=== PATIENT | female | born 1995 | race Caucasian/White ===

== ENCOUNTER → 2018-01-02 11:05 | Outpatient (CLI) | payer MEDICAID, SELFPAY ==
[2018-01-02 11:32] LABS: Basophils % 0.6 % (0.1-2.0); Eosinophils # 0.6 K/mm3 (0.0-0.4); Eosinophils % 7.4 % (0.1-12.0); Hematocrit 39.6 % (37.0-47.0); Hemoglobin 13.1 g/dL (12.2-16.2); Lymphocytes # 2.2 K/mm3 (0.7-4.5); Mean Corpuscular HGB Conc 33.1 g/dL (31.8-35.4); Mean Corpuscular Hemoglobin 29.8 pg (27.0-31.2); Mean Platelet Volume 7.5 fl (7.4-10.4); Monocytes # 0.5 K/mm3 (0.1-1.0); Monocytes % 6.3 % (1.7-9.3); Neutrophils # 4.2 K/mm3 (1.8-7.8); Neutrophils % 56.7 % (37.0-80.0); Platelet Count 265 K/mm3 (142-424); Red Cell Distribution Width 14.5 % (11.5-17.5); White Blood Count 7.5 K/mm3 (4.8-10.8)
[2018-01-03 08:15] LABS: HIV Screen 4th Generation wRfx Non Reactive (Non Reactive); Hepatitis B Surface Antigen Negative (Negative); Hepatitis C Antibody <0.1 s/co ratio (0.0-0.9)
[2018-01-03 17:27] LABS: Rapid Plasma Reagin Ab Titer Non Reactive (NonRea<1:1)
== END ==
PROVIDERS: Visit Provider Nurse Practitioner Obstetrics & Gynecology
DX: Z34.90 Encounter for supervision of normal pregnancy, unspecified, unspecified trimester (principal)
CPT/HCPCS: 36415; 85025; 86592; 86703; 86762; 86850; 87340; 87380; G0432

== ENCOUNTER → 2018-01-07 13:50 | Outpatient (CLI) | payer MEDICAID, SELFPAY ==
--- NOTE | 2018-01-07 13:50 | US_ITS ---
US OB transvaginal HISTORY: Evaluate gestational age/viability ITS.REASON: DATES ORDERING PHYSICIAN: Luis Ferrell MD PATIENT AGE: 22 years COMPARISON: None FINDINGS: An intrauterine gestational sac is present with a pole with a crown-rump length of 0.95cm correlating to gestational age of 6w5d. heart tones are present with an FHR of 149 bpm's. Yolk sac is noted. Adnexa: There is a 17 mm left ovarian cyst. IMPRESSION: Live intrauterine gestation at 6 weeks 5 days with an estimated due date of 08/28/2018. 17 mm left ovarian cyst
== END ==
PROVIDERS: Family Provider Family Medicine; PCP Family Medicine; Visit Provider Nurse Practitioner Obstetrics & Gynecology
DX: O26.841 Uterine size-date discrepancy, first trimester (principal)
CPT/HCPCS: 76830

== ENCOUNTER → 2018-04-09 13:28 | Outpatient (CLI) | payer MEDICAID, SELFPAY ==
--- NOTE | 2018-04-09 13:31 | US_ITS ---
US OB /maternal detail: INDICATION: ITS.REASON: US OB Complete-20 wk+ Anatomy Scan ORDERING PHYSICIAN: Luis Ferrell MD PATIENT AGE: 22 years TECHNIQUE: ultrasound transabdominal scanning. COMPARISON: No previous relevant studies. FINDINGS: Single viable intrauterine gestation. Cephalic position. Placenta: Posterior Placenta w/ Lateral wrap placenta grade 1. There is average amount fluid. Complete survey performed and was unremarkable on the submitted images as in PACS. No discrete anomalies identified on survey imaging by technologist. Active fetus. Three-vessel cord with satisfactory umbilical cord insertion. 4- chamber heart noted. Survey of brain & ventricles unremarkable. Face and neck survey unremarkable. Diaphragm and chest views unremarkable. Abdomen: Both kidneys noted and unremarkable. Stomach noted and satisfactory. Spine: Survey of the spine satisfactory with no anomalies identified nor imaged. Both arms and legs noted. Amniotic Fluid: Adequate. Maternal adnexa: No significant findings. Measurements: Average ultrasound age 20w1d. Gestational Age 20w4d. Estimated due date by ultrasound age 1008/26/2018. Estimated weight 309 grams. This is 10th percentile based on last menstrual period BPD = 21w0d OFD = 20w5d HC = 20w0d AC = 20w1d FL = 19w1d Heart Rate = 150 bpm Cerebellum = 20w0d Humerus = 19w5d HC/AC is 1.18 (1.09-1.26). CI is 80% ( 70-86%). FL/BPD is 60%. FL/AC is 20%. IMPRESSION: Single live fetus in cephalic presentation with an average ultrasound age of 20 weeks 1 day. Estimated due date is 08/26/2018. No obvious anomalies. Please see above for detail
== END ==
PROVIDERS: Family Provider Family Medicine; PCP Family Medicine; Visit Provider Nurse Practitioner Obstetrics & Gynecology
DX: Z36.0 Encounter for antenatal screening for chromosomal anomalies (principal)
CPT/HCPCS: 76811

== ENCOUNTER 2018-05-13 17:18 | Outpatient (CLI) | payer MEDICAID, SELFPAY ==
[2018-05-13 17:33] VITALS: BP 101/68; PULSE 98; RESP 18; TEMP 37.1; O2SAT 100
[2018-05-13 17:46] LABS: Microscopic, Urine URINE MICROSCOPIC (MICROSCOPIC)
[2018-05-13 17:48] LABS: Appearance,Urine SL CLOUDY (Clear); Blood, Urine Negative (Negative); Color,Urine YELLOW (Yellow); Glucose,Urine (UA) Negative (Negative); Ketones,Urine TRACE (Negative); Leukocyte Esterase,Urine 1+ (Negative); Nitrate,Urine Negative (Negative); Protein,Urine Negative (Negative); Specific Gravity, Urine 1.025 (1.005-1.030)
[2018-05-13 17:54] LABS: Bilirubin,Urine Negative (Negative)
[2018-05-13 18:52] LABS: Bacteria,Urine 1+ /lpf; WBC,Urine Occasional #/hpf (0-3)
== END 2018-05-13 18:10 | disposition home or self-care (01) ==
LOC: OBOUT 17:19 → OB 17:20
PROVIDERS: PCP Family Medicine; Visit Provider Obstetrics & Gynecology
DX: O26.92 Pregnancy related conditions, unspecified, second trimester (principal); Z3A.25 25 weeks gestation of pregnancy; R11.2 Nausea with vomiting, unspecified
CPT/HCPCS: 59025; 81001; 87086

== ENCOUNTER → 2018-06-19 08:34 | Outpatient (CLI) | payer MEDICAID, SELFPAY ==
[2018-06-19 09:59] LABS: Glucose,Fasting 95 mg/dL (60-105)
[2018-06-19 11:31] LABS: Glucose 1 Hour 154 mg/dL (74-106)
[2018-06-19 11:53] LABS: Glucose 2 Hour 130 mg/dL (74-106)
[2018-06-19 12:40] LABS: Glucose 3 Hour 104 mg/dL (74-106)
== END ==
PROVIDERS: Family Provider Family Medicine; PCP Family Medicine; Visit Provider Nurse Practitioner Obstetrics & Gynecology
DX: R73.09 Other abnormal glucose (principal)
CPT/HCPCS: 36415; 82951

== ENCOUNTER → 2018-07-29 16:50 | Outpatient (REF) | payer MEDICAID, SELFPAY | LOC: LAB 16:50 | PROVIDERS: Visit Provider Nurse Practitioner Obstetrics & Gynecology | DX: Z34.90 Encounter for supervision of normal pregnancy, unspecified, unspecified trimester (principal) | CPT/HCPCS: 86403 ==

== ENCOUNTER 2018-08-15 22:51 | Inpatient (IN) ==
[2018-08-16 03:05] LABS: Basophils # 0.1 K/mm3 (0-0.2); Basophils % 0.4 % (0.1-2.0); Eosinophils # 0.2 K/mm3 (0.0-0.4); Eosinophils % 1.6 % (0.1-12.0); Hematocrit 28.8 % (37.0-47.0); Hemoglobin 9.8 g/dL (12.2-16.2); Lymphocytes # 1.9 K/mm3 (0.7-4.5); Lymphocytes % 14.5 K/mm3 (10-50); Mean Corpuscular HGB Conc 34.1 g/dL (31.8-35.4); Mean Corpuscular Hemoglobin 28.7 pg (27.0-31.2); Mean Corpuscular Volume 84.1 fl (81-99); Mean Platelet Volume 7.4 fl (7.4-10.4); Monocytes # 0.6 K/mm3 (0.1-1.0); Monocytes % 4.7 % (1.7-9.3); Neutrophils # 10.2 K/mm3 (1.8-7.8); Neutrophils % 78.8 % (37.0-80.0); Platelet Count 302 K/mm3 (142-424); Red Blood Count 3.43 M/mm3 (4.20-5.40); Red Cell Distribution Width 14.9 % (11.5-17.5); White Blood Count 12.9 K/mm3 (4.8-10.8)
[2018-08-16 03:18] LABS: Albumin Level 2.6 gm/dL (3.4-5.0); Albumin/Globulin Ratio 0.7 (1.1-1.8); Bilirubin,Total 0.4 mg/dL (0.2-1.0); Calcium 8.2 mg/dL (8.5-10.1); Globulin 3.9 gm/dl (1.3-3.2); Total Protein,Serum 6.5 gm/dL (6.4-8.2)
--- NOTE | 2018-08-16 08:44 | Progress Note ---
[facility] Anesthesia Checklist - Patient Identification Patient Identification: Arm Band, Verbal (Name & ) - Structural Data Admitted From: Inpatient Planned Operative Procedure/s: btl Consent for Planned Operative Procedure(s) Verified: Yes Verified Documents: Surgical Consent - NPO Status Verified Time NPO: 00:00 - Additional verifications Patient : Yes Anesthesia Reactions: No Hx Blood Transfusions: No Blood Transfusion Reaction: No Cephalosporin Allergy: No Previous Colonoscopy: No - Cardiovascular Assessment Heart Sounds: S1 & S2 Pulse Strength: Baseline Pulse Rhythm: Regular Peripheral Edema: No - Airway Assessment C-Spine Mobility Assessed: Yes TMJ Mobility Assessed: Yes Dentition: Good Dentition - Neurological Assessment Level of Consciousness: Awake, Alert, Appropriate Hx Seizures: No Numbness or tingling in extremities: No - Anesthesia Plan Anesthesia Risk discussed: Yes Anesthesia Plan: Verified ASA Class: II Anesthesia Type: Spinal [facility] History I have reviewed the patient's past medical history: Yes Medical History: Reports:: Anxiety, Nephritis Denies:: Depression, Diabetes Mellitus Type 1, Hyperlipidemia, Hypertension, Migraine, MRSA, Seizures Other Surgeries: Yes: , Other Amputation: No Fractures: No - *Social History Smoking Status: Current every day smoker Tobacco Type: cigarettes Alcohol Intake: never Substance Use Type: denies use - Psychiatric History Pschychiatric History:: Reports:: Anxiety Denies:: Depression *Family Hx:: No significant family history 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
--- NOTE | 2018-08-16 09:02 | History & Physical Report ---
OB - H&P: HPI Antepartum - History of Present Illness Chief complaint: Contractions History of present illness: She is a 23-year-old 7 para 5 abortus 1 at 38 and 6 weeks gestational age. She came in having regular contractions. We attempted to stop her contractions with IV fluids and Brethine. She continued however to have contractions every 5 minutes. She changed her cervix from 2-4 cm. As result of that we will go ahead with a repeat lower segment transverse section. She would also like a bilateral salpingectomy. - History of Present Criteria for establishing EDC:: LMP confirmed by 1st trimester US care: good care Ultrasounds: normal 1st trimester US, normal mid trimester US Obstetrical complications: none, previous Medical complications: none [facility] History I have reviewed the patient's past medical history: Yes Medical History: Reports:: Anxiety, Nephritis Denies:: Depression, Diabetes Mellitus Type 1, Hyperlipidemia, Hypertension, Migraine, MRSA, Seizures Other Medical History: Denies: Blood Transfusion Reaction Other Surgeries: Yes: , Other Amputation: No Fractures: No - *Social History Smoking Status: Current every day smoker Tobacco Type: cigarettes Alcohol Intake: never Substance Use Type: denies use - Psychiatric History Pschychiatric History:: Reports:: Anxiety Denies:: Depression *Family Hx:: No significant family history 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 Review of Systems - Review of Systems Review of systems:: pertinent systems reviewed and negative unless documented below Meds Home Medications Medication Instructions Recorded Confirmed Type pediatric multivitamin no.49 1 tab PO DAILYP PRN 12/30/17 08/12/18 History chewable tablet Ferrous Sulfate 325 mg PO DAILY 08/15/18 08/15/18 History Allergies Allergy/AdvReac Type Severity Reaction Status Date / Time morphine [MORPHINE] Allergy Unknown Verified 08/12/18 13:49 oxycodone [From PERCOCET] Allergy Unknown Verified 08/12/18 13:49 OB - H&P: Exam - Physical Exam Vital signs: Temp Pulse Resp BP Pulse Ox 98.1 F 95 H 18 120/67 100 08/15/18 23:28 08/15/18 23:28 08/15/18 23:28 08/15/18 23:28 08/15/18 23:28 - Constitutional no acute distress - Routine HEENT Exam Head: Present: normocephalic Eye: Present: EOMI, PERRL ENT: Present: mucous membranes moist - Routine Neck Exam Present: supple, full ROM - Routine Respiratory Exam Absent: accessory muscle use (good air entry bilaterally), respiratory distress, wheezes, crackles - Routine Cardiovascular Exam Present: RRR. Absent: murmur - Routine Abdominal Exam Present: soft, normoactive bowel sounds. Absent: tenderness, distended, guarding - Routine Rectal Exam Patient deferred: visual exam, digital exam - Routine Exam Patient deferred: external exam, groin exam, perineal exam - Routine Extremities Exam Present: full ROM. Absent: cyanosis, edema - Routine Skin Exam Present: intact. Absent: cyanosis - Routine Neurological Exam Present: alert, oriented X3 - Routine Psychiatric Exam Present: normal affect OB - Results - Labs Labs: Short CBC 08/16/18 Range/Units 02:55 WBC 12.9 H (4.8-10.8) K/mm3 Hgb 9.8 L (12.2-16.2) g/dL Hct 28.8 L (37.0-47.0) % Plt Count 302 (142-424) K/mm3 BMP 08/16/18 02:55 Sodium 137 Potassium 3.0 L Chloride 103 Carbon Dioxide 24 BUN 4 L Creatinine 0.58 Glucose 103 Calcium 8.2 L Liver Function 08/16/18 Range/Units 02:55 Total Bilirubin 0.4 (0.2-1.0) mg/dL AST 12 L (15-37) U/L ALT 14 (12-78) U/L Alkaline Phosphatase 178 H (46-116) U/L Albumin 2.6 L (3.4-5.0) gm/dL OB - A/P Antepartum (1) Previous section complicating Current visit: Yes Status: Acute (2) Encounter for tubal ligation Current visit: Yes Status: Acute - Additional Plan Planning to breastfeed?: Yes Plan: other Additional Information:: She has had a previous section so we will go ahead with a repeat lower segment transverse section. Also like a bilateral salpingectomy.
--- NOTE | 2018-08-16 09:58 | Operative Note ---
Date of procedure: 08/16/18 Pre-op Diagnosis:: Term , active labor, desire for sterilization, previous section Post-op Diagnosis:: Term , previous section, desire sterilization, active labor Procedure performed:: Repeat lower segment transverse section and bilateral salpingectomy Surgeon:: Luis Ferrell MD Geology Faculty Member(s):: Dr. Villafuerte SECURITIES SUPERVISOR:: Chucky Garcia Anesthesia: spinal Estimated blood loss (mL): 600 Clinical Note:: She is a 23-year-old 7 para 5 aborta 1 who was 38 and 6 weeks gestational age. She was admitted overnight with contractions and changed her cervix from 2-4 cm. She was scheduled for a repeat section in about 48 hours. As a result of the labor and changes in her cervix we elected to go ahead with a repeat lower segment transverse section. She still expresses her sterilization so we performed a bilateral salpingectomy as well. Operative findings:: She delivered a liveborn male child in the cephalic mentation by section at 9:21 AM on the morning of August 16, 2018. The baby had Apgars of 9 at 1 minute and 9 at 5 minutes. There was a loose cord. Ovaries and tubes appeared normal. Operative note:: She was taken to the operating room where spinal anesthesia was found be adequate. She was prepped and draped in normal sterile fashion in the supine position with a leftward tilt. A Bolaños catheter was in the bladder. She had a 1/4 inch wide keloid scar. A Pfannenstiel skin incision was made with knife along each side of her scar tissue. I then removed the scar tissue using cautery. We then carried through to the underlying layer of fascia with caute ry. The fascia was opened in the midline with cautery and extended laterally using Thompson scissors. Farhad clamps were applied to the superior aspect of the fascial incision which was tented up and the underlying rectus muscles dissected off using cautery. The [place] clamps were then applied to the inferior aspect of the fascial incision which in a similar fashion was tented up and the underlying rectus muscles dissected off using cautery. The rectus muscles were then in the midline, the peritoneum identified, and entered sharply with Metzenbaum scissors. This incision was then extended superiorly and inferiorly with cautery. We had good visualization of the bladder inferiorly. The bladder peritoneum was then opened in the midline and extended laterally using Metzenbaum scissors. A bladder flap was created digitally. The lower blade of the Tori was inserted so as to push the bladder out of the way. Transverse incision was made through the uterine muscle to the amnion. This in cision was then extended laterally using fingers traction. The amnion was entered sharply with knife. The 's head was then delivered atraumatically. A loose nuchal cord was easily reduced. This was followed by the anterior shoulder and the rest of the 's body atraumatically. The oropharynx and nasopharynx were bulb suctioned. The infant was then handed off to Dr. Adams who assigned Apgars of 9 at 1 minute and 9 at 5 minutes. We then obtained cord blood as well as cord pH. Using gentle traction on the cord and countertraction on the fundus I was able to easily deliver the placenta intact. It had a normal three-vessel cord. The uterus was then cleared of clots and debris and exteriorized from the abdominal cavity. The uterine incision was then closed using running 0 Vicryl suture in a locked fashion. A second layer of the same suture was used to imbricate the first layer. The bladder peritoneum was then closed using running 2-0 Vicryl suture in a locked fashion. We then performed a bilateral salpingectomy by grasping the distal end of the tube and using the side of the cautery blade I cauterized along the mesosalpinx. I then cauterized along the tube at the uterine cornua. This was followed by the same procedure on the left tube. There is a small amount of bleeding along the mesosalpinx and 2 [id number] sutures were used to obtain excellent hemostasis. The gutters and cul-de-sac were then cleared of clots and debris and the uterus was returned the abdominal cavity. Once again hemostasis was assured. The peritoneum was grasped with Rhea clamps and closed using running 2-0 Vicryl suture. The rectus muscles were then reapproximated using running 0 Vicryl suture. The fascia was closed using running #1 Vicryl suture. The subcutaneous tissues were then irrigated with warm water followed by closure Zakiya's fascia using running 2-0 Monocryl suture. The skin was closed with kristin. The skin was then cleaned with Hibiclens twice. Sterile dressings were applied. She tolerated the procedure well and was taken to the recovery room in excellent condition. All sponges minute and needle counts were correct. Estimate a blood loss was approximately 600 mL. Condition: stable Disposition: PACU Specimens:: bilateral fallopian tubes Complications:: None
--- NOTE | 2018-08-16 10:04 | Progress Note ---
[facility] Anesthesia Record Part I Intake, IV Amount: 1,250 Estimated blood loss (mL): 600 Urine output (mL): 500 Blood Products used (#): none Blood Pressure: 108/61 SaO2: 100 Pulse Rate: 136 Respiratory Rate: 22 Temperature: 97.8 F Patient is:: Awake, Stable Stable to PACU at:: 10:00
--- NOTE | 2018-08-16 10:05 | Progress Note ---
[facility] Anesthesia Record Part II Discharge Time: 10:30 Destination: OB Outpatient Service PACU nurse assessment reviewed?: Yes Patient Condition:: Good Anesthesia Complications:: None
--- NOTE | 2018-08-16 11:33 | Pharmacy Consult Notes ---
[facility] Pharmacy VTE Monitoring - Patient Demographics Admission date: 08/16/18 Report Date: 08/16/18 Time: 11:32 Allergies/Adverse Reactions: Patient Allergies morphine [MORPHINE] Allergy (Unknown, Verified 08/12/18 13:49) oxycodone [From PERCOCET] Allergy (Unknown, Verified 08/12/18 13:49) Height: 1.6 m Weight: 58.513 kg Patient Problems: Current Active Problems Previous section complicating (Acute) Encounter for tubal ligation (Acute) - VTE Risk Labs: VTE Related Lab Results Hgb 9.8 g/dL (12.2-16.2) L 08/16/18 02:55 Hct 28.8 % (37.0-47.0) L 08/16/18 02:55 Plt Count 302 K/mm3 (142-424) 08/16/18 02:55 BUN 4 mg/dL (7-18) L 08/16/18 02:55 Creatinine 0.58 mg/dL (0.55-1.02) 08/16/18 02:55 Estimated Creat Clear 138 mL/min (0-300) 08/16/18 02:55 - Prophylaxis VTE Prophylaxis Ordered?: Yes Types of VTE Prophylaxis: IPCS Thigh High Location of Applied Device: Bilateral Lower Extremeties - VTE Diagnosis Confirmed Treatment or plan recommended: Continue Current Treatment
[2018-08-16 13:16] VITALS: BP 122/64
[2018-08-16 13:54] LABS: Microscopic, Urine URINE MICROSCOPIC (MICROSCOPIC)
[2018-08-16 14:14] LABS: Appearance,Urine CLEAR (Clear); Bilirubin,Urine Negative (Negative); Blood, Urine Negative (Negative); Color,Urine YELLOW (Yellow); Glucose,Urine (UA) Negative (Negative); Ketones,Urine 2+ (Negative); Leukocyte Esterase,Urine Negative (Negative); Protein,Urine Negative (Negative)
[2018-08-16 14:51] LABS: Bacteria,Urine Trace /lpf; Squamous Epithelial Cell,Urine Occasional #/hpf (0-5)
[2018-08-17 06:36] LABS: Basophils % 0.3 % (0.1-2.0); Eosinophils # 0.2 K/mm3 (0.0-0.4); Eosinophils % 1.7 % (0.1-12.0); Hemoglobin 8.2 g/dL (12.2-16.2); Lymphocytes # 1.6 K/mm3 (0.7-4.5); Lymphocytes % 14.1 K/mm3 (10-50); Mean Corpuscular HGB Conc 31.9 g/dL (31.8-35.4); Mean Corpuscular Hemoglobin 26.8 pg (27.0-31.2); Mean Corpuscular Volume 83.9 fl (81-99); Mean Platelet Volume 7.7 fl (7.4-10.4); Monocytes # 0.8 K/mm3 (0.1-1.0); Monocytes % 6.9 % (1.7-9.3); Neutrophils # 8.5 K/mm3 (1.8-7.8); Platelet Count 296 K/mm3 (142-424); Red Blood Count 3.08 M/mm3 (4.20-5.40)
[2018-08-17 06:44] LABS: Hematocrit 25.8 % (37.0-47.0)
--- NOTE | 2018-08-17 12:05 | Progress Note ---
Internal Medicine - PN: Subj *Date: 08/17/18 *Time: 12:05 Interval history: She continues to do well. She is eating and drinking and ambulating for her pain is reasonably well controlled although I think we can do better and we will increase her Lortab to 15 mg every 4 hours instead of 7.5. Exam Vital signs and Labs for Last 24 Hours: Temp Pulse Resp BP Pulse Ox 97.5 F L 79 20 122/64 100 08/16/18 10:30 08/16/18 10:30 08/16/18 10:30 08/16/18 10:30 08/16/18 10:30 Laboratory Results - last 24 hr 08/16/18 03:20: Urine Color Yellow, Urine Appearance Clear, Urine pH 7.0, Ur Specific [place] 1.010, Urine Protein Negative, Urine Glucose (UA) Negative, Urine Ketones 2+, Urine Blood Negative, Urine Nitrate Negative, Urine Bilirubin Negative, Urine Urobilinogen 1.0, Ur Leukocyte Esterase Negative, Urine RBC None, Urine WBC 3-5, Ur Squamous Epith Cells Occasional, Urine Bacteria Trace 08/17/18 06:09: WBC 11.0 H, RBC 3.08 L, Hgb 8.2 L, Hct 25.8 L, MCV 83.9, MCH 26.8 L, MCHC 31.9, RDW 15.0, Plt Count 296, MPV 7.7, Neut % (Auto) 77.0, Lymph % (Auto) 14.1, [place] % (Auto) 6.9, Eos % (Auto) 1.7, Baso % (Auto) 0.3, Neut # (Auto) 8.5 H, Lymph # (Auto) 1.6, [place] # (Auto) 0.8, Eos # (Auto) 0.2, Baso # (Auto) 0.0 I & O for Last 24 hours: Intake & Output 08/15/18 08/16/18 08/17/18 08/18/18 11:59 11:59 11:59 11:59 Intake Total 1400 / 1400 Output Total 700 / 700 Balance 700 / 700 Weight 129 lb - Constitutional no acute distress Assessment and Plan (1) Previous section complicating Current visit: Yes Status: Acute Category: Medical Code(s): O34.219 - Maternal care for unspecified type scar from previous delivery (2) Encounter for tubal ligation Current visit: Yes Status: Acute Category: Medical Code(s): Z30.2 - Encounter for sterilization - Assessment and plan all Dx Assessment and Plan for all problems:: She continues to do well. We will increase her Lortabs. We will plan to send her home in 48 hours.
--- NOTE | 2018-08-18 09:27 | Progress Note ---
Internal Medicine - PN: Subj *Date: 08/18/18 *Time: 09:25 Interval history: She is doing very well. She is eating and drinking and ambulating. She is breast-feeding. Her lochia is normal. Her incision is clean and dry. Her pain is somewhat improved today. Exam Vital signs and Labs for Last 24 Hours: Temp Pulse Resp BP Pulse Ox 97.5 F L 79 20 122/64 100 08/16/18 10:30 08/16/18 10:30 08/16/18 10:30 08/16/18 10:30 08/16/18 10:30 I & O for Last 24 hours: Intake & Output 08/15/18 08/16/18 08/17/18 08/18/18 11:59 11:59 11:59 11:59 Intake Total 1400 / 1400 Output Total 700 / 700 Balance 700 / 700 Weight 129 lb - Constitutional no acute distress - *Routine Abdominal Exam Present: soft (Her incision is clean and dry), normoactive bowel sounds. Absent: tenderness, rebound, guarding, mass Assessment and Plan (1) Previous section complicating Current visit: Yes Status: Acute Category: Medical Code(s): O34.219 - Maternal care for unspecified type scar from previous delivery (2) Encounter for tubal ligation Current visit: Yes Status: Acute Category: Medical Code(s): Z30.2 - Encounter for sterilization - Assessment and plan all Dx Assessment and Plan for all problems:: She is doing well. We will plan to send her home tomorrow.
--- NOTE | 2018-08-19 08:19 | Discharge Summary ---
General - General Admission date:: 08/16/18 Discharge date: 08/19/18 HPI HPI: She is a 23-year-old 7 now para 6 aborta 1 who is 38 and 6 weeks gestational age. She was scheduled for a repeat lower segment transverse section but came in in active labor. She also expressed desire for sterilization and was offered bilateral salpingectomy at the time of . Hospital Course Hospital Course: On August 16, 2018 she underwent a repeat lower segment transverse section and bilateral salpingectomy. She delivered a liveborn male child at 9:21 AM that weighed 7 pounds 6 ounces. He had Apgars of 9 at 1 minute and 9 at 5 minutes. She has done well and has remained afebrile throughout her hospitalization. She is eating and drinking and ambulating. She is breast-feeding. Her lochia is normal. She has O+ blood, she is rubella immune and was group B streptococcus negative. Her vacuum drier tender is Dr. Adams. She is discharged home to follow-up with me in approximately 2 weeks time. She will take [id number] anti-inflammatories and she was given a prescription for Lortab 7.5/325 number 30 tablets. Objective Vital signs: Temp Pulse Resp BP Pulse Ox 97.5 F L 79 20 122/64 100 08/16/18 10:30 08/16/18 10:30 08/16/18 10:30 08/16/18 10:30 08/16/18 10:30 no acute distress DS: Diagnosis - Discharge Diagnosis (1) Previous section complicating Status: Acute (2) Encounter for tubal ligation Status: Acute Discharge Plan - Patient Discharge Instructions ACTIVITY: No heavy lifting DIET: continue same diet Patient Instructions: DI for Hemorrhage, Depression, DI for - Follow up Plan Disposition: Home, Self-Detention Medications: Home Medications Medication Instructions Recorded Confirmed Type pediatric multivitamin no.49 1 tab PO DAILY 12/30/17 08/16/18 History chewable tablet Ferrous Sulfate 325 mg PO DAILY 08/15/18 08/15/18 History Prescriptions/Medication Reconciliation: New Hydrocodone/Acetaminophen [Lortab 7.5/325mg tablet] 1 tab PO Q4HP PRN #30 tab PRN Reason: Moderate To Severe Pain Continue pediatric multivitamin no.49 chewable tablet 1 tab PO DAILY Ferrous Sulfate 325 mg PO DAILY
== END 2018-08-19 11:20 | disposition home or self-care (01) ==
LOC: OBOUT 22:51 → OB 22:51 → OBSVTOIN 08-16 01:27
PROVIDERS: ADMIT Nurse Practitioner Obstetrics & Gynecology; ATTEND Nurse Practitioner Obstetrics & Gynecology

== ENCOUNTER 2019-09-11 23:07 | Inpatient (IN) ==
[2019-09-11 23:38] LABS: Microscopic, Urine URINE MICROSCOPIC (MICROSCOPIC)
[2019-09-11 23:41] LABS: Basophils # 0.1 K/mm3 (0-0.2); Basophils % 0.3 % (0.1-2.0); Eosinophils # 0.5 K/mm3 (0.0-0.4); Eosinophils % 2.6 % (0.1-12.0); Hematocrit 50.9 % (37.0-47.0); Lymphocytes # 2.2 K/mm3 (0.7-4.5); Lymphocytes % 10.6 % (10-50); Mean Corpuscular HGB Conc 31.4 g/dL (31.8-35.4); Mean Corpuscular Volume 94.3 fl (81-99); Mean Platelet Volume 7.8 fl (7.4-10.4); Monocytes # 0.9 K/mm3 (0.1-1.0); Monocytes % 4.2 % (1.7-9.3); Neutrophils # 16.9 K/mm3 (1.8-7.8); Neutrophils % 82.3 % (37.0-80.0); Platelet Count 313 K/mm3 (142-424); Red Cell Distribution Width 13.5 % (11.5-17.5)
[2019-09-11 23:47] LABS: White Blood Count 20.5 K/mm3 (4.8-10.8)
[2019-09-11 23:50] LABS: Appearance,Urine CLEAR (Clear); Bilirubin,Urine Negative (Negative); Blood, Urine Negative (Negative); Color,Urine YELLOW (Yellow); Glucose,Urine (UA) Negative (Negative); Ketones,Urine Negative (Negative); Leukocyte Esterase,Urine 1+ (Negative); Protein,Urine Negative (Negative); Specific Gravity, Urine 1.025 (1.005-1.030); Urobilinogen,Urine 0.2 EU/dl (0.2)
[2019-09-11 23:53] LABS: Alanine Aminotransferase 15 U/L (12-78); Albumin Level 4.3 gm/dL (3.4-5.0); Albumin/Globulin Ratio 1.1 (1.1-1.8); Alkaline Phosphatase 59 U/L (46-116); Amylase 51 U/L (25-115); Anion Gap 13.7 mEq/L (5-15); Aspartate Amino Transferase 15 U/L (15-37); Bilirubin,Total 0.6 mg/dL (0.2-1.0); Blood Urea Nitrogen 12 mg/dL (7-18); C-Reactive Protein < 0.2 mg/dL (0.0-0.9); Calcium 8.7 mg/dL (8.5-10.1); Carbon Dioxide 26 mmol/L (21.0-32.0); Chloride 102 mmol/L (98-107); Globulin 3.9 gm/dl (1.3-3.2); Glucose 117 mg/dL (74-106); Sodium 138 mmol/L (136-145); Total Protein,Serum 8.2 gm/dL (6.4-8.2)
[2019-09-11 23:54] LABS: WBC,Urine 20-50 #/hpf (0-3)
[2019-09-12 00:02] LABS: Eosinophils % 5 % (0-3); Lymphocytes % 6 % (10-50); Monocytes % 1 % (2-9); Neutrophils % 80 % (42-76); RBC Morphology Normal; Total Cells Counted 100
[2019-09-12 00:05] LABS: Erythrocyte Sedimentation Rate 4 mm/hr (0-20)
--- NOTE | 2019-09-12 00:19 | Emergency Department Note ---
ED Disposition Clinical Impression: SIRS (systemic inflammatory response syndrome) UTI (urinary tract infection) Qualifiers: Urinary tract infection type: site unspecified Hematuria presence: without hematuria Qualified Code(s): N39.0 - Urinary tract infection, site not specified Cholelithiasis Qualifiers: Cholelithiasis location: gallbladder Cholecystitis presence: without cholecystitis Biliary obstruction: without biliary obstruction Qualified Code(s): K80.20 - Calculus of gallbladder without cholecystitis without obstruction Disposition: Admitted as Observation Condition on Discharge: Good Instructions: DI for Acute Abdomen Referrals: Bora Zhang APRN [Primary Care Provider] - - Critical Care Critical Care Time: No Attestation: On 09/11/19, the high probability of a clinically significant, sudden or life threatening deterioration of the following system(s) required my full and direct attention, intervention and personal management. The time I documented below is in addition to time spent performing reported procedures but includes the following listed in this critical care notation. Medical Decision Making - Medical Records Medical records reviewed: Yes: I reviewed the patient's medical records. - Tej Inquiry Pt receiving controlled substance: No Vital Signs: 09/11/19 23:19 Temperature 97.5 F L Temperature Source Oral Pulse Rate [Left Radial] 118 H Respiratory Rate 17 Blood Pressure [Right Arm] 131/81 Blood Pressure Mean [Right Arm] 97 Blood Pressure Source [Right Arm] Automatic Cuff Blood Pressure Position [Right Arm] Sitting 02 Sat by Pulse Oximetry 98 Oxygen Delivery Method Room Air - Lab Data Lab results reviewed: Yes: I reviewed the patient's lab results. Lab Results 09/11/19 23:20: Urine Color Yellow, Urine Appearance Clear, Urine pH 6.0, Ur Specific [place] 1.025, Urine Protein Negative, Urine Glucose (UA) Negative, Urine Ketones Negative, Urine Blood Negative, Urine Nitrate Negative, Urine Bilirubin Negative, Urine Urobilinogen 0.2, Ur Leukocyte Esterase 1+ A, Urine WBC 20-50, Ur Squamous Epith Cells 10-20 09/11/19 23:20: WBC 20.5 H*, RBC 5.40, Hgb 16.0, Hct 50.9 H, MCV 94.3, MCH 29.6, MCHC 31.4 L, RDW 13.5, Plt Count 313, MPV 7.8, Neut % (Auto) 82.3 H, Lymph % (Auto) 10.6, [place] % (Auto) 4.2, Eos % (Auto) 2.6, Baso % (Auto) 0.3, Neut # (Auto) 16.9 H, Lymph # (Auto) 2.2, [place] # (Auto) 0.9, Eos # (Auto) 0.5 H, Baso # (Auto) 0.1, Total Counted 100, Neutrophils % (Manual) 80 H, Band Neutrophils % 8.0, Lymphocytes % (Manual) 6 L, Monocytes % (Manual) 1 L, Eosinophils % (Manual) 5 H, Platelet Estimate Normal, RBC Morphology Normal, ESR 4 09/11/19 23:20: Sodium 138, Potassium 3.7, Chloride 102, Carbon Dioxide 26, Anion Gap 13.7, BUN 12, Creatinine 0.81, Estimated Creat Clear 76, Estimated GFR 86, Est GFR ( Amer) 104, Glucose 117 H, Calcium 8.7, Total Bilirubin 0.6, AST 15, ALT 15, Alkaline Phosphatase 59, C-Reactive Protein < 0.2, Total Protein 8.2, Albumin 4.3, Globulin 3.9 H, Albumin/Globulin Ratio 1.1, Amylase 51 09/11/19 23:20: Lipase 126 09/11/19 23:59: Lactate 0.8 Result diagrams: 09/11/19 23:20 09/11/19 23:20 Orders (Tests/Meds): ED MEDICATIONS Generic Name Dose Route Start Last Admin Trade Name Freq PRN Reason Stop Dose Admin Sodium Chloride 1,000 mls @ 999 mls/hr 09/11/19 23:45 09/11/19 23:37 Sod Chlor 0.9% 1000ml Bag IV 09/12/19 00:45 999 mls/hr .Q1H1M KATINA Administration Discontinued Medications Generic Name Dose Route Start Last Admin Trade Name Freq PRN Reason Stop Dose Admin Ertapenem 1 gm/ Sodium 50 mls @ 100 mls/hr 09/12/19 00:13 09/12/19 00:28 Chloride IV 09/12/19 00:14 100 mls/hr ONCE ONE Administration Protocol Ioversol 75 ml 09/12/19 01:00 09/12/19 01:01 Rad-Optiray 350 100ml Vial IV 09/12/19 01:01 75 ml ONCE ONE Administration Protocol Ketorolac Tromethamine 30 mg 09/11/19 23:33 09/11/19 23:37 Toradol 30mg/Ml Vial IV 09/11/19 23:34 30 mg ONCE ONE Administration Ondansetron HCl 4 mg 09/11/19 23:33 09/11/19 23:37 Zofran 4mg/2ml Vial IV 09/11/19 23:34 4 mg ONCE ONE Administration Sodium Chloride 10 ml 09/12/19 01:00 09/12/19 01:01 Rad-Saline Flush 10ml Syringe IV 09/12/19 01:01 10 ml ONCE ONE Administration ORDERS Category Date Time Status CT abdomen pelvis w con Stat Cat Scan 09/11/19 23:32 Taken Blood Culture Stat Micro 09/11/19 23:59 Received Urine Culture Stat Micro 09/11/19 23:20 Received - CT Data CT Scan: Abdomen, Pelvis Time Received: 01:[address] Reviewed: Yes: I have viewed the radiologist's interpretation Preliminary Findings: Abnormal (gallstone ) - Physician Consults Physician Consulted: pablo Reason -: Admission Nausea/Vomiting/Diarrhea HPI - General Chief complaint: Abdominal Pain Stated complaint: Pain in upper left abdomen;vomiting Time Seen by Provider: 09/11/19 23:40 Mode of Arrival: Ambulatory Source of Information: Patient, Medical Record Limitations: No Limitations Description of Symptoms (Recalled from ER Triage Doc. by RN): pt stated she has had chronic stomach pain for about 4 years but has increasingly gotten worse today in her LUQ. pt stated she has been nauseous and vomitting for the past 5 hours. - History of Present Illness HPI Narrative: pt with hx of upper abd pain with nausea with long hx of abd pain - worse last couple of days - MD complaint: nausea, vomiting, abdominal pain Onset (ago): hour(s) Associated Abdominal Pain: Yes Location of pain: LUQ Severity: moderate Associated symptoms: denies other symptoms - Related Data Previous Rx's Medication Instructions Recorded cephALEXin [Keflex 500mg Cap] 500 mg PO TID #30 cap 04/19/19 Allergies Allergy/AdvReac Type Severity Reaction Status Date / Time morphine [MORPHINE] Allergy Unknown Verified 09/01/18 13:59 oxycodone [From PERCOCET] Allergy Unknown Verified 09/01/18 13:59 [facility] History - Hepatitis A Screen Drug use history?: No High risk sexual behaviors?: No History of sexually transmitted infection?: No Currently employed?: No Childcare worker?: No Do you have indoor plumbing?: Yes Do you have electricity?: Yes Attestation statement:: This patient has been screened for Hepatitis A risk factors. I have reviewed the patient's past medical history: Yes Medical History: Reports:: Anxiety, Nephritis Denies:: Depression, Diabetes Mellitus Type 1, Hyperlipidemia, Hypertension, Migraine, MRSA, Seizures Other Medical History: Denies: Blood Transfusion Reaction Other Surgeries: Yes: , Other Amputation: No Fractures: No Comment: D&E 2013 - Social History Smoking Status: Current every day smoker Tobacco Type: cigarettes # Packs/Day (cigarettes): 1 Alcohol Intake: never Substance Use Type: denies use Occupational Status: unemployed - Psychiatric History Pschychiatric History:: Reports:: Anxiety Denies:: Depression Family Hx:: No significant family history Comment: Children Alive. Father Alive. Mother Alive. Siblings 2 brothers,1 sister,-healthy, 2 daughters EMERGENCY DISPATCHER history: Spontaneous Comment: #3-Miscarriage. #6- Complications Jeb Cardia ROS Obtained: Yes All systems reviewed & no additional complaints - Constitutional Constitutional: Denies fever(s), Reports malaise - Eyes Eyes: Denies change in vision - ENT Ears, Nose, Mouth, and Throat: Denies sore throat - Cardiovascular Cardiovascular: Denies chest pain - Respiratory Respiratory: No cough - Gastrointestinal Gastrointestingal: Reports: as per HPI, abdominal pain, nausea, vomiting - Genitourinary Female Genitourinary: Denies hematuria - Musculoskeletal Musculoskeletal: Denies joint pain - Integumentary/Breasts Skin/Breast: Denies rash - Neurologic Neurologic: Denies headache(s) Physical Exam - General General appearance: alert - Head Head exam: normocephalic - Eye Eye exam: Present: PERRL, EOMI. Absent: scleral icterus - ENT ENT exam: Present: mucous membranes dry - Neck Neck exam: Present: trachea midline - Respiratory Respiratory exam: Present: normal lung sounds bilaterally. Absent: respiratory distress - Cardiovascular Cardiovascular exam: Present: regular rate. Absent: systolic murmur - Abdominal Exam Abdominal exam: Present: soft, tenderness. Absent: guarding, rebound, rigidity Abdominal tenderness: Present: LUQ, moderate - Extremities Exam Extremities exam: Present: full ROM - Neurological Exam Neurological exam: Present: alert, oriented X3, CN II-XII intact - Psychiatric Psychiatric exam: Present: normal affect - Skin Skin exam: Absent: rash
[2019-09-12 07:10] LABS: Basophils % 0.2 % (0.1-2.0); Eosinophils # 0.4 K/mm3 (0.0-0.4); Eosinophils % 2.6 % (0.1-12.0); Hematocrit 40.9 % (37.0-47.0); Lymphocytes # 0.8 K/mm3 (0.7-4.5); Lymphocytes % 5.9 % (10-50); Mean Corpuscular HGB Conc 31.9 g/dL (31.8-35.4); Mean Platelet Volume 7.7 fl (7.4-10.4); Monocytes # 0.5 K/mm3 (0.1-1.0); Monocytes % 3.6 % (1.7-9.3); Neutrophils # 11.7 K/mm3 (1.8-7.8); Neutrophils % 87.7 % (37.0-80.0); Platelet Count 233 K/mm3 (142-424); Red Cell Distribution Width 13.5 % (11.5-17.5); White Blood Count 13.4 K/mm3 (4.8-10.8)
[2019-09-12 07:26] LABS: Anion Gap 8.8 mEq/L (5-15)
[2019-09-12 07:27] LABS: Hemoglobin 13.2 g/dL (12.2-16.2)
[2019-09-12 07:32] LABS: Calcium 7.5 mg/dL (8.5-10.1)
--- NOTE | 2019-09-12 08:48 | History & Physical Report ---
*Admission Date: 09/12/19 <Roshni Lee 09/12/19 08:56> *Chief complaint: abdominal pain, nausea, vomiting <Roshni Lee 09/12/19 08:56> *History of present illness: Ms. Purvis is a 24-year-old female with no significant medical history. Her physician is at [place]. She states she has been having epigastric abdominal pain for approximately 1-2 years with nausea off and on. She states yesterday the pain became unbearable. She has had nausea, vomiting, and diarrhea. She presented to the emergency room for further evaluation and treatment. She had a CT of the abdomen and pelvis showing cholelithiasis. Her white blood cell count was elevated and her UA reve aled a urinary tract infection. Blood and urine cultures were ordered and she was started on ertapenem and admitted for further evaluation and treatment. This a.m. she states she is feeling worse. Her pain is no better and she states she has been vomiting off and on all night even with antiemetics. <Roshni Lee 09/12/19 08:56> [facility] History I have reviewed the patient's past medical history: Yes <Roshni Lee 09/12/19 08:56> Medical History: Reports:: Anxiety, Nephritis Denies:: Cancer, Depression, Diabetes Mellitus Type 1, Diabetes Mellitus Type 2, Hyperlipidemia, Hypertension, Migraine, MRSA, Seizures <Roshni Lee 09/12/19 08:56> *Have you ever received a pneumonia vaccine?: No <Roshni Lee 09/12/19 08:56> *Have you received a flu vaccine this season?: No <Roshni Lee 09/12/19 08:56> Other Medical History: Denies: Blood Transfusion Reaction <Roshni Lee 09/12/19 08:56> Other Surgeries: Yes: , Dilation and Curettage, Other <Roshni Lee 09/12/19 08:56> Amputation: No <Roshni Lee 09/12/19 08:56> Fractures: No <Roshni Lee 09/12/19 08:56> - *Social History Educational Level: Attended High School <Roshni Lee 09/12/19 08:56> Smoking Status: Current every day smoker <Roshni Lee 09/12/19 08:56> Tobacco Type: cigarettes <Roshni Lee 09/12/19 08:56> # Packs/Day (cigarettes): 1 <Roshni Lee 09/12/19 08:56> Alcohol Intake: never <Roshni Lee 09/12/19 08:56> Substance Use Type: denies use <Roshni Lee 09/12/19 08:56> *Occupational Status:: unemployed <Roshni Lee 09/12/19 08:56> Housing: house <Roshni Lee 09/12/19 08:56> Household Members: significant other <Roshni Lee 09/12/19 08:56> *Travel in the last 8 weeks: None <Roshni Lee 09/12/19 08:56> - Psychiatric History Pschychiatric History:: Reports:: Anxiety Denies:: Depression <Roshni Lee 09/12/19 08:56> Family Hx:: Cancer, Stroke <Roshni Lee 09/12/19 08:56> UPWARD BOUND DIRECTOR history: Spontaneous <Roshni Lee 09/12/19 08:56> Review of Systems - Constitutional Reports weakness, Denies chills, Denies fever(s) <Roshni Lee 09/12/19 08:56> - Eyes Denies blurry vision, Denies double vision <Roshni Lee 09/12/19 08:56> - ENT Denies nasal congestion, Denies sore throat <Roshni Lee 09/12/19 08:56> - *Cardiovascular Denies chest pain, Denies shortness of breath <Roshni Lee 09/12/19 08:56> - *Respiratory Denies chest congestion, Denies cough <Roshni Lee 09/12/19 08:56> - *Gastrointestinal Reports abdominal pain, Reports loose stools, Reports nausea, Reports vomiting <Roshni Lee 09/12/19 08:56> - *Genitourinary Denies difficulty urinating, Denies painful urination, Denies blood in urine <Roshni Lee 09/12/19 08:56> - *Musculoskeletal Reports back pain <Roshni Lee - 09/12/19 08:56> - *Neurologic Reports weakness, Denies headache(s), Denies dizziness <Roshni Lee - 09/12/19 08:56> Meds Home Medications Medication Instructions Recorded Confirmed Type No Known Home Medications 09/12/19 09/12/19 History <Kathy Paredes - 09/12/19 09:18> Allergies Allergy/AdvReac Type Severity Reaction Status Date / Time morphine [MORPHINE] Allergy Unknown Verified 09/01/18 13:59 oxycodone [From PERCOCET] Allergy Unknown Verified 09/01/18 13:59 <Kathy Paredes - 09/12/19 09:18> Exam Vital signs and Labs for Last 24 Hours: Temp Pulse Resp BP Pulse Ox 99.7 F H 97 H 18 109/74 L 97 09/12/19 08:00 09/12/19 08:00 09/12/19 08:00 09/12/19 08:00 09/12/19 08:00 Laboratory Results - last 24 hr 09/11/19 23:20: Urine Color Yellow, Urine Appearance Clear, Urine pH 6.0, Ur Specific [place] 1.025, Urine Protein Negative, Urine Glucose (UA) Negative, Urine Ketones Negative, Urine Blood Negative, Urine Nitrate Negative, Urine Nestor irubin Negative, Urine Urobilinogen 0.2, Ur Leukocyte Esterase 1+ A, Urine WBC 20-50, Ur Squamous Epith Cells 10-20 09/11/19 23:20: WBC 20.5 H*, RBC 5.40, Hgb 16.0, Hct 50.9 H, MCV 94.3, MCH 29.6, MCHC 31.4 L, RDW 13.5, Plt Count 313, MPV 7.8, Neut % (Auto) 82.3 H, Lymph % ( Auto) 10.6, [place] % (Auto) 4.2, Eos % (Auto) 2.6, Baso % (Auto) 0.3, Neut # (Auto) 16.9 H, Lymph # (Auto) 2.2, [place] # (Auto) 0.9, Eos # (Auto) 0.5 H, Baso # (Auto) 0.1, Total Counted 100, Neutrophils % (Manual) 80 H, Band Neutrophils % 8.0, Lymphocytes % (Manual) 6 L, Monocytes % (Manual) 1 L, Eosinophils % (Manual) 5 H, Platelet Estimate Normal, RBC Morphology Normal, ESR 4 09/11/19 23:20: Sodium 138, Potassium 3.7, Chloride 102, Carbon Dioxide 26, Anion Gap 13.7, BUN 12, Creatinine 0.81, Estimated Creat Clear 76, Estimated GFR 86, Est GFR ( Amer) 104, Glucose 117 H, Calcium 8.7, Total Bilirubin 0.6, AST 15, ALT 15, Alkaline Phosphatase 59, C-Reactive Protein < 0.2, Total Protein 8.2, Albumin 4.3, Globulin 3.9 H, Albumin/Globulin Ratio 1.1, Amylase 51 09/11/19 23:20: Lipase 126 09/11/19 23:59: Lactate 0.8 09/12/19 06:35: WBC 13.4 H D, RBC 4.30, Hgb 13.2 D, Hct 40.9, MCV 95.0, MCH 30.4, MCHC 31.9, RDW 13.5, Plt Count 233 D, MPV 7.7, Neut % (Auto) 87.7 H, Lymph % (Auto) 5.9 L, [place] % (Auto) 3.6, Eos % (Auto) 2.6, Baso % (Auto) 0.2, Neut # (Auto) 11.7 H, Lymph # (Auto) 0.8, [place] # (Auto) 0.5, Eos # (Auto) 0.4, Baso # (Auto) 0.0 09/12/19 06:35: Sodium 141, Potassium 3.8, Chloride 109 H, Carbon Dioxide 27, Anion Gap 8.8, BUN 15, Creatinine 0.77, Estimated Creat Clear 85, Estimated GFR 91, Est GFR ( Amer) 111, Glucose 103, Calcium 7.5 L D <Kathy Paredes - 09/12/19 09:18> Temp Pulse Resp BP Pulse Ox 98.4 F 84 18 133/69 98 09/12/19 03:47 09/12/19 03:47 09/12/19 03:47 09/12/19 03:47 09/12/19 07:27 Laboratory Results - last 24 hr 09/11/19 23:20: Urine Color Yellow, Urine Appearance Clear, Urine pH 6.0, Ur Specific [place] 1.025, Urine Protein Negative, Urine Glucose (UA) Negative, Urine Ketones Negative, Urine Blood Negative, Urine Nitrate Negative, Urine Bilirubin Negative, Urine Urobilinogen 0.2, Ur Leukocyte Esterase 1+ A, Urine WBC 20-50, Ur Squamous Epith Cells 10-20 09/11/19 23:20: WBC 20.5 H*, RBC 5.40, Hgb 16.0, Hct 50.9 H, MCV 94.3, MCH 29.6, MCHC 31.4 L, RDW 13.5, Plt Count 313, MPV 7.8, Neut % (Auto) 82.3 H, Lymph % (Auto) 10.6, [place] % (Auto) 4.2, Eos % (Auto) 2.6, Baso % (Auto) 0.3, Neut # (Auto) 16.9 H, Lymph # (Auto) 2.2, [place] # (Auto) 0.9, Eos # (Auto) 0.5 H, Baso # (Auto) 0.1, Total Counted 100, Neutrophils % (Manual) 80 H, Band Neutrophils % 8.0, Lymphocytes % (Manual) 6 L, Monocytes % (Manual) 1 L, Eosinophils % (Manual) 5 H, Platelet Estimate Normal, RBC Morphology Normal, ESR 4 09/11/19 23:20: Sodium 138, Potassium 3.7, Chloride 102, Carbon Dioxide 26, Anion Gap 13.7, BUN 12, Creatinine 0.81, Estimated Creat Clear 76, Estimated GFR 86, Est GFR ( Amer) 104, Glucose 117 H, Calcium 8.7, Total Bilirubin 0.6, AST 15, ALT 15, Alkaline Phosphatase 59, C-Reactive Protein < 0.2, Total Protein 8.2, Albumin 4.3, Globulin 3.9 H, Albumin/Globulin Ratio 1.1, Amylase 51 09/11/19 23:20: Lipase 126 09/11/19 23:59: Lactate 0.8 09/12/19 06:35: WBC 13.4 H D, RBC 4.30, Hgb 13.2 D, Hct 40.9, MCV 95.0, MCH 30.4, MCHC 31.9, RDW 13.5, Plt Count 233 D, MPV 7.7, Neut % (Auto) 87.7 H, Lymph % (Auto) 5.9 L, [place] % (Auto) 3.6, Eos % (Auto) 2.6, Baso % (Auto) 0.2, Neut # (Auto) 11.7 H, Lymph # (Auto) 0.8, [place] # (Auto) 0.5, Eos # (Auto) 0.4, Baso # (Auto) 0.0 09/12/19 06:35: Sodium 141, Potassium 3.8, Chloride 109 H, Carbon Dioxide 27, Anion Gap 8.8, BUN 15, Creatinine 0.77, Estimated Creat Clear 85, Estimated GFR 91, Est GFR ( Amer) 111, Glucose 103, Calcium 7.5 L D <Roshni Lee 09/12/19 08:56> I & O for Last 24 hours: Intake & Output 09/09/19 09/10/19 09/11/19 09/12/19 11:59 11:59 11:59 11:59 Intake Total 1352 / 1352 Balance 1352 / 1352 Weight 106 lb 9 oz <Kathy Paredes 09/12/19 09:18> Intake & Output 09/09/19 09/10/19 09/11/19 09/12/19 11:59 11:59 11:59 11:59 Intake Total 1352 / 1352 Balance 1352 / 1352 Weight 106 lb 9 oz <Roshni Lee 09/12/19 08:56> - Constitutional Comments: Does not appear to feel well <Roshni Lee 09/12/19 08:56> - *Routine HEENT Exam Head: Present: normocephalic <Roshni Lee 09/12/19 08:56> Eye: Present: EOMI, PERRL <Roshni Lee 09/12/19 08:56> ENT: Present: mucous membranes dry <Roshni Lee 09/12/19 08:56> - *Routine Neck Exam Present: supple. Absent: lymphadenopathy <Roshni Lee 09/12/19 08:56> - *Routine Respiratory Exam Present: CTA bilaterally <Roshni Lee 09/12/19 08:56> - *Routine Cardiovascular Exam Present: RRR <Roshni Lee 09/12/19 08:56> - *Routine Abdominal Exam Present: soft, normoactive bowel sounds, tenderness (epigastric area and RUQ, there is also ttp in the suprapubic area) <Roshni Lee 09/12/19 08:56> - *Routine Extremities Exam Absent: cyanosis, clubbing, edema <Roshni Lee 09/12/19 08:56> - *Routine Skin Exam Present: warm. Absent: rash <Roshni Lee 09/12/19 08:56> - *Routine Neurological Exam Present: alert, oriented X3 <Roshni Lee 09/12/19 08:56> H&P: Result - Impressions Abd/pelvic CT Small gallstone is present. Multiple unopacified bowel loops in the abdomen or pelvis which could obscure or mimic pathology. If symptoms persist, consider repeat exam with IV and oral contrast. <Roshni Lee 09/12/19 08:56> Assessment and Plan (1) Cholelithiasis Current visit: Yes Status: Acute Qualifiers: Cholelithiasis location: gallbladder Cholecystitis presence: without cholecystitis Biliary obstruction: without biliary obstruction Qualified Code(s): K80.20 - Calculus of gallbladder without cholecystitis without obstruction Category: Medical Code(s): K80.20 - Calculus of gallbladder without cholecys titis without obstruction (2) SIRS (systemic inflammatory response syndrome) Current visit: Yes Status: Acute Category: Medical Code(s): R65.10 - Systemic inflammatory response syndrome (SIRS) of non-infectious origin without acute organ dysfunction (3) UTI (urinary tract infection) Current visit: Yes Status: Acute Qualifiers: Urinary tract infection type: site unspecified Hematuria presence: without hematuria Qualified Code(s): N39.0 - Urinary tract infection, site not specified Category: Medical Code(s): N39.0 - Urinary tract infection, site not specified <Roshni Lee 09/12/19 08:45> (1) Cholelithiasis Current visit: Yes Status: Acute Qualifiers: Cholelithiasis location: gallbladder Cholecystitis presence: without cholecystitis Biliary obstruction: without biliary obstruction Qualified Code(s): K80.20 - Calculus of gallbladder without cholecystitis without obstruction Category: Medical Code(s): K80.20 - Calculus of gallbladder without cholecystitis without obstruction (2) SIRS (systemic inflammatory response syndrome) Current visit: Yes Status: Acute Category: Medical Code(s): R65.10 - Systemic inflammatory response syndrome (SIRS) of non-infectious origin without acute organ dysfunction (3) UTI (urinary tract infection) Current visit: Yes Status: Acute Qualifiers: Urinary tract infection type: site unspecified Hematuria presence: without hematuria Qualified Code(s): N39.0 - Urinary tract infection, site not specified Category: Medical Code(s): N39.0 - Urinary tract infection, site not specified <Kathy Paredes - 09/12/19 09:18> - Assessment and plan all Dx Assessment and Plan for all problems:: will get US of RUQ to rule out gallstones and obstruction; will get surgery consult and see if she will benefit from surgical intervention at this point. continue IV pain and nausea control. <Kathy Paredes - 09/12/19 09:18> Patient has been started on pain medication, IV antibiotics, and antiemetics. Will likely need a right upper quadrant ultrasound. Will discuss further care with Dr. Paredes. <Roshni Lee - 09/12/19 08:56>
--- NOTE | 2019-09-12 09:15 | Pharmacy Consult Notes ---
[facility] Pharmacy VTE Monitoring - Patient Demographics Admission date: 09/12/19 Report Date: 09/12/19 Time: 09:15 Allergies/Adverse Reactions: Patient Allergies morphine [MORPHINE] Allergy (Unknown, Verified 09/01/18 13:59) oxycodone [From PERCOCET] Allergy (Unknown, Verified 09/01/18 13:59) Height: 1.6 m Weight: 48.336 kg Patient Problems: Current Active Problems UTI (urinary tract infection) (Acute) SIRS (systemic inflammatory response syndrome) (Acute) Cholelithiasis (Acute) - VTE Risk Labs: VTE Related Lab Results Hgb 13.2 g/dL (12.2-16.2) D 09/12/19 06:35 Hct 40.9 % (37.0-47.0) 09/12/19 06:35 Plt Count 233 K/mm3 (142-424) D 09/12/19 06:35 BUN 15 mg/dL (7-18) 09/12/19 06:35 Creatinine 0.77 mg/dL (0.55-1.02) 09/12/19 06:35 Estimated Creat Clear 85 mL/min (50-200) 09/12/19 06:35 VTE Score: 0 - Prophylaxis Types of VTE Prophylaxis: TEDS Knee High (ERICKA HOSE ORDER PLACED) Location of Applied Device: Bilateral Lower Extremeties
--- NOTE | 2019-09-12 10:53 | Consult Report ---
*Admission Date: 09/12/19 *Reason for consult:: Abdominal pain, nausea, possible gallbladder disease *History of present illness: This is a 24-year-old female seen in consultation from Dr. Paredes for evaluation regarding possible gallbladder disease. She presented with increasing pain in the upper abdomen and suprapubic region with some associated nausea, vomiting, and intermittent diarrhea. She states that over the past few days her symptoms have "gotten worse". No hematemesis. No melena. No bright red blood per rectum. No jaundice. No definitive fevers. She states that she has had intermittent left upper quadrant pain over the past few years and has undergone an esophagogastroduodenoscopy at an outside facility that reportedly "showed nothing". Her pain in the left upper quadrant and epigastric region over the past few years has apparently "been worse with greasy food". A CT scan showed no significant abnormality. The possibility of a small gallstone with no definitive inflammatory changes was noted. Follow-up ultrasound has been completed and final results are pending; upper, an d apparent small polyp with no definitive sign of cholecystitis was noted. Some scant sludge was apparent. Review of Systems - Constitutional Denies fever(s), Denies headache(s) - Eyes Denies change in vision - ENT Denies difficulty swallowing - *Cardiovascular Denies chest pain - *Respiratory Denies cough - *Gastrointestinal Reports abdominal pain, Reports loose stools, Reports nausea, Reports vomiting, Denies bright, red blood in stools, Denies black, tarry stools - *Genitourinary Denies blood in urine - *Musculoskeletal Denies deformity - Integumentary/Breasts Denies lesions - *Neurologic Reports weakness, Denies headache(s), Denies dizziness - Psychiatric Denies anxiety - Endocrine Denies cold intolerance - Hematologic/Lymphatic Denies easy bruising - Allergic/Immunologic Reports GI upset with certain foods [facility] History Medical History: Reports:: Anxiety, Nephritis Denies:: Cancer, Depression, Diabetes Mellitus Type 1, Diabetes Mellitus Type 2, Hyperlipidemia, Hypertension, Migraine, MRSA, Seizures *Have you ever received a pneumonia vaccine?: No *Have you received a flu vaccine this season?: No Other Medical History: Denies: Blood Transfusion Reaction Other Surgeries: Yes: , Dilation and Curettage, Other Amputation: No Fractures: No - *Social History Educational Level: Attended High School Smoking Status: Current every day smoker Tobacco Type: cigarettes # Packs/Day (cigarettes): 1 Alcohol Intake: never Substance Use Type: denies use *Occupational Status:: unemployed Housing: house Household Members: significant other *Travel in the last 8 weeks: None - Psychiatric History Pschychiatric History:: Reports:: Anxiety Denies:: Depression Family Hx:: Cancer, Stroke [employer] history: Spontaneous Meds Home Medications Medication Instructions Recorded Confirmed Type No Known Home Medications 09/12/19 09/12/19 History Allergies Allergy/AdvReac Type Severity Reaction Status Date / Time morphine [MORPHINE] Allergy Unknown Verified 09/01/18 13:59 oxycodone [From PERCOCET] Allergy Unknown Verified 09/01/18 13:59 Exam Vital signs and Labs for Last 24 Hours: Temp Pulse Resp BP Pulse Ox 99.7 F H 97 H 18 109/74 L 97 09/12/19 08:00 09/12/19 08:00 09/12/19 08:00 09/12/19 08:00 09/12/19 08:00 Laboratory Results - last 24 hr 09/11/19 23:20: Urine Color Yellow, Urine Appearance Clear, Urine pH 6.0, Ur Specific [place] 1.025, Urine Protein Negative, Urine Glucose (UA) Negative, Urine Ketones Negative, Urine Blood Negative, Urine Nitrate Negative, Urine Bilirubin Negative, Urine Urobilinogen 0.2, Ur Leukocyte Esterase 1+ A, Urine WBC 20-50, Ur Squamous Epith Cells 10-20 09/11/19 23:20: WBC 20.5 H*, RBC 5.40, Hgb 16.0, Hct 50.9 H, MCV 94.3, MCH 29.6, MCHC 31.4 L, RDW 13.5, Plt Count 313, MPV 7.8, Neut % (Auto) 82.3 H, Lymph % (Auto) 10.6, [place] % (Auto) 4.2, Eos % (Auto) 2.6, Baso % (Auto) 0.3, Neut # (Auto) 16.9 H, Lymph # (Auto) 2.2, [place] # (Auto) 0.9, Eos # (Auto) 0.5 H, Baso # (Auto) 0.1, Total Counted 100, Neutrophils % (Manual) 80 H, Band Neutrophils % 8.0, Lymphocytes % (Manual) 6 L, Monocytes % (Manual) 1 L, Eosinophils % (Manual) 5 H, Platelet Estimate Normal, RBC Morphology Normal, ESR 4 09/11/19 23:20: Sodium 138, Potassium 3.7, Chloride 102, Carbon Dioxide 26, Anion Gap 13.7, BUN 12, Creatinine 0.81, Estimated Creat Clear 76, Estimated GFR 86, Est GFR ( Amer) 104, Glucose 117 H, Calcium 8.7, Total Bilirubin 0.6, AST 15, ALT 15, Alkaline Phosphatase 59, C-Reactive Protein < 0.2, Total Protein 8.2, Albumin 4.3, Globulin 3.9 H, Albumin/Globulin Ratio 1.1, Amylase 51 09/11/19 23:20: Lipase 126 09/11/19 23:59: Lactate 0.8 09/12/19 06:35: WBC 13.4 H D, RBC 4.30, Hgb 13.2 D, Hct 40.9, MCV 95.0, MCH 30.4, MCHC 31.9, RDW 13.5, Plt Count 233 D, MPV 7.7, Neut % (Auto) 87.7 H, Lymph % (Auto) 5.9 L, [place] % (Auto) 3.6, Eos % (Auto) 2.6, Baso % (Auto) 0.2, Neut # (Auto) 11.7 H, Lymph # (Auto) 0.8, [place] # (Auto) 0.5, Eos # (Auto) 0.4, Baso # (Auto) 0.0 09/12/19 06:35: Sodium 141, Potassium 3.8, Chloride 109 H, Carbon Dioxide 27, Anion Gap 8.8, BUN 15, Creatinine 0.77, Estimated Creat Clear 85, Estimated GFR 91, Est GFR ( Amer) 111, Glucose 103, Calcium 7.5 L D I & O for Last 24 hours: Intake & Output 09/09/19 09/10/19 09/11/19 09/12/19 11:59 11:59 11:59 11:59 Intake Total 1352 / 1352 Balance 1352 / 1352 Weight 106 lb 9 oz - Constitutional no acute distress - *Routine Respiratory Exam Absent: respiratory distress - *Routine Cardiovascular Exam Present: RRR - *Routine Abdominal Exam Present: soft, tenderness Comments: Tenderness in epigastric region and bilateral lower quadrants. Currently she is somewhat more tender in the right upper quadrant but states that she is "normally worse on the left". She also has suprapubic tenderness. No significant rebound or guarding. Results - Labs 09/12/19 06:35 09/12/19 06:35 Laboratory Results - last 24 hr 09/11/19 23:20: Urine Color Yellow, Urine Appearance Clear, Urine pH 6.0, Ur Specific [place] 1.025, Urine Protein Negative, Urine Glucose (UA) Negative, Urine Ketones Negative, Urine Blood Negative, Urine Nitrate Negative, Urine Bilirubin Negative, Urine Urobilinogen 0.2, Ur Leukocyte Esterase 1+ A, Urine WBC 20-50, Ur Squamous Epith Cells 10-20 09/11/19 23:20: WBC 20.5 H*, RBC 5.40, Hgb 16.0, Hct 50.9 H, MCV 94.3, MCH 29.6, MCHC 31.4 L, RDW 13.5, Plt Count 313, MPV 7.8, Neut % (Auto) 82.3 H, Lymph % (Auto) 10.6, [place] % (Auto) 4.2, Eos % (Auto) 2.6, Baso % (Auto) 0.3, Neut # (Auto) 16.9 H, Lymph # (Auto) 2.2, [place] # (Auto) 0.9, Eos # (Auto) 0.5 H, Baso # (Auto) 0.1, Total Counted 100, Neutrophils % (Manual) 80 H, Band Neutrophils % 8.0, Lymphocytes % (Manual) 6 L, Monocytes % (Manual) 1 L, Eosinophils % (Manual) 5 H, Platelet Estimate Normal, RBC Morphology Normal, ESR 4 09/11/19 23:20: Sodium 138, Potassium 3.7, Chloride 102, Carbon Dioxide 26, Anion Gap 13.7, BUN 12, Creatinine 0.81, Estimated Creat Clear 76, Estimated GFR 86, Est GFR ( Amer) 104, Glucose 117 H, Calcium 8.7, Total Bilirubin 0.6, AST 15, ALT 15, Alkaline Phosphatase 59, C-Reactive Protein < 0.2, Total Protein 8.2, Albumin 4.3, Globulin 3.9 H, Albumin/Globulin Ratio 1.1, Amylase 51 09/11/19 23:20: Lipase 126 09/11/19 23:59: Lactate 0.8 09/12/19 06:35: WBC 13.4 H D, RBC 4.30, Hgb 13.2 D, Hct 40.9, MCV 95.0, MCH 30.4, MCHC 31.9, RDW 13.5, Plt Count 233 D, MPV 7.7, Neut % (Auto) 87.7 H, Lymph % (Auto) 5.9 L, [place] % (Auto) 3.6, Eos % (Auto) 2.6, Baso % (Auto) 0.2, Neut # (Auto) 11.7 H, Lymph # (Auto) 0.8, [place] # (Auto) 0.5, Eos # (Auto) 0.4, Baso # (Auto) 0.0 09/12/19 06:35: Sodium 141, Potassium 3.8, Chloride 109 H, Carbon Dioxide 27, Anion Gap 8.8, BUN 15, Creatinine 0.77, Estimated Creat Clear 85, Estimated GFR 91, Est GFR ( Amer) 111, Glucose 103, Calcium 7.5 L D Assessment and Plan (1) Cholelithiasis Current visit: Yes Status: Acute Qualifiers: Cholelithiasis location: gallbladder Cholecystitis presence: without cholecystitis Biliary obstruction: without biliary obstruction Qualified Code(s): K80.20 - Calculus of gallbladder without cholecystitis without obstruction Category: Medical Code(s): K80.20 - Calculus of gallbladder without cholecystitis without obstruction (2) SIRS (systemic inflammatory response syndrome) Current visit: Yes Status: Acute Category: Medical Code(s): R65.10 - Systemic inflammatory response syndrome (SIRS) of non-infectious origin without acute organ dysfunction (3) UTI (urinary tract infection) Current visit: Yes Status: Acute Qualifiers: Urinary tract infection type: site unspecified Hematuria presence: without hematuria Qualified Code(s): N39.0 - Urinary tract infection, site not specified Category: Medical Code(s): N39.0 - Urinary tract infection, site not specified (4) Upper abdominal pain Current visit: Yes Status: Acute Category: Medical Code(s): R10.10 - Upper abdominal pain, unspecified Possibly secondary to gastroenteritis, irritable bowel syndrome, peptic ulcer disease, biliary disease, or other etiology. She has no definitive sign of c holecystitis. She does apparently have a small gallbladder polyp and some scant sludge noted on ultrasound. Seemingly, her leukocytosis is not secondary to biliary disease as she has no radiographic evidence of cholecystitis. Her chronic abdominal pain is not consistent with biliary disease in terms of location; however, it is somewhat consistent with biliary disease with regard to quality and exacerbating events. Serial abdominal exams Follow-up repeat labs Diarrhea panel Urgent cholecystectomy not required; however, discussion with regard to elective cholecystectomy will be ongoing She has undergone esophagogastroduodenoscopy fairly recently; however, discussion with regard to repeat endoscopic evaluation will be ongoing ? GI consultation for evaluation of non-surgical chronic abdominal pain (5) Gallbladder polyp Current visit: Yes Status: Acute Category: Medical Code(s): K82.4 - Cholesterolosis of gallbladder
[2019-09-13 08:28] LABS: Basophils % 0.7 % (0.1-2.0); Eosinophils # 0.2 K/mm3 (0.0-0.4); Hematocrit 36.5 % (37.0-47.0); Hemoglobin 11.5 g/dL (12.2-16.2); Lymphocytes # 1.1 K/mm3 (0.7-4.5); Lymphocytes % 37.1 % (10-50); Mean Corpuscular HGB Conc 31.5 g/dL (31.8-35.4); Mean Corpuscular Volume 95.9 fl (81-99); Mean Platelet Volume 8.5 fl (7.4-10.4); Monocytes # 0.3 K/mm3 (0.1-1.0); Monocytes % 10.7 % (1.7-9.3); Neutrophils # 1.4 K/mm3 (1.8-7.8); Neutrophils % 44.4 % (37.0-80.0); Platelet Count 192 K/mm3 (142-424); Red Cell Distribution Width 13.4 % (11.5-17.5)
--- NOTE | 2019-09-13 09:50 | Progress Note ---
Subjective Patient reports: feels better, still having pain (She states that her pain is "more like the old pain". She wishes to be discharged with outpatient follow- up.) Exam Vital signs and Labs for Last 24 Hours: Temp Pulse Resp BP Pulse Ox 98.7 F 60 16 96/53 L 99 09/13/19 08:00 09/13/19 08:00 09/13/19 08:00 09/13/19 08:00 09/13/19 08:00 Laboratory Results - last 24 hr 09/13/19 08:05: WBC 3.0 L D, RBC 3.80 L, Hgb 11.5 L, Hct 36.5 L, MCV 95.9, MCH 30.2, MCHC 31.5 L, RDW 13.4, Plt Count 192, MPV 8.5, Neut % (Auto) 44.4, Lymph % (Auto) 37.1, [place] % (Auto) 10.7 H, Eos % (Auto) 7.0, Baso % (Auto) 0.7, Neut # (Auto) 1.4 L, Lymph # (Auto) 1.1, [place] # (Auto) 0.3, Eos # (Auto) 0.2, Baso # (Auto) 0.0 I & O for Last 24 hours: Intake & Output 09/10/19 09/11/19 09/12/19 09/13/19 11:59 11:59 11:59 10:59 Intake Total 1352 / 1352 3076 / 3076 Balance 1352 / 1352 3076 / 3076 Weight 106 lb 9 oz Microbiology Reports for the Last 24 Hours: Microbiology 09/11/19 23:59 Blood Blood Culture - Preliminary 09/11/19 23:20 Urine,Random Urine Culture - Final Multiple organisms, suggests contamination. - Constitutional no acute distress - *Routine Respiratory Exam Absent: respiratory distress - *Routine Cardiovascular Exam Present: RRR - *Routine Abdominal Exam Present: soft, tenderness Comments: Overall, her tenderness has improved. She has less tenderness in the suprapubic region. Progress Note: A&P (1) SIRS (systemic inflammatory response syndrome) Status: Acute Current Visit: Yes (2) UTI (urinary tract infection) Status: Acute Current Visit: Yes (3) Upper abdominal pain Status: Acute Assessment and plan: Overall, improving "back to baseline". Okay from surgical standpoint for discharge home with close outpatient follow- up. Discussion with regard to possible cholecystectomy will be ongoing. Current Visit: Yes (4) Gallbladder polyp Status: Acute Current Visit: Yes
--- NOTE | 2019-09-13 10:50 | Progress Note ---
Internal Medicine - PN: Subj *Date: 09/13/19 *Time: 10:48 Interval history: Patient is doing slightly better today. She still has some pain in her abdominal region. She only needed 1 dose of Dilaudid yesterday. Nausea is much better today Exam Vital signs and Labs for Last 24 Hours: Temp Pulse Resp BP Pulse Ox 98.7 F 60 16 96/53 L 99 09/13/19 08:00 09/13/19 08:00 09/13/19 08:00 09/13/19 08:00 09/13/19 08:00 Laboratory Results - last 24 hr 09/13/19 08:05: WBC 3.0 L D, RBC 3.80 L, Hgb 11.5 L, Hct 36.5 L, MCV 95.9, MCH 3 0.2, MCHC 31.5 L, RDW 13.4, Plt Count 192, MPV 8.5, Neut % (Auto) 44.4, Lymph % (Auto) 37.1, [place] % (Auto) 10.7 H, Eos % (Auto) 7.0, Baso % (Auto) 0.7, Neut # (Auto) 1.4 L, Lymph # (Auto) 1.1, [place] # (Auto) 0.3, Eos # (Auto) 0.2, Baso # (Auto) 0.0 I & O for Last 24 hours: Intake & Output 09/10/19 09/11/19 09/12/19 09/13/19 11:59 11:59 11:59 10:59 Intake Total 1352 / 1352 3076 / 3076 Balance 1352 / 1352 3076 / 3076 Weight 106 lb 9 oz Microbiology Reports for the Last 24 Hours: Microbiology 09/11/19 23:59 Blood Blood Culture - Preliminary 09/11/19 23:20 Urine,Random Urine Culture - Final Multiple organisms, suggests contamination. - *Routine HEENT Exam Head: Present: normocephalic Eye: Present: EOMI, PERRL ENT: Present: mucous membranes moist - *Routine Neck Exam Present: supple. Absent: lymphadenopathy - *Routine Respiratory Exam Present: CTA bilaterally - *Routine Cardiovascular Exam Present: RRR - *Routine Abdominal Exam Present: soft, normoactive bowel sounds, tenderness (Diffuse). Absent: distended - *Routine Extremities Exam Absent: cyanosis, clubbing, edema - *Routine Skin Exam Present: warm. Absent: rash - *Routine Neurological Exam Present: alert, oriented X3 Assessment and Plan (1) Bacteremia Current visit: Yes Status: Acute Category: Medical Code(s): R78.81 - Bacteremia (2) SIRS (systemic inflammatory response syndrome) Current visit: Yes Status: Acute Category: Medical Code(s): R65.10 - Systemic inflammatory response syndrome (SIRS) of non-infectious origin without acute organ dysfunction (3) Upper abdominal pain Current visit: Yes Status: Acute Category: Medical Code(s): R10.10 - Upper abdominal pain, unspecified (4) Gallbladder polyp Current visit: Yes Status: Acute Category: Medical Code(s): K82.4 - Cholesterolosis of gallbladder - Assessment and plan all Dx Assessment and Plan for all problems:: Per preliminary sensitivity report, will switch antibiotics to cefazolin. Advance diet as tolerated today. Repeat blood cultures today. Possible discharge tomorrow
--- NOTE | 2019-09-14 08:05 | Progress Note ---
Subjective Patient reports: no new complaints (Feels about the same. Continues to have what she describes as "the old pain".) Exam Vital signs and Labs for Last 24 Hours: Temp Pulse Resp BP Pulse Ox 98.9 F 68 16 100/62 L 98 09/14/19 04:15 09/14/19 04:15 09/14/19 04:15 09/14/19 04:15 09/14/19 04:15 Laboratory Results - last 24 hr 09/13/19 08:05: WBC 3.0 L D, RBC 3.80 L, Hgb 11.5 L, Hct 36.5 L, MCV 95.9, MCH 30.2, MCHC 31.5 L, RDW 13.4, Plt Count 192, MPV 8.5, Neut % (Auto) 44.4, Lymph % (Auto) 37.1, [place] % (Auto) 10.7 H, Eos % (Auto) 7.0, Baso % (Auto) 0.7, Neut # (Auto) 1.4 L, Lymph # (Auto) 1.1, [place] # (Auto) 0.3, Eos # (Auto) 0.2, Baso # (Auto) 0.0 I & O for Last 24 hours: Intake & Output 09/11/19 09/12/19 09/13/19 09/14/19 12:59 12:59 11:59 11:59 Intake Total 580 / 580 Balance 580 / 580 Weight 105 lb Microbiology Reports for the Last 24 Hours: Microbiology 09/11/19 23:59 Blood Blood Culture - Preliminary NO GROWTH AFTER 48 HOURS 09/11/19 23:59 Blood Blood Culture - Preliminary 09/11/19 23:20 Urine,Random Urine Culture - Final Multiple organisms, suggests contamination. - Constitutional no acute distress - *Routine Cardiovascular Exam Present: RRR - *Routine Abdominal Exam Present: soft Progress Note: A&P (1) Bacteremia Status: Acute Current Visit: Yes (2) SIRS (systemic inflammatory response syndrome) Status: Acute Current Visit: Yes (3) Upper abdominal pain Status: Acute Assessment and plan: Chronic/intermittent abdominal pain of undetermined etiology. Per patient report she is "back to the old pain". Although she does not require urgent surgical intervention, discussion with regard to possible cholecystectomy will be ongoing. The patient wishes to "talk about this more after (she) go(es) home". Current Visit: Yes (4) Gallbladder polyp Status: Acute Current Visit: Yes
--- NOTE | 2019-09-14 08:17 | Progress Note ---
<Thelma Watson - Last Filed: 09/14/19 08:13> Internal Medicine - PN: Subj *Date: 09/14/19 *Time: 08:13 Interval history: She continues to have discomfort which she is describes mostly as a fullness. She denies nausea. She has tried to eat but has the fullness discomfort. Her bowels have not moved. She is voiding QS. She wants to go home. Exam Vital signs and Labs for Last 24 Hours: Temp Pulse Resp BP Pulse Ox 98.9 F 68 16 100/62 L 98 09/14/19 04:15 09/14/19 04:15 09/14/19 04:15 09/14/19 04:15 09/14/19 04:15 Laboratory Results - last 24 hr 09/13/19 08:05: WBC 3.0 L D, RBC 3.80 L, Hgb 11.5 L, Hct 36.5 L, MCV 95.9, MCH 30.2, MCHC 31.5 L, RDW 13.4, Plt Count 192, MPV 8.5, Neut % (Auto) 44.4, Lymph % (Auto) 37.1, [place] % (Auto) 10.7 H, Eos % (Auto) 7.0, Baso % (Auto) 0.7, Neut # (Auto) 1.4 L, Lymph # (Auto) 1.1, [place] # (Auto) 0.3, Eos # (Auto) 0.2, Baso # (Auto) 0.0 I & O for Last 24 hours: Intake & Output 09/11/19 09/12/19 09/13/19 09/14/19 12:59 12:59 11:59 11:59 Intake Total 580 / 580 Balance 580 / 580 Weight 105 lb Microbiology Reports for the Last 24 Hours: Microbiology 09/11/19 23:59 Blood Blood Culture - Preliminary NO GROWTH AFTER 48 HOURS 09/11/19 23:59 Blood Blood Culture - Preliminary 09/11/19 23:20 Urine,Random Urine Culture - Final Multiple organisms, suggests contamination. - Constitutional no acute distress - *Routine Respiratory Exam Present: CTA bilaterally (Anteriorly and posteriorly) - *Routine Cardiovascular Exam Present: RRR - *Routine Abdominal Exam Present: soft, normoactive bowel sounds, tenderness (Mid abdomen) - *Routine Extremities Exam Absent: edema, calf tenderness - *Routine Neurological Exam Present: alert, oriented X3 Assessment and Plan (1) Bacteremia Current visit: Yes Status: Acute Category: Medical Code(s): R78.81 - Bacteremia (2) SIRS (systemic inflammatory response syndrome) Current visit: Yes Status: Acute Category: Medical Code(s): R65.10 - Systemic inflammatory response syndrome (SIRS) of non-infectious origin without acute organ dysfunction (3) Upper abdominal pain Current visit: Yes Status: Acute Category: Medical Code(s): R10.10 - Upper abdominal pain, unspecified (4) Gallbladder polyp Current visit: Yes Status: Acute Category: Medical Code(s): K82.4 - Cholesterolosis of gallbladder - Assessment and plan all Dx Assessment and Plan for all problems:: As per Dr. Barnett. Probably home today. Blood culture with bacterial ID pending. <Kathy Paredes - Last Filed: 09/14/19 09:25> Internal Medicine - PN: Subj *Date: 09/14/19 *Time: 09:24 Exam Vital signs and Labs for Last 24 Hours: Temp Pulse Resp BP Pulse Ox 98.5 F 61 18 114/71 99 09/14/19 08:00 09/14/19 08:00 09/14/19 08:00 09/14/19 08:00 09/14/19 08:00 I & O for Last 24 hours: Intake & Output 09/11/19 09/12/19 09/13/19 09/14/19 12:59 12:59 11:59 11:59 Intake Total 820 / 820 Balance 820 / 820 Weight 105 lb Microbiology Reports for the Last 24 Hours: Microbiology 09/11/19 23:59 Blood Blood Culture - Preliminary NO GROWTH AFTER 48 HOURS 09/11/19 23:59 Blood Blood Culture - Preliminary 09/11/19 23:20 Urine,Random Urine Culture - Final Multiple organisms, suggests contamination. Assessment and Plan (1) Bacteremia Current visit: Yes Status: Acute Category: Medical Code(s): R78.81 - Bacte remia (2) SIRS (systemic inflammatory response syndrome) Current visit: Yes Status: Acute Category: Medical Code(s): R65.10 - Systemic inflammatory response syndrome (SIRS) of non-infectious origin without acute organ dysfunction (3) Upper abdominal pain Current visit: Yes Status: Acute Category: Medical Code(s): R10.10 - Upper abdominal pain, unspecified (4) Gallbladder polyp Current visit: Yes Status: Acute Category: Medical Code(s): K82.4 - Cholesterolosis of gallbladder - Assessment and plan all Dx Assessment and Plan for all problems:: preliminary on one blood culture was negative, will discharge with keflex today and f/u outpatient for the cultures. Advised to f/u with Dr. Barnett for possible cholecystectomy after her infection is better.
[2019-09-14 09:11] VITALS: BP 114/71
--- NOTE | 2019-09-15 21:25 | Discharge Summary ---
General - General Admission date:: 09/12/19 Discharge date: 09/14/19 HPI HPI: Ms. Purvis is a 24-year-old female with no significant medical history. Her physician is at [place]. She states she has been having epigastric abdominal pain for approximately 1-2 years with nausea off and on. She states yesterday the pain became unbearable. She has had nausea, vomiting, and diarrhea. She presented to the emergency room for further evaluation and treatment. She had a CT of the abdomen and pelvis showing cholelithiasis. Her white blood cell count was elevated and her UA revealed a urinary tract infection. Blood and urine cultures were ordered and she was started on ertapenem and admitted for further evaluation and treatment. This a.m. she states she is feeling worse. Her pain is no better and she states she has been vomiting off and on all night even with antiemetics. Hospital Course Hospital Course: The patient's abdominal CT showed a gallstone but was otherwise negative. There were multiple unopacified bowel loops in the abdomen. A gallbladder ultrasound was ordered showing a distended gallbladder with small polyps versus nonshadowing adherent stones. Surgery was consulted. She was seen by Dr. Barnett. He felt she had no definitive sign of cholecystitis. He recommended serial abdominal exams and repeat labs as well as a diarrhea panel. She had had an EGD fairly recently. He felt GI may need to be consulted as well. The patient was also felt to have a urinary tract infection and was started on antibiotics. Her pain did improve. Dr. Barnett felt she could be discharged and may need a possible cholecystectomy if symptoms remain ongoing on an outpatient basis. Her nausea improved as well. Her urine culture came back with mixed organisms suggesting contamination. Her blood culture was positive for gram-positive cocci, therefore her antibiotics were switched to cefazolin. The patient wished to be discharged and was discharged on Keflex. She will follow-up outpatient for her preliminary positive blood cultures. She also will follow-up with Dr. Barnett for possible cholecystectomy. Objective Vital signs: Temp Pulse Resp BP Pulse Ox 98.5 F 61 18 114/71 99 09/14/19 08:00 09/14/19 08:00 09/14/19 08:00 09/14/19 08:00 09/14/19 08:00 Narrative: - Constitutional Comments: Does not appear to feel well - *Routine HEENT Exam Head: Present: normocephalic Eye: Present: EOMI, PERRL ENT: Present: mucous membranes dry - *Routine Neck Exam Present: supple. Absent: lymphadenopathy - *Routine Respiratory Exam Present: CTA bilaterally - *Routine Cardiovascular Exam Present: RRR - *Routine Abdominal Exam Present: soft, normoactive bowel sounds, tenderness (epigastric area and RUQ, there is also ttp in the suprapubic area) - *Routine Extremities Exam Absent: cyanosis, clubbing, edema - *Routine Skin Exam Present: warm. Absent: rash - *Routine Neurological Exam Present: alert, oriented X3 Results Labs on day of discharge: Preliminary micro results at discharge 09/11/19 23:59 Blood Culture - Preliminary Blood Gram Positive Cocci Gram Positive Cocci#2 09/13/19 12:00 Blood Culture - Preliminary Blood NO GROWTH AFTER 48 HOURS 09/13/19 11:50 Blood Culture - Preliminary Blood NO GROWTH AFTER 48 HOURS 09/11/19 23:59 Blood Culture - Preliminary Blood NO GROWTH AFTER 48 HOURS DS: Diagnosis - Discharge Diagnosis (1) Bacteremia Status: Acute (2) SIRS (systemic inflammatory response syndrome) Status: Acute (3) Upper abdominal pain Status: Acute (4) Gallbladder polyp Status: Acute Discharge Plan - Patient Discharge Instructions ACTIVITY: Ambulate as tolerated, Limited activity, No heavy lifting DIET: other (bland diet) Patient Instructions: DI for Gallstones, DI for Urinary Tract Infection (UTI), DI for Abdominal Pain-Adult, DI for Nausea -- Adult, Nausea and Vomiting-Adult - Follow up Plan Follow up with: Mark Barnett MD [Staff Physician] - 09/16/19 1:00 pm Unknown provider or service follow up:: 09/14/19 09:20 with her PCP in 2-3 days Disposition: Home, Self-Senior Living Medications: Home Medications Medication Instructions Recorded Confirmed Type Acetaminophen [Tylenol 500mg 500 mg PO BID 7 Days #14 tab 09/14/19 Rx tablet] Ondansetron HCl [Zofran 4mg Tab*] 4 mg PO TID PRN 7 Days #21 tab 09/14/19 Rx Promethazine HCl [Phenergan 12.5mg 12.5 mg PO Q8H PRN 5 Days #10 tab 09/14/19 Rx tablet] cephALEXin [Keflex 500mg Cap] 500 mg PO BID 7 Days #14 cap 09/14/19 Rx Prescriptions/Medication Reconciliation: New Promethazine HCl [Phenergan 12.5mg tablet] 12.5 mg PO Q8H PRN 5 Days #10 tab PRN Reason: Nausea Acetaminophen [Tylenol 500mg tablet] 500 mg PO BID 7 Days #14 tab Ondansetron HCl [Zofran 4mg Tab*] 4 mg PO TID PRN 7 Days #21 tab PRN Reason: Nausea cephALEXin [Keflex 500mg Cap] 500 mg PO BID 7 Days #14 cap - Problem Reconciliation Problems Reviewed?: Yes
== END 2019-09-14 09:55 | disposition home or self-care (01) | DRG 445 ==
LOC: 2ND 23:07 → ER 23:07 → 2ND 09-12 02:06
PROVIDERS: ADMIT Emergency Medicine; ATTEND Emergency Medicine
CPT/HCPCS: 74177; 76705; 80048; 80053; 81001; 82150; 83605; 83690; 85007; 85025; 85651; 86140; 87040; 87077; 87086; 87186; 96365; 96367; 96375; 99285; J1335; J2405; Q9967

== ENCOUNTER → 2019-09-21 12:32 | Outpatient (CLI) | payer MEDICAID, SELFPAY ==
[2019-09-21 15:09] LABS: HCG Qualitative, Serum Negative (Negative)
== END ==
PROVIDERS: Visit Provider Surgery
DX: K82.9 Disease of gallbladder, unspecified (principal)
CPT/HCPCS: 36415; 84703

== ENCOUNTER 2020-04-02 21:19 | Emergency (ER) | payer MEDICAID, SELFPAY ==
[2020-04-02 21:32] VITALS: BP 144/77; PULSE 98; RESP 14; TEMP 36.6; O2SAT 100; BMI 19.3
--- NOTE | 2020-04-02 21:41 | HMH.EDUPEXT ---
ED Disposition Clinical Impression: Sebaceous cyst Disposition: Home, Self-Care Condition on Discharge: Good Instructions: Epidermal Cyst Referrals: Thelma Blake [Primary Care Provider] - - Critical Care Critical Care Time: No Attestation: On 04/02/20, the high probability of a clinically significant, sudden or life threatening deterioration of the following system(s) required my full and direct attention, intervention and personal management. The time I documented below is in addition to time spent performing reported procedures but includes the following listed in this critical care notation. Medical Decision Making - Medical Records Medical records reviewed: Yes: I reviewed the patient's medical records. - Tej Inquiry Pt receiving controlled substance: No Vital Signs: 04/02/20 21:32 Temperature 97.9 F Temperature Source Oral Pulse Rate [Right Brachial] 98 H Respiratory Rate 14 Blood Pressure [Right Arm] 144/77 H Blood Pressure Mean [Right Arm] 99 Blood Pressure Source [Right Arm] Automatic Cuff Blood Pressure Position [Right Arm] Sitting 02 Sat by Pulse Oximetry 100 Oxygen Delivery Method Room Air - Lab Data Lab results reviewed: Yes: I reviewed the patient's lab results. Upper Extremity HPI - General Chief Complaint: Extremity Injury, Upper Stated Complaint: knot on R wrist/arm Time Seen by Provider: 04/02/20 21:19 Mode of Arrival: Ambulatory Source of Information: Patient Limitations: No Limitations Description of Symptoms (Recalled from ER Triage Doc. by RN): Patient reprots a knot that popped up on her right forearm a couple hours ago. - History of Present Illness HPI narrative: 24-year-old female presents the ED with a lesion on the anterior part of her right forearm. She states that is been present there for a couple of weeks and she is noticed it getting a little larger over the last few days. Patient denies any pain. Patient denies any erythema heat or swelling in the area. Patient also denies any subjective or objective fevers. Patient denies any other symptoms. - Related Data Home Medications Medication Instructions Recorded Confirmed No Known Home Medications 10/02/19 10/14/19 Previous Rx's Medication Instructions Recorded Hydrocod/Acet 5/325 mg [[place] 1 tab PO Q6HP PRN #23 tab 10/02/19 5/325mg tablet] Allergies Allergy/AdvReac Type Severity Reaction Status Date / Time morphine [MORPHINE] Allergy Unknown Verified 04/02/20 21:37 oxycodone [From PERCOCET] Allergy Unknown Verified 04/02/20 21:37 [facility] History - Hepatitis A Screen Drug use history?: No High risk sexual behaviors?: No History of sexually transmitted infection?: No Currently employed?: No Childcare worker?: No Do you have indoor plumbing?: Yes Do you have electricity?: Yes Attestation statement:: This patient has been screened for Hepatitis A risk factors. I have reviewed the patient's past medical history: Yes Medical History: Reports:: Anxiety, Nephritis Denies:: Cancer, Depression, Diabetes Mellitus Type 1, Diabetes Mellitus Type 2, Hyperlipidemia, Hypertension, Migraine, MRSA, Seizures Other Medical History: Denies: Blood Transfusion Reaction Other Surgeries: Yes: Cholecystectomy, , Dilation and Curettage, Other Amputation: No Fractures: No Comment: D&E 2013 - Social History Smoking Status: Current every day smoker Tobacco Type: cigarettes # Packs/Day (cigarettes): 1 Alcohol Intake: never Substance Use Type: denies use Occupational Status: employed Housing: house Household Members: significant other - Psychiatric History Pschychiatric History:: Reports:: Anxiety Denies:: Depression Family Hx:: Cancer, Stroke Comment: Children Alive. Father Alive. Mother Alive. 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 #6- Complications Jeb PAGAN Obtained: Con
[2020-04-02 21:52] VITALS: BP 144/77; PULSE 98; RESP 14; TEMP 36.6; O2SAT 100
== END 2020-04-02 21:55 | disposition home or self-care (01) ==
PROVIDERS: Emergency Provider Family Medicine; PCP Family Medicine
DX: L72.3 Sebaceous cyst (principal); Z88.5 Allergy status to narcotic agent; F17.210 Nicotine dependence, cigarettes, uncomplicated; Z90.49 Acquired absence of other specified parts of digestive tract
CPT/HCPCS: 99281

== ENCOUNTER → 2020-04-20 10:49 | Outpatient (CLI) | payer MEDICAID, SELFPAY ==
[2020-04-20 11:12] LABS: Basophils # 0.1 K/mm3 (0-0.2); Basophils % 0.9 % (0.1-2.0); Eosinophils # 0.5 K/mm3 (0.0-0.4); Hematocrit 46.4 % (37.0-47.0); Hemoglobin 15.5 g/dL (12.2-16.2); Lymphocytes # 1.9 K/mm3 (0.7-4.5); Lymphocytes % 24.2 % (10-50); Mean Corpuscular HGB Conc 33.3 g/dL (31.8-35.4); Mean Corpuscular Hemoglobin 32.2 pg (27.0-31.2); Mean Corpuscular Volume 96.8 fl (81-99); Mean Platelet Volume 7.8 fl (7.4-10.4); Monocytes # 0.5 K/mm3 (0.1-1.0); Monocytes % 6.7 % (1.7-9.3); Neutrophils # 4.9 K/mm3 (1.8-7.8); Neutrophils % 62.1 % (37.0-80.0); Platelet Count 255 K/mm3 (142-424); Red Cell Distribution Width 12.7 % (11.5-17.5); White Blood Count 7.9 K/mm3 (4.8-10.8)
[2020-04-20 11:54] LABS: Chloride 105 mmol/L (98-107); Potassium 4.7 mmoL/L (3.5-5.1); Sodium 139 mmol/L (136-145)
[2020-04-20 11:56] LABS: Amylase 51 U/L (30-110); Blood Urea Nitrogen 15 mg/dl (7-17); Estimated Glomerular Filt Rate 122 ml/min (>60); GFR (African American) 147 ML/MIN (>60)
[2020-04-20 11:57] LABS: Alanine Aminotransferase 11 U/L (12-78); Albumin Level 4.6 g/dl (3.5-5.0); Albumin/Globulin Ratio 1.6 (1.1-1.8); Alkaline Phosphatase 51 U/L (38-126); Anion Gap 12.7 mEq/L (5-15); Aspartate Amino Transferase 19 U/L (14-36); Bilirubin,Total 0.7 mg/dl (0.2-1.3); Calcium 9.6 mg/dl (8.4-10.2); Carbon Dioxide 26 mmol/L (22.0-30.0); Globulin 2.9 g/dL (1.3-3.2); Glucose 108 mg/dl (74-100); Lipase 75 U/L (23-300); Total Protein,Serum 7.5 g/dl (6.3-8.2)
== END ==
PROVIDERS: Visit Provider Surgery
DX: R10.11 Right upper quadrant pain (principal)
CPT/HCPCS: 36415; 80053; 82150; 83690; 85025

== ENCOUNTER 2020-06-05 00:14 | Emergency (ER) | payer MEDICAID, SELFPAY ==
[2020-06-05 00:21] VITALS: BMI 16.9
--- NOTE | 2020-06-05 00:21 | XR_ITS ---
PROCEDURE: XR SHOULDER RT MIN 2V CLINICAL INDICATION: pain after lifting COMPARISON: No exams were available for comparison FINDINGS: The clavicle is intact and the AC joint appears normal. The humeral head and glenoid are normal. There are no soft tissue calcifications. IMPRESSION: No acute findings. Dictated by: Dr. Michael Brunson MD 06/05/2020 07:[address] Michael Brunson MD in [place] 06/05/2020 07:48
[2020-06-05 00:22] VITALS: BP 121/76; PULSE 96; RESP 14; TEMP 37.1; O2SAT 96; BMI 18.0
--- NOTE | 2020-06-05 00:29 | HMH.EDUPEXT ---
ED Disposition Clinical Impression: Acute shoulder bursitis Qualifiers: Laterality: right Qualified Code(s): M75.51 - Bursitis of right shoulder Disposition: Home, Self-Care Condition on Discharge: Good Instructions: DI for Bursitis Additional Instructions: use meds and call pcp for follow up Prescriptions: predniSONE [Prednisone 20mg Tab] 20 mg PO BID #10 tab Transmission Status: Pending to [facility] Referrals: Bora Zhang APRN [Primary Care Provider] - - Critical Care Critical Care Time: No Attestation: On 06/05/20, the high probability of a clinically significant, sudden or life threatening deterioration of the following system(s) required my full and direct attention, intervention and personal management. The time I documented below is in addition to time spent performing reported procedures but includes the following listed in this critical care notation. Medical Decision Making - Medical Records Medical records reviewed: Yes: I reviewed the patient's medical records. - Tej Inquiry Pt receiving controlled substance: No Vital Signs: 06/05/20 00:22 Temperature 98.8 F Temperature Source Oral Pulse Rate [Right] 96 H Respiratory Rate 14 Blood Pressure [Right Arm] 121/76 Blood Pressure Mean [Right Arm] 91 Blood Pressure Source [Right Arm] Automatic Cuff Blood Pressure Position [Right Arm] Sitting 02 Sat by Pulse Oximetry 96 Oxygen Delivery Method Room Air Orders (Tests/Meds): ORDERS Category Date Time Status Shoulder XR right miminum 2 views [XR shoulder RT min Exams 06/05/20 00:21 Ordered 2V] Stat - Radiology Data #1 Image(s): Shoulder Image Reviewed: Yes I reviewed the patient's radiology image Preliminary Findings: No Fracture Seen Upper Extremity HPI - General Chief Complaint: Extremity Injury, Upper Stated Complaint: Pain in rt shoulder from lifting Time Seen by Provider: 06/05/20 00:30 Mode of Arrival: Ambulatory Source of Information: Patient, Medical Record Limitations: No Limitations Description of Symptoms (Recalled from ER Triage Doc. by RN): Pt states she was lifting a heavy object and now has pain in right shoulder and unable to lift arm above head - History of Present Illness HPI narrative: acute overuse injury to rt shoulder - MD complaint: injury to: right, shoulder Onset (ago): hour(s) Other Extremity Injury: Right: shoulder Other injuries: none Handedness: right Place: home Severity: moderate Context: other (lifting ) Associated symptoms: denies other symptoms - Related Data Previous Rx's Medication Instructions Recorded predniSONE [Prednisone 20mg 20 mg PO BID #10 tab 06/05/20 Tab] Allergies Allergy/AdvReac Type Severity Reaction Status Date / Time morphine [MORPHINE] Allergy Unknown Verified 04/20/20 10:29 oxycodone [From PERCOCET] Allergy Unknown Verified 04/20/20 10:29 [facility] History - Hepatitis A Screen Drug use history?: No High risk sexual behaviors?: No History of sexually transmitted infection?: No Currently employed?: No Childcare worker?: No Do you have indoor plumbing?: Yes Do you have electricity?: Yes Attestation statement:: This patient has been screened for Hepatitis A risk factors. I have reviewed the patient's past medical history: Yes Medical History: Reports:: Anxiety, Nephritis Denies:: Cancer, Depression, Diabetes Mellitus Type 1, Diabetes Mellitus Type 2, Hyperlipidemia, Hypertension, Migraine, MRSA, Seizures Other Medical History: Denies: Blood Transfusion Reaction Other Surgeries: Yes: Cholecystectomy, , Dilation and Curettage, Other Amputation: No Fractures: No Comment: D&E 2013 - Social History Smoking Status: Current every day smoker Tobacco Type: cigarettes # Packs/Day (cigarettes): 1 Alcohol Intake: never Substance Use Type: denies use Occupational Status: unemployed Housing: house Household Members: significant other - Psychiatric Histor
[2020-06-05 00:46] VITALS: BP 126/72; PULSE 82; RESP 14; TEMP 37.1; O2SAT 98
== END 2020-06-05 00:49 | disposition home or self-care (01) ==
PROVIDERS: Emergency Provider Emergency Medicine; PCP Nurse Practitioner
DX: M75.51 Bursitis of right shoulder (principal); X50.0XXA Overexertion from strenuous movement or load, initial encounter; F41.9 Anxiety disorder, unspecified; F17.210 Nicotine dependence, cigarettes, uncomplicated; Z90.49 Acquired absence of other specified parts of digestive tract
CPT/HCPCS: 73030; 99282

== ENCOUNTER → 2020-06-29 17:24 | Outpatient (CLI) | payer MEDICAID, SELFPAY ==
[2020-06-29 17:41] LABS: Basophils # 0.1 K/mm3 (0-0.2); Basophils % 1.3 % (0.1-2.0); Eosinophils # 0.7 K/mm3 (0.0-0.4); Eosinophils % 8.9 % (0.1-12.0); Hematocrit 49.8 % (37.0-47.0); Hemoglobin 16.8 g/dL (12.2-16.2); Lymphocytes # 2.2 K/mm3 (0.7-4.5); Lymphocytes % 28.7 % (10-50); Mean Corpuscular HGB Conc 33.6 g/dL (31.8-35.4); Mean Corpuscular Hemoglobin 32.3 pg (27.0-31.2); Mean Corpuscular Volume 96.1 fl (81-99); Mean Platelet Volume 7.9 fl (7.4-10.4); Monocytes # 0.5 K/mm3 (0.1-1.0); Monocytes % 6.6 % (1.7-9.3); Neutrophils # 4.1 K/mm3 (1.8-7.8); Neutrophils % 54.6 % (37.0-80.0); Platelet Count 297 K/mm3 (142-424); Red Blood Count 5.19 M/mm3 (4.20-5.40); White Blood Count 7.5 K/mm3 (4.8-10.8)
[2020-06-29 17:56] LABS: Chloride 103 mmol/L (98-107)
[2020-06-29 17:57] LABS: Sodium 140 mmol/L (136-145)
[2020-06-29 17:59] LABS: Alanine Aminotransferase 14 U/L (12-78); Alkaline Phosphatase 46 U/L (38-126); Aspartate Amino Transferase 27 U/L (14-36); Bilirubin,Total 0.8 mg/dl (0.2-1.3); Blood Urea Nitrogen 12 mg/dl (7-17); Estimated Glomerular Filt Rate 87 ml/min (>60); GFR (African American) 105 ML/MIN (>60)
[2020-06-29 18:00] LABS: Albumin Level 4.8 g/dl (3.5-5.0); Albumin/Globulin Ratio 1.5 (1.1-1.8); Calcium 9.9 mg/dl (8.4-10.2); Carbon Dioxide 27 mmol/L (22.0-30.0); Globulin 3.3 g/dL (1.3-3.2); Glucose 101 mg/dl (74-100); Total Protein,Serum 8.1 g/dl (6.3-8.2)
[2020-06-29 18:05] LABS: C-Reactive Protein 0.9 mg/L (0-4)
[2020-06-30 14:30] LABS: Coronavirus 19 IgG Antibody Negative (Negative); Coronavirus 19 IgM Antibody Negative (Negative)
[2020-07-01 14:13] LABS: Deamidated Gliadin Abs, IgA 4 units (0-19); Deamidated Gliadin Abs, IgG 5 units (0-19); Tissue Transglutaminase IgA Ab <2 U/mL (0-3); Tissue Transglutaminase IgG Ab 4 U/mL (0-5)
[2020-07-02 10:16] LABS: Endomysial IgA Antibody Negative (Negative)
[2020-07-03 15:09] LABS: Reticulin IgA Antibody Negative titer (Neg:<1:2.5)
[2020-07-05 22:58] LABS: Saccharomyces cerevisiae, IgA <20.0 Units (0.0-24.9); Saccharomyces cerevisiae, IgG <20.0 Units (0.0-24.9)
== END ==
PROVIDERS: Visit Provider Nurse Practitioner Family
DX: Z01.818 Encounter for other preprocedural examination (principal); Z12.11 Encounter for screening for malignant neoplasm of colon; R10.84 Generalized abdominal pain; R19.4 Change in bowel habit
CPT/HCPCS: 36415; 80053; 83516; 85025; 86140; 86255; 86256; 86328; 86671

== ENCOUNTER 2020-07-01 09:26 | Day surgery (SDC) | payer MEDICAID, SELFPAY ==
[2020-06-29 14:07] VITALS: BMI 18.9
[2020-07-01] VITALS (8 sets, daily range): BP systolic 78–117; BP diastolic 40–73; PULSE 59–84; RESP 16–18; TEMP 36.3–36.9; O2SAT 95–100
[2020-07-01 09:57] LABS: Urine Pregnancy, HCG Qual. Negative (Negative)
--- NOTE | 2020-07-01 11:34 | P.PN_ITS ---
[facility] Anesthesia Checklist - Patient Identification Patient Identification: Arm Band - Structural Data Admitted From: Home Planned Operative Procedure/s: colonoscopy Consent for Planned Operative Procedure(s) Verified: Yes Verified Documents: Surgical Consent, History and Physical - NPO Status Verified Time NPO: 00:00 - Additional verifications Anesthesia Reactions: No Hx Blood Transfusions: Yes (2010) Blood Transfusion Reaction: No - Airway Assessment C-Spine Mobility Assessed: Yes (mp2) TMJ Mobility Assessed: Yes Dentition: Good Dentition - Neurological Assessment Level of Consciousness: Awake, Alert - Anesthesia Plan Anesthesia Risk discussed: Yes Anesthesia Plan: Verified ASA Class: II Anesthesia Type: MAC [facility] History I have reviewed the patient's past medical history: Yes Medical History: Reports:: Anxiety, Nephritis Denies:: Cancer, Depression, Diabetes Mellitus Type 1, Diabetes Mellitus Type 2, Hyperlipidemia, Hypertension, Internal Pacemaker, Migraine, MRSA, Seizures *Have you ever received a pneumonia vaccine?: No *Have you received a flu vaccine this season?: No Other Medical History: Denies: Blood Transfusion Reaction Anesthesia experience/problems:: nac Other Surgeries: Yes: Cholecystectomy, , Dilation and Curettage, Other. No: Pacemaker Amputation: No Fractures: No - *Social History Last grade of school completed: 9th or 10th Smoking Status: Current every day smoker Tobacco Type: cigarettes # Packs/Day (cigarettes): 1 Alcohol Intake: never Substance Use Type: denies use *Occupational Status:: unemployed Housing: house Household Members: family *Travel in the last 8 weeks: None - Psychiatric History Pschychiatric History:: Reports:: Anxiety Denies:: Depression Family Hx:: Unable to obtain [employer] history: Spontaneous
--- NOTE | 2020-07-01 11:55 | P.PCN_ITS ---
[facility] Procedure Note Procedure Note:: Colonoscopy Procedure Report: Colonoscopy Endoscopist: Benny Chong II, MD Referring physician: RONDA Lowe/Mark Barnett MD Date of Procedure: July 01, 2020 Equipment: Olympus 180 variable stiffness pediatric colonoscope Sedation: MAC sedation Indication: Ms. Purvis is a 25-year-old female who is here for diagnostic colonoscopy. The patient reports ongoing abdominal pain in the right upper quadrant and epigastrium. She has had a prior upper endoscopy 5 years ago in [facility] and reportedly had some gastritis. She was also diagnosed with irritable bowel syndrome. The patient did have cholecystitis and had cholecystectomy (Dr. Mark Barnett M.D.) in October 2019. She has had ongoing pain in the right upper abdomen that can radiate and become more generalized. She reports some belching and minor bloating. She reports irregular bowel function that goes from diarrhea to constipation. She has some nausea. She has a first cousin with Crohn's disease and a brother with pancreatitis. She reports no significant weight loss but her weight fluctuates. She reports no rectal b leeding or family history of colon cancer. This is her first colonoscopy. Her CAT scan of the abdomen and pelvis in September 2019 that was essentially unremarkable. Procedure: Prior to the procedure, a history and physical exam was performed, and patient's medications and allergies were reviewed. The risks, benefits and alternatives of the sedation and procedure were discussed with the patient. All questions were answered and informed consent was obtained. The patient was brought to the procedure room. Patient identification and proposed procedure were verified by the physician and the nurse. The patient was placed in a left lateral decubitus position and the scope was passed under direct vision. Throughout the procedure, the patient's blood pressure, pulse, and oxygen saturations were monitored continuously. The colonoscopy was accomplished without difficulty. The patient tolerated the procedure well. Findings: On digital rectal examination there was normal rectal tone. There were no external hemorrhoids. The colonoscope was introduced through the anal canal to the rectum and advanced to the cecum. The ileocecal valve and appendiceal orifice were identified. The scope was advanced a short distance into the ileum which appeared grossly normal. The scope was then withdrawn into the colon. The cecum, ascending, transverse, descending, sigmoid and rectum were grossly normal. There was angulation at the hepatic flexure suggestive of hepatic flexure syndrome. There were no mucosal abnormalities identified. Upon retroflexion within the rectum there were grade 1 internal hemorrhoids.The preparation was excellent throughout with Vanleer Preparation Score of 9. The cecal time was 12 minutes. Impression: 1. Normal colonoscopy with intubation of the terminal ileum 2. 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 This is related to IBS/visceral sensitivity. We will discuss dietary measures and treatment options.
== END 2020-07-01 13:26 | disposition home or self-care (01) ==
LOC: OUTP 09:27
PROVIDERS: PCP Family Medicine; Visit Provider Internal Medicine Gastroenterology
PROC: 0DJD8ZZ Inspection of Lower Intestinal Tract, Via Natural or Artificial Opening Endoscopic (ICD-10-PCS; CPT 45378; principal; 2020-07-01 10:30)
DX: K64.0 First degree hemorrhoids (principal); Z87.19 Personal history of other diseases of the digestive system; Z83.79 Family history of other diseases of the digestive system; F41.9 Anxiety disorder, unspecified; N05.9 Unspecified nephritic syndrome with unspecified morphologic changes; Z90.49 Acquired absence of other specified parts of digestive tract; Z72.0 Tobacco use; K82.4 Cholesterolosis of gallbladder; R65.10 Systemic inflammatory response syndrome (SIRS) of non-infectious origin without acute organ dysfunction; Z88.5 Allergy status to narcotic agent
CPT/HCPCS: 81025

== ENCOUNTER 2020-08-05 01:42 | Emergency (ER) | payer MEDICAID, SELFPAY ==
[2020-08-05 01:46] VITALS: BP 110/69; PULSE 79; RESP 16; TEMP 36.8; O2SAT 98; BMI 19.5
--- NOTE | 2020-08-05 01:59 | PC.NURSE ---
VISUAL ACUITY: 20/20 R EYE, 20/20 L EYE, 20/20 BOTH EYES; NO GLASSES
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
[2020-08-05 02:48] VITALS: BP 110/76; PULSE 73; RESP 16; TEMP 36.8; O2SAT 99
== END 2020-08-05 02:48 | disposition home or self-care (01) ==
PROVIDERS: Emergency Provider Emergency Medicine; PCP Nurse Practitioner
DX: S05.02XA Injury of conjunctiva and corneal abrasion without foreign body, left eye, initial encounter (principal); W50.0XXA Accidental hit or strike by another person, initial encounter; Y92.019 Unspecified place in single-family (private) house as the place of occurrence of the external cause; Z88.5 Allergy status to narcotic agent; F17.210 Nicotine dependence, cigarettes, uncomplicated
CPT/HCPCS: 99281

== ENCOUNTER 2020-09-01 17:58 | Emergency (ER) | payer MEDICAID, SELFPAY ==
[2020-09-01 18:07] VITALS: BP 117/79; PULSE 114; RESP 16; TEMP 36.6; O2SAT 98; BMI 18.0
--- NOTE | 2020-09-01 18:24 | HMH.EDWNDL ---
ED Disposition Clinical Impression: Cellulitis Qualifiers: Site of cellulitis: trunk Site of cellulitis of trunk: chest wall Qualified Code(s): L03.313 - Cellulitis of chest wall Disposition: Home, Self-Care Condition on Discharge: Good Instructions: DI for Wound Infection Prescriptions: cephALEXin [Keflex 500mg Cap] 500 mg PO Q6H 7 Days #28 cap Transmission Status: Pending to [facility] Referrals: Bora Zhang APRN [Primary Care Provider] - - Critical Care Critical Care Time: No Attestation: On 09/01/20, the high probability of a clinically significant, sudden or life threatening deterioration of the following system(s) required my full and direct attention, intervention and personal management. The time I documented below is in addition to time spent performing reported procedures but includes the following listed in this critical care notation. Medical Decision Making - Medical Records Medical records reviewed: Yes: I reviewed the patient's medical records. - Tej Inquiry Pt receiving controlled substance: No Vital Signs: 09/01/20 18:07 Temperature 98 F Temperature Source Oral Pulse Rate [Radial] 114 H Respiratory Rate 16 Blood Pressure [Right Arm] 117/79 Blood Pressure Mean [Right Arm] 91 Blood Pressure Position [Right Arm] Sitting 02 Sat by Pulse Oximetry 98 Medical Decision Narrative: This is a 25-year-old female presented to the emergency department for evaluation of her wound. Patient is unsure if a clean utensil was used to perform her tattoo. She has some mild skin irritation around the left lateral chest site. There is no significant infection crepitus. I did explain to the patient the dangers of obtaining tattoos especially from unlicensed places. There is concern for blood-borne pathogens including tetanus, HIV as well as hepatitis. She does need follow-up with the health department or PCP for testing. Patient placed on a short course of antibiotic. Tetanus updated. Given strict return precautions. Verbalized understanding. Wound/Laceration HPI - General Chief Complaint: Wound/Laceration Stated Complaint: Wants tattoo checked for infection Time Seen by Provider: 09/01/20 18:15 Mode of Arrival: Ambulatory Limitations: No Limitations Description of Symptoms (Recalled from ER Triage Doc. by RN): TO ED PER [employer] PT STATES SHE WOULD LIKE HER TATTOO CHECKED FOR INFECTION. STATES SHE RECIEVED THE TATTOO 4 DAYS AGO AND TODAY HAD A SCAB THAT CAME OFF AND CLEAR FLUID OOZED OUT FROM SITE. PT DENIES NAUSEA, VOMITING, FEVER, CHILLS - History of Present Illness HPI narrative: 25-year-old female presented to the emergency department wanting to have her tattoo evaluated. Patient states that she got the tattoo done a few days ago. It was done by an unlicensed person. It was done at the house. Patient was concerned because the graphic production artist did not wear gloves and she is unsure if the needle was clean or not. She states that it looks strange. She has had some redness around the tattoo site since then. She is mainly concerned about the one on her left upper chest. She denies any fevers or chills. She has not had any significant discharge, has had some clear drainage. No chest pain or shortness of breath. No abdominal pain or vomiting. - Related Data Previous Rx's Medication Instructions Recorded cephALEXin [Keflex 500mg Cap] 500 mg PO Q6H 7 Days #28 cap 09/01/20 Allergies Allergy/AdvReac Type Severity Reaction Status Date / Time morphine [MORPHINE] Allergy Unknown Verified 04/20/20 10:29 oxycodone [From PERCOCET] Allergy Unknown Verified 04/20/20 10:29 [facility] History - Hepatitis A Screen Drug use history?: No High risk sexual behaviors?: No History of sexually transmitted infection?: No Currently employed?: No Childcare worker?: No Do you have indoor plumbing?: Yes Do you have electricity?: Yes Attestation statement:: This patient has been screen
[2020-09-01 18:53] VITALS: BP 123/74; BP 123/87; PULSE 78; PULSE 89; RESP 16; RESP 17; TEMP 36.6; TEMP 36.7; O2SAT 98; O2SAT 99
== END 2020-09-01 18:54 | disposition home or self-care (01) ==
PROVIDERS: Emergency Provider Emergency Medicine; PCP Nurse Practitioner
DX: L03.313 Cellulitis of chest wall (principal); F41.9 Anxiety disorder, unspecified
CPT/HCPCS: 90471; 90715; 99281

== ENCOUNTER → 2020-09-07 18:06 | Outpatient (CLI) | payer MEDICAID, SELFPAY ==
[2020-09-10 11:30] LABS: Neisseria gonorrhoeae, NAA Negative (Negative)
== END ==
PROVIDERS: Visit Provider Nurse Practitioner Obstetrics & Gynecology
DX: Z72.51 High risk heterosexual behavior (principal)
CPT/HCPCS: 87491; 87591

== ENCOUNTER 2020-12-08 16:43 | Emergency (ER) | payer MEDICAID, SELFPAY ==
[2020-12-08 16:45] VITALS: BP 107/78; PULSE 100; RESP 16; TEMP 36.8; O2SAT 98; BMI 18.8
[2020-12-08 17:20] LABS: Basophils # 0.1 K/mm3 (0-0.2); Basophils % 0.7 % (0.1-2.0); Eosinophils # 0.4 K/mm3 (0.0-0.4); Hematocrit 50.1 % (37.0-47.0); Lymphocytes # 2.4 K/mm3 (0.7-4.5); Lymphocytes % 22.5 % (10-50); Mean Corpuscular Hemoglobin 30.8 pg (27.0-31.2); Mean Corpuscular Volume 96.4 fl (81-99); Mean Platelet Volume 7.8 fl (7.4-10.4); Monocytes # 0.5 K/mm3 (0.1-1.0); Monocytes % 4.9 % (1.7-9.3); Neutrophils # 7.2 K/mm3 (1.8-7.8); Neutrophils % 67.9 % (37.0-80.0); Platelet Count 280 K/mm3 (142-424); Red Blood Count 5.19 M/mm3 (4.20-5.40); Red Cell Distribution Width 12.6 % (11.5-17.5); White Blood Count 10.6 K/mm3 (4.8-10.8)
[2020-12-08 17:28] LABS: Chloride 101 mmol/L (98-107); Sodium 137 mmol/L (136-145)
[2020-12-08 17:31] LABS: Alanine Aminotransferase 14 U/L (12-78); Alkaline Phosphatase 60 U/L (38-126); Amylase 67 U/L (30-110); Aspartate Amino Transferase 29 U/L (14-36); Bilirubin,Total 0.7 mg/dl (0.2-1.3); Blood Urea Nitrogen 13 mg/dl (7-17); Calcium 9.9 mg/dl (8.4-10.2); Carbon Dioxide 29 mmol/L (22.0-30.0); Creatinine Clearance Estimated 81 mL/min (50-200); Estimated Glomerular Filt Rate 87 ml/min (>60); GFR (African American) 105 ML/MIN (>60); Glucose 118 mg/dl (74-100); Lipase 64 U/L (23-300)
[2020-12-08 17:32] LABS: Albumin Level 4.9 g/dl (3.5-5.0); Albumin/Globulin Ratio 1.3 (1.1-1.8); Globulin 3.7 g/dL (1.3-3.2); Total Protein,Serum 8.6 g/dl (6.3-8.2)
[2020-12-08 17:45] LABS: Coronavirus 19 IgG Antibody Negative (Negative); Coronavirus 19 IgM Antibody Negative (Negative)
--- NOTE | 2020-12-08 18:02 | HMH.EDGENADL ---
ED Disposition Clinical Impression: Enteritis Disposition: Home, Self-Care Condition on Discharge: Good Instructions: DI for Enteritis Additional Instructions: Phenergan as needed for nausea and vomiting. [id number] Imodium as needed for diarrhea. Follow-up with primary care provider in 2 to 3 days. Urine culture results from primary care provider in 2 to 3 days. Additional instructions for ABDOMINAL PAIN: See your physician as soon as possible for further evaluation. Return immediately if worsening abdominal pain, vomiting, shortness of breath, fever, vomiting of blood or abdominal distention. Additional instructions for VOMITING/DIARRHEA: See your physician as soon as possible for further evaluation. Return immediately if severe abdominal pain, uncontrollable vomiting, shortness of breath, fever, vomiting of blood or abdominal distention. Referrals: Bora Zhang APRN [Primary Care Provider] - - Critical Care Critical Care Time: No Attestation: On 12/08/20, the high probability of a clinically significant, sudden or life threatening deterioration of the following system(s) required my full and direct attention, intervention and personal management. The time I documented below is in addition to time spent performing reported procedures but includes the following listed in this critical care notation. Medical Decision Making - Tej Inquiry Pt receiving controlled substance: No Vital Signs: 12/08/20 16:45 Temperature 98.3 F Temperature Source Oral Pulse Rate [Left Radial] 100 H Respiratory Rate 16 Blood Pressure [Right Arm] 107/78 L Blood Pressure Mean [Right Arm] 87 Blood Pressure Source [Right Arm] Automatic Cuff Blood Pressure Position [Right Arm] Sitting 02 Sat by Pulse Oximetry 98 Oxygen Delivery Method Room Air - Lab Data Lab Results 12/08/20 16:56: WBC 10.6, RBC 5.19, Hgb 16.0, Hct 50.1 H, MCV 96.4, MCH 30.8, MCHC 32.0, RDW 12.6, Plt Count 280, MPV 7.8, Neut % (Auto) 67.9, Lymph % (Auto) 22.5, [place] % (Auto) 4.9, Eos % (Auto) 4.0, Baso % (Auto) 0.7, Neut # (Auto) 7.2, Lymph # (Auto) 2.4, [place] # (Auto) 0.5, Eos # (Auto) 0.4, Baso # (Auto) 0.1 12/08/20 16:56: Sodium 137, Potassium 4.0, Chloride 101, Carbon Dioxide 29, Anion Gap 11.0, BUN 13, Creatinine 0.80, Estimated Creat Clear 81, Estimated GFR 87, Est GFR ( Amer) 105, Glucose 118 H, Calcium 9.9, Total Bilirubin 0.7, AST 29, ALT 14, Alkaline Phosphatase 60, Total Protein 8.6 H, Albumin 4.9, Globulin 3.7 H, Albumin/Globulin Ratio 1.3, Amylase 67, Lipase 64 12/08/20 16:56: SARS-CoV-2 IgG Ab (Rapid) Negative, SARS-CoV-2 IgM Ab (Rapid) Negative 12/08/20 17:08: Urine Color Yellow, Urine Appearance Clear, Urine pH 6.0, Ur Specific [place] >= 1.030, Urine Protein Negative, Urine Glucose (UA) Negative, Urine Ketones Negative, Urine Blood 2+, Urine Nitrate Negative, Urine Bilirubin Negative, Urine Urobilinogen 0.2, Ur Leukocyte Esterase 1+ A, Urine RBC 10-20, Urine WBC 5-10, Ur Squamous Epith Cells 10-20, Urine Bacteria 1+ 12/08/20 18:02: Urine HCG, Qual Negative Result diagrams: 12/08/20 16:56 12/08/20 16:56 Orders (Tests/Meds): ED MEDICATIONS Generic Name Dose Route Start Last Admin Trade Name Freq PRN Reason Stop Dose Admin Sodium Chloride 1,000 mls @ 999 mls/hr 12/08/20 17:15 12/08/20 17:22 Sod Chlor 0.9% 1000ml Bag IV 12/08/20 18:15 999 mls/hr .Q1H1M KATINA Administration Sodium Chloride 8 ml 12/08/20 18:19 Sodium Chloride 0.9% 10ml Vial IV 01/07/21 18:18 NEEDED PRN dilute pepcid Discontinued Medications Generic Name Dose Route Start Last Admin Trade Name Freq PRN Reason Stop Dose Admin Famotidine 20 mg 12/08/20 18:19 12/08/20 18:34 Famotidine 20mg/2ml Vial IV 12/08/20 18:20 20 mg ONCE ONE Administration Sodium Chloride 1,000 mls @ 999 mls/hr 12/08/20 18:15 Sod Chlor 0.9% 1000ml Bag IV 12/08/20 19:15 .Q1H1M KATINA Iopamidol 75 ml 12/08/20 19:00 12/08/20 19:01 Io
[2020-12-08 18:06] LABS: Microscopic, Urine URINE MICROSCOPIC (MICROSCOPIC)
[2020-12-08 18:08] LABS: Appearance,Urine CLEAR (Clear); Bilirubin,Urine Negative (Negative); Blood, Urine 2+ (Negative); Color,Urine YELLOW (Yellow); Glucose,Urine (UA) Negative (Negative); Ketones,Urine Negative (Negative); Leukocyte Esterase,Urine 1+ (Negative); Nitrate,Urine Negative (Negative); Protein,Urine Negative (Negative); Specific Gravity, Urine >= 1.030 (1.005-1.030); Urobilinogen,Urine 0.2 EU/dl (0.2)
[2020-12-08 18:10] LABS: Urine Pregnancy, HCG Qual. Negative (Negative)
--- NOTE | 2020-12-08 18:14 | CT_ITS ---
PROCEDURE: CT ABDOMEN PELVIS W CON CLINICAL INDICATION: abdominal pain Generalized abdominal pain COMPARISON: CT CT ABDOMEN PELVIS W CON from 09/12/2019 TECHNIQUE: IV Contrast: 75ML Isovue 370 Oral Contrast None Axial images obtained with sagittal and coronal reformats. All CT scans at the facility use one or more dose reduction, viz: automated exposure control, ma/kV adjustment per patient size (including targeted exams where dose is matched to indication, i.e. head), or iterative reconstruction technique. FINDINGS: LOWER THORAX: No acute finding ABDOMEN & PELVIS: Prior cholecystectomy. The liver, spleen, adrenal glands, and pancreas have an unremarkable appearance. No evidence of appendicitis. No evidence of diverticulitis. Multiple unopacified bowel loops in the abdomen or pelvis which could obscure or mimic pathology. If symptoms persist, consider repeat exam with IV and oral contrast.. The uterus is anteverted with minimal prominence of the hypodense endometrium. Pelvic ultrasound may provide further evaluation if clinically warranted. No acute bony findings IMPRESSION: 1. No acute finding. 2. Multiple unopacified bowel loops in the abdomen or pelvis which could obscure or mimic pathology. If symptoms persist, consider repeat exam with IV and oral contrast.. 3. Mild nonspecific prominence of the low-density endometrium with anteverted uterus. Dictated by: Erick Hatfield MD 12/09/2020 06:16 Erick Hatfield MD in [facility] 12/09/2020 06:16
[2020-12-08 18:16] LABS: Bacteria,Urine 1+ /lpf
--- NOTE | 2020-12-08 18:36 | PC.NURSE ---
Pt taken to CT
[2020-12-08 20:04] VITALS: BP 128/72; PULSE 79; RESP 16; TEMP 36.6; O2SAT 98
== END 2020-12-08 20:16 | disposition home or self-care (01) ==
PROVIDERS: Emergency Provider Emergency Medicine; PCP Nurse Practitioner
DX: K52.9 Noninfective gastroenteritis and colitis, unspecified (principal); M54.5 Low back pain; Z01.84 Encounter for antibody response examination; F41.9 Anxiety disorder, unspecified; F17.210 Nicotine dependence, cigarettes, uncomplicated; Z88.5 Allergy status to narcotic agent
CPT/HCPCS: 74177; 80053; 81001; 81025; 82150; 83690; 85025; 86328; 87086; 96365; 96366; 99283; J2405; Q9967

== ENCOUNTER 2020-12-16 02:34 | Emergency (ER) | payer MEDICAID, SELFPAY ==
[2020-12-16] VITALS (8 sets, daily range): BP systolic 94–125; BP diastolic 50–88; PULSE 81–111; RESP 16; TEMP 36.6–36.7; O2SAT 97–100; BMI 19.1
--- NOTE | 2020-12-16 03:01 | XR_ITS ---
PROCEDURE: XR CHEST 2V CLINICAL HISTORY: pain Chest pain COMPARISON: No exams were available for comparison FINDINGS: The cardiomediastinal silhouette and pulmonary vascularity are within normal limits. The lungs are clear without infiltrates, suspicious nodules, or pleural effusions. No acute bony abnormalities. IMPRESSION: No acute findings. Dictated by: Erick Hatfield MD 12/16/2020 04:22 Erick Hatfield MD in [facility] 12/16/2020 04:22
[2020-12-16 03:05] LABS: Microscopic, Urine URINE MICROSCOPIC (MICROSCOPIC)
[2020-12-16 03:08] LABS: Appearance,Urine CLEAR (Clear); Bilirubin,Urine Negative (Negative); Blood, Urine Negative (Negative); Color,Urine YELLOW (Yellow); Glucose,Urine (UA) Negative (Negative); Ketones,Urine Negative (Negative); Leukocyte Esterase,Urine Negative (Negative); Nitrate,Urine Negative (Negative); Protein,Urine Negative (Negative); Specific Gravity, Urine >= 1.030 (1.005-1.030); Urobilinogen,Urine 0.2 EU/dl (0.2)
[2020-12-16 03:15] LABS: Bacteria,Urine 1+ /lpf; Mucus,Urine 1+ /lpf; Urine Pregnancy, HCG Qual. Negative (Negative)
[2020-12-16 03:27] LABS: Amphetamine/Metha Screen,Urine Negative ng/ml (<1000)
[2020-12-16 03:29] LABS: Barbiturates Screen,Urine Negative ng/ml (<200); Benzodiazepines Screen,Urine Negative ng/ml (<200)
--- NOTE | 2020-12-16 03:29 | ECG_ITS ---
APPROVED REPORT Exam: Resting ECG HR:113 bpm ECG Measurements Heart Rate 113 AXES CO 146 P 82 QRSd 74 QRS 80 QT 328 T 33 QTc 449 Conclusion Sinus tachycardia Biatrial abnormality Abnormal ECG Electronically signed by : Chucky Mao, 12/16/2020 05:59:50
[2020-12-16 03:30] LABS: Cannabinoid Screen,Urine Positive ng/ml (<50)
[2020-12-16 03:31] LABS: Cocaine Screen,Urine Negative ng/ml (<300); Methadone Screen,Urine Negative ng/ml (<300)
[2020-12-16 03:32] LABS: Opiate Screen,Urine Negative ng/ml (<300)
[2020-12-16 03:33] LABS: Phencyclidine Screen,Urine Negative ng/ml (<25)
[2020-12-16 03:55] LABS: Basophils # 0.1 K/mm3 (0-0.2); Basophils % 0.4 % (0.1-2.0); Eosinophils # 0.5 K/mm3 (0.0-0.4); Eosinophils % 2.3 % (0.1-12.0); Hematocrit 50.2 % (37.0-47.0); Hemoglobin 16.4 g/dL (12.2-16.2); Lymphocytes # 1.3 K/mm3 (0.7-4.5); Lymphocytes % 5.4 % (10-50); Mean Corpuscular HGB Conc 32.6 g/dL (31.8-35.4); Mean Corpuscular Hemoglobin 31.4 pg (27.0-31.2); Mean Corpuscular Volume 96.2 fl (81-99); Monocytes # 1.1 K/mm3 (0.1-1.0); Monocytes % 4.5 % (1.7-9.3); Neutrophils # 20.8 K/mm3 (1.8-7.8); Neutrophils % 87.4 % (37.0-80.0); Platelet Count 287 K/mm3 (142-424); Red Blood Count 5.22 M/mm3 (4.20-5.40); Red Cell Distribution Width 12.7 % (11.5-17.5); White Blood Count 23.8 K/mm3 (4.8-10.8)
[2020-12-16 04:02] LABS: Alanine Aminotransferase 14 U/L (12-78); Albumin/Globulin Ratio 1.3 (1.1-1.8); Alkaline Phosphatase 60 U/L (38-126); Amylase 63 U/L (30-110); Anion Gap 11.7 mEq/L (5-15); Aspartate Amino Transferase 23 U/L (14-36); Bilirubin,Total 0.4 mg/dl (0.2-1.3); Blood Urea Nitrogen 13 mg/dl (7-17); Calcium 10.1 mg/dl (8.4-10.2); Carbon Dioxide 27 mmol/L (22.0-30.0); Chloride 105 mmol/L (98-107); Creatinine Clearance Estimated 94 mL/min (50-200); Estimated Glomerular Filt Rate 101 ml/min (>60); GFR (African American) 122 ML/MIN (>60); Globulin 3.8 g/dL (1.3-3.2); Glucose 148 mg/dl (74-100); Lipase 58 U/L (23-300); Potassium 3.7 mmoL/L (3.5-5.1); Sodium 140 mmol/L (136-145); Total Protein,Serum 8.8 g/dl (6.3-8.2)
[2020-12-16 04:06] LABS: MANUAL DIFFERENTIAL MANUAL DIFFERENTIAL (MANUAL DIFF)
[2020-12-16 04:07] LABS: C-Reactive Protein 1.7 mg/L (0-4)
--- NOTE | 2020-12-16 04:12 | CT_ITS ---
PROCEDURE: CT ABDOMEN PELVIS W CON CLINICAL INDICATION: Nausea with high WBC COMPARISON: CT CT ABDOMEN PELVIS W CON from 12/08/2020 TECHNIQUE: IV Contrast: 75ML Isovue 370 Oral Contrast Gastroview Axial images obtained with sagittal and coronal reformats. All CT scans at the facility use one or more dose reduction, viz: automated exposure control, ma/kV adjustment per patient size (including targeted exams where dose is matched to indication, i.e. head), or iterative reconstruction technique. FINDINGS: LOWER THORAX: No acute finding ABDOMEN & PELVIS: There has been a prior cholecystectomy. There is minimal biliary ectasia the intrahepatic biliary radicles. No focal liver lesion demonstrated. Spleen, adrenal glands, and pancreas have an unremarkable appearance. No renal or ureteral calculi. No intestinal obstruction or free air. No evidence of appendicitis or diverticulitis. The uterus and cervical area are bulky. Consider correlation with physical exam. No abnormal fluid collections or focal inflammatory change. No acute bony findings. IMPRESSION: Overall no change with no acute finding. The uterus and cervix appears somewhat bulky nonspecific. Dictated by: Erick Hatfield MD 12/16/2020 06:29 Erick Hatfield MD in [facility] 12/16/2020 06:29
[2020-12-16 04:21] LABS: Procalcitonin 0.032 ng/mL (0.0-2.0)
--- NOTE | 2020-12-16 04:22 | PC.NURSE ---
Pt finished PO contrast at this time.
[2020-12-16 04:26] LABS: Troponin I < 0.01 ng/ml (0.00-0.034)
[2020-12-16 04:37] LABS: Erythrocyte Sedimentation Rate 1 mm/hr (0-20)
[2020-12-16 04:40] LABS: Eosinophils % 2 % (0-3); Lymphocytes % 6 % (10-50); Monocytes % 1 % (2-9); Neutrophils % 91 % (42-76); Platelet Estimate Normal; Stomatocytes 1+; Total Cells Counted 100
[2020-12-16 04:41] LABS: Coronavirus 19 IgG Antibody Negative (Negative); Coronavirus 19 IgM Antibody Negative (Negative)
--- NOTE | 2020-12-16 07:00 | HMH.EDNVD ---
ED Disposition Clinical Impression: Sphincter of Oddi dysfunction Abdominal pain Qualifiers: Abdominal location: epigastric Qualified Code(s): R10.13 - Epigastric pain Leukocytosis Qualifiers: Leukocytosis type: unspecified Qualified Code(s): D72.829 - Elevated white blood cell count, unspecified Disposition: Home, Self-Care Condition on Discharge: Good Instructions: DI for Nausea -- Adult Additional Instructions: fluids and use meds and see pcp and recheck if sx increase and call dr chong for follow up Prescriptions: Dicyclomine HCl [Bentyl 10mg capsule] 10 mg PO TID #21 cap Transmission Status: Pending to [facility] Referrals: Thelma Blake [Primary Care Provider] - Benny Chong MD [Staff Physician] - - Critical Care Critical Care Time: No Attestation: On 12/16/20, the high probability of a clinically significant, sudden or life threatening deterioration of the following system(s) required my full and direct attention, intervention and personal management. The time I documented below is in addition to time spent performing reported procedures but includes the following listed in this critical care notation. Medical Decision Making - Medical Records Medical records reviewed: Yes: I reviewed the patient's medical records. - Tej Inquiry Pt receiving controlled substance: No Vital Signs: 12/16/20 02:36 12/16/20 03:00 12/16/20 03:30 Temperature 98.1 F Temperature Source Oral Pulse Rate [Left Radial] 111 H 105 H 107 H Respiratory Rate 16 Blood Pressure [Right Arm] 116/82 116/83 125/88 Blood Pressure Mean [Right Arm] 93 94 100 Blood Pressure Source [Right Arm] Automatic Cuff Automatic Cuff Automatic Cuff Blood Pressure Position [Right Arm] Sitting Sitting Supine 02 Sat by Pulse Oximetry 98 99 98 Oxygen Delivery Method Room Air Room Air Room Air 12/16/20 04:00 12/16/20 05:00 12/16/20 05:30 Temperature Temperature Source Pulse Rate [Left Radial] 98 H 81 84 Respiratory Rate 16 16 Blood Pressure [Right Arm] 119/86 98/63 L 96/50 L Blood Pressure Mean [Right Arm] 97 74 65 Blood Pressure Source [Right Arm] Automatic Cuff Automatic Cuff Automatic Cuff Blood Pressure Position [Right Arm] Supine Supine Supine 02 Sat by Pulse Oximetry 100 97 99 Oxygen Delivery Method Room Air Room Air Room Air 12/16/20 07:33 Temperature Temperature Source Pulse Rate [Left Radial] 91 H Respiratory Rate 16 Blood Pressure [Right Arm] 94/60 L Blood Pressure Mean [Right Arm] 71 Blood Pressure Source [Right Arm] Blood Pressure Position [Right Arm] Sitting 02 Sat by Pulse Oximetry 98 Oxygen Delivery Method Room Air - Lab Data Lab results reviewed: Yes: I reviewed the patient's lab results. Lab Results 12/16/20 02:45: Urine Color Yellow, Urine Appearance Clear, Urine pH 6.0, Ur Specific [place] >= 1.030, Urine Protein Negative, Urine Glucose (UA) Negative, Urine Ketones Negative, Urine Blood Negative, Urine Nitrate Negative, Urine Bilirubin Negative, Urine Urobilinogen 0.2, Ur Leukocyte Esterase Negative, Urine WBC 3-5, Ur Squamous Epith Cells 3-5, Urine Bacteria 1+, Urine Mucus 1+ 12/16/20 02:45: Urine Opiates Screen Negative, Urine Methadone Screen Negative, Ur Barbituates Screen Negative, Ur Phencyclidine Scrn Negative, Ur Amphetamines Screen Negative, U Benzodiazepines Scrn Negative, Urine Cocaine Screen Negative, U Marijuana (THC) Screen Positive H 12/16/20 02:45: Urine HCG, Qual Negative 12/16/20 03:48: WBC 23.8 H*, RBC 5.22, Hgb 16.4 H, Hct 50.2 H, MCV 96.2, MCH 31.4 H, MCHC 32.6, RDW 12.7, Plt Count 287, MPV 8.0, Neut % (Auto) 87.4 H, Lymph % (Auto) 5.4 L, [place] % (Auto) 4.5, Eos % (Auto) 2.3, Baso % (Auto) 0.4, Neut # (Auto) 20.8 H, Lymph # (Auto) 1.3, [place] # (Auto) 1.1 H, Eos # (Auto) 0.5 H, Baso # (Auto) 0.1, Total Counted 100, Neutrophils % (Manual) 91 H, Lymphocytes % (Manual) 6 L, Monocytes % (Manual) 1 L, Eosinophils % (Manual) 2, Platelet Estimate Normal, RBC Morphology No
== END 2020-12-16 08:27 | disposition home or self-care (01) ==
PROVIDERS: Emergency Provider Emergency Medicine; PCP Family Medicine
DX: K83.4 Spasm of sphincter of Oddi (principal); D72.829 Elevated white blood cell count, unspecified; F41.9 Anxiety disorder, unspecified; F12.10 Cannabis abuse, uncomplicated; Z01.84 Encounter for antibody response examination; Z88.5 Allergy status to narcotic agent
CPT/HCPCS: 71046; 74177; 80053; 80305; 81001; 81025; 82150; 83605; 83690; 84145; 84484; 85007; 85025; 85651; 86140; 86328; 87040; 93005; 96365; 96367; 96375; 99284; J2405; Q9967

== ENCOUNTER → 2021-01-27 10:23 | Outpatient (CLI) | payer MEDICAID, SELFPAY ==
--- NOTE | 2021-01-27 10:30 | MR_ITS ---
PROCEDURE: MR ABDOMEN WO CON CLINICAL INDICATION: EVALUATE BILE DUCTS Right upper quadrant pain COMPARISON: CT CT ABDOMEN PELVIS W CON from 12/08/[address] ABDOMEN PELVIS W CON from 12/16/2020 TECHNIQUE: Routine multiplanar multi echo sequences are performed without gadolinium enhancement. MRCP images also performed FINDINGS: There is a mild degree of motion artifact which somewhat obscures fine detail. The common bile in biliary radicles have an unremarkable appearance. The pancreatic duct is not well delineated due to the motion artifact. No pancreatic ductal dilatation is evident. No common duct stones apparent. IMPRESSION: Motion artifact obscures fine detail. No obvious common duct stones. Common bile duct is within normal limits at 5 mm. Dictated by: Erick Hatfield MD 01/29/2021 10:10 Erick Hatfield MD in [facility] 01/29/2021 10:10
== END ==
PROVIDERS: Visit Provider Nurse Practitioner Family
DX: R10.11 Right upper quadrant pain (principal); R11.0 Nausea; R19.7 Diarrhea, unspecified
CPT/HCPCS: 74181; 76376

== ENCOUNTER → 2021-04-12 15:17 | Outpatient (CLI) | payer MEDICAID, SELFPAY ==
[2021-04-12 16:03] LABS: Alanine Aminotransferase 17 U/L (12-78); Albumin Level 4.6 g/dl (3.5-5.0); Albumin/Globulin Ratio 1.7 (1.1-1.8); Alkaline Phosphatase 54 U/L (38-126); Anion Gap 11.6 mEq/L (5-15); Aspartate Amino Transferase 24 U/L (14-36); Bilirubin,Total 0.5 mg/dl (0.2-1.3); Blood Urea Nitrogen 10 mg/dl (7-17); Calcium 9.3 mg/dl (8.4-10.2); Carbon Dioxide 28 mmol/L (22.0-30.0); Chloride 105 mmol/L (98-107); Estimated Glomerular Filt Rate 87 ml/min (>60); GFR (African American) 105 ML/MIN (>60); Globulin 2.7 g/dL (1.3-3.2); Glucose 103 mg/dl (74-100); Potassium 4.6 mmoL/L (3.5-5.1); Sodium 140 mmol/L (136-145); Total Protein,Serum 7.3 g/dl (6.3-8.2)
== END ==
PROVIDERS: Visit Provider Nurse Practitioner Family
DX: R10.11 Right upper quadrant pain (principal); R11.0 Nausea; R19.7 Diarrhea, unspecified
CPT/HCPCS: 36415; 80053

== ENCOUNTER → 2021-05-22 15:31 | Outpatient (CLI) | payer MEDICAID, SELFPAY ==
--- NOTE | 2021-05-22 15:34 | US_ITS ---
PROCEDURE: US TRANSVAGINAL CLINICAL INDICATION: pt. has very heavy periods Heavy painful periods COMPARISON: US OBTV US OB transvaginal from 01/07/2018 FINDINGS: UTERUS: 8cm x 6cmx 4cm with a combined endometrial thickness of 8mm LEFT OVARY: [id number] with a volume of 7.4ml. RIGHT OVARY: [id number] with a volume of 7ml. No uterine mass or adnexal mass or abnormal fluid collection IMPRESSION: Unremarkable pelvic ultrasound Dictated by: Erick Hatfield MD 05/22/2021 16:19 Erick Hatfield MD in [facility] 05/22/2021 16:19
== END ==
PROVIDERS: PCP Family Medicine; Visit Provider Nurse Practitioner Obstetrics & Gynecology
DX: N92.0 Excessive and frequent menstruation with regular cycle (principal)
CPT/HCPCS: 76830

== ENCOUNTER 2021-06-07 17:55 | Emergency (ER) | payer MEDICAID, SELFPAY ==
[2021-06-07 17:57] VITALS: BP 138/80; PULSE 116; RESP 18; TEMP 36.8; O2SAT 98; BMI 18.2
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
[2021-06-07 19:11] VITALS: BP 121/73; PULSE 74; RESP 18; TEMP 36.6; O2SAT 98
== END 2021-06-07 19:13 | disposition home or self-care (01) ==
PROVIDERS: Emergency Provider Emergency Medicine; PCP Family Medicine
DX: S61.217A Laceration without foreign body of left little finger without damage to nail, initial encounter (principal); W25.XXXA Contact with sharp glass, initial encounter; Y92.89 Other specified places as the place of occurrence of the external cause; F17.210 Nicotine dependence, cigarettes, uncomplicated; Z88.5 Allergy status to narcotic agent
CPT/HCPCS: 12001; 99282

== ENCOUNTER → 2021-06-23 14:06 | Outpatient (CLI) | payer MEDICAID, SELFPAY ==
[2021-06-23 14:26] LABS: Basophils # 0.1 K/mm3 (0-0.2); Basophils % 0.9 % (0.1-2.0); Eosinophils # 0.4 K/mm3 (0.0-0.4); Eosinophils % 4.6 % (0.1-12.0); Hematocrit 47.3 % (37.0-47.0); Lymphocytes # 2.1 K/mm3 (0.7-4.5); Lymphocytes % 24.5 % (10-50); Mean Corpuscular HGB Conc 33.8 g/dL (31.8-35.4); Mean Corpuscular Hemoglobin 31.5 pg (27.0-31.2); Mean Corpuscular Volume 93.3 fl (81-99); Mean Platelet Volume 7.9 fl (7.4-10.4); Monocytes # 0.5 K/mm3 (0.1-1.0); Monocytes % 6.4 % (1.7-9.3); Neutrophils # 5.3 K/mm3 (1.8-7.8); Neutrophils % 63.6 % (37.0-80.0); Platelet Count 328 K/mm3 (142-424); Red Blood Count 5.08 M/mm3 (4.20-5.40); Red Cell Distribution Width 12.8 % (11.5-17.5); White Blood Count 8.4 K/mm3 (4.8-10.8)
[2021-06-23 14:53] LABS: Anion Gap 14.3 mEq/L (5-15); Blood Urea Nitrogen 10 mg/dl (7-17); Calcium 9.5 mg/dl (8.4-10.2); Carbon Dioxide 24 mmol/L (22.0-30.0); Chloride 106 mmol/L (98-107); Estimated Glomerular Filt Rate 86 ml/min (>60); GFR (African American) 104 ML/MIN (>60); Glucose 119 mg/dl (74-100); Potassium 4.3 mmoL/L (3.5-5.1); Sodium 140 mmol/L (136-145)
[2021-06-23 14:59] LABS: HCG Qualitative, Serum Negative (Negative)
== END ==
PROVIDERS: Visit Provider Nurse Practitioner Obstetrics & Gynecology
DX: Z01.818 Encounter for other preprocedural examination (principal); Z11.52 Encounter for screening for COVID-19; N92.0 Excessive and frequent menstruation with regular cycle
CPT/HCPCS: 36415; 80048; 84703; 85025; U0003

== ENCOUNTER 2021-06-26 09:37 | Day surgery (SDC) | payer MEDICAID, SELFPAY ==
[2021-06-23 13:25] VITALS: BMI 18.4
[2021-06-26] VITALS (17 sets, daily range): BP systolic 97–135; BP diastolic 53–84; PULSE 53–85; RESP 12–18; TEMP 36.2–43; O2SAT 94–100
[2021-06-26 10:04] LABS: Urine Pregnancy, HCG Qual. Negative (Negative)
--- NOTE | 2021-06-26 12:26 | HMH.ANESCL ---
[facility] Anesthesia Checklist - Structural Data Admitted From: Home Planned Operative Procedure/s: d/c,hyst,noASURE Consent for Planned Operative Procedure(s) Verified: Yes - Additional verifications Anesthesia Reactions: No Hx Blood Transfusions: Yes (2010) Blood Transfusion Reaction: No - Airway Assessment C-Spine Mobility Assessed: Yes TMJ Mobility Assessed: Yes Dentition: Good Dentition - Neurological Assessment Level of Consciousness: Awake, Alert, Appropriate - Anesthesia Plan Anesthesia Risk discussed: Yes Anesthesia Plan: Verified ASA Class: II Anesthesia Type: General [facility] History I have reviewed the patient's past medical history: Yes Medical History: Reports:: Anxiety, Nephritis Denies:: Cancer, Depression, Diabetes Mellitus Type 1, Diabetes Mellitus Type 2, Hyperlipidemia, Hypertension, Internal Pacemaker, Migraine, MRSA, Seizures *Have you ever received a pneumonia vaccine?: No *Have you received a flu vaccine this season?: No Other Medical History: Denies: Blood Transfusion Reaction Anesthesia experience/problems:: NONE Other Surgeries: Yes: Cholecystectomy, , Dilation and Curettage, Tubal Ligation, Other. No: Pacemaker Amputation: No Fractures: No - *Social History Last grade of school completed: 9th or 10th Smoking Status: Current every day smoker Tobacco Type: cigarettes # Packs/Day (cigarettes): 1 Alcohol Intake: never Alcohol Intake Frequency:: other Substance Use Type: denies use *Occupational Status:: unemployed Housing: house Household Members: family *Travel in the last 8 weeks: None - Psychiatric History Pschychiatric History:: Reports:: Anxiety Denies:: Depression Family Hx:: Unable to obtain VALIDATION ARCHITECT history: Spontaneous
--- NOTE | 2021-06-26 12:51 | HMH.OPNOTE ---
Date of procedure: 06/26/21 Pre-op Diagnosis:: Menorrhagia, labial hypertrophy Post-op Diagnosis:: Menorrhagia, labial hypertrophy Procedure performed:: Hysteroscopy, dilation curettage, NovaSure ablation, bilateral labioplasty Surgeon:: Luis Ferrell MD Anesthesia: LMA Estimated blood loss (mL): 100 Clinical Note:: She is a 26-year-old lady who complains of extremely heavy periods. Endometrial biopsy and ultrasound were normal. She also complained of painful intercourse with labial hypertrophy. As result of this she was offered hysteroscopy, D&C and NovaSure ablation. She also wanted a bilateral labioplasty. Operative findings:: She had a thin endometrium and a uterus that sounded to 7 cm. The width of the uterus was 4.1 cm and the length of the endometrial cavity was 5.5 cm. She had bilateral labial hypertrophy. Operative note:: She was taken to the operating room where LMA anesthesia was found be adequate. She was prepped and draped in the normal sterile fashion in the lithotomy position. A weighted speculum was placed in the vagina and the anterior lip of the cervix was grasped with a tenaculum. The cervix was then dilated to approximately 6 mm. I then inserted a hysteroscope into the uterine cavity and the findings were as previously dictated. I then performed a gentle curettage with a medium curette. I then sounded the uterus and determine the length of the uterus. This was placed into the NovaSure device. I then inserted the NovaSure device and determine the width of the endometrial cavity. I then ran the device through its program. I further inspected the endometrial cavity and was found to be completely charred. I then injected 30 cc of 0.5% ropivacaine at the 3:00, 5:00, 7:00, and 9:00 positions of the cervix. We then grasped her right labia with Allis clamps and using scissors I removed a small labia. This was performed bilaterally. I closed the incision with interrupted 3-0 Vicryl Rapide suture. I then injected approximately 10 cc ropivacaine subcutaneously along the lateral aspect of both labia. She tolerated procedure well and was taken to the recovery room in excellent condition. All sponge and instrument counts were correct. The estimated blood loss was less than 100 cc. Condition: stable Disposition: PACU Specimens:: Endometrial curettings Complications:: None
--- NOTE | 2021-06-26 12:57 | HMH.ANESI ---
[facility] Anesthesia Record Part I Intake, IV Amount: 1,200 Estimated blood loss (mL): 100 Urine output (mL): 0 Blood Pressure: 125/84 SaO2: 98 Pulse Rate: 67 Respiratory Rate: 12 Temperature: 97.8 F Patient is:: Awake, Stable Stable to PACU at:: 12:55
--- NOTE | 2021-06-27 07:50 | HMH.ANESII ---
[facility] Anesthesia Record Part II Discharge Time: 14:45 Destination: Surgical Day Care (OP Surgery) PACU nurse assessment reviewed?: Yes Patient Condition:: Good Anesthesia Complications:: None Swallowing reflex intact?: Yes Cyanosis?: No Blood Pressure: 117/81 Pulse Rate: 53 Temperature: 98.4 F Mental Status: Alert & Oriented Pain level:: 0 Nausea and/or vomitting:: None Intake, IV Amount: 0
[2021-06-27 07:51] VITALS: BP 117/81; PULSE 53; TEMP 36.9
== END 2021-06-26 16:05 | disposition home or self-care (01) ==
LOC: OR 09:38
PROVIDERS: PCP Family Medicine; Visit Provider Nurse Practitioner Obstetrics & Gynecology
PROC: 0U5B8ZZ Destruction of Endometrium, Via Natural or Artificial Opening Endoscopic (ICD-10-PCS; CPT 58563; principal; 2021-06-26 11:30)
PROC: (CPT 56620; 2021-06-26 11:30)
DX: N92.1 Excessive and frequent menstruation with irregular cycle (principal); N90.60 Unspecified hypertrophy of vulva; F41.9 Anxiety disorder, unspecified; N05.9 Unspecified nephritic syndrome with unspecified morphologic changes; Z72.0 Tobacco use; Z88.6 Allergy status to analgesic agent
CPT/HCPCS: 58563; 56620; 81025; 96374; J2405

== ENCOUNTER 2021-07-02 01:26 | Emergency (ER) | payer MEDICAID, SELFPAY ==
[2021-07-02 01:01] VITALS: BMI 18.2
--- NOTE | 2021-07-02 01:23 | XR_ITS ---
PROCEDURE INFORMATION: Exam: XR Chest Exam date and time: 07/02/2021 1:23 AM Age: 26 years old Clinical indication: Cough and other: Sore throat ribs hurt from coughing; Additional info: Cough with rib pain sore throat TECHNIQUE: Imaging protocol: XR of the chest. Views: 1 view. COMPARISON: CR XR CHEST 2V 12/16/2020 3:09 AM FINDINGS: Lungs: No consolidation. No pulmonary edema. Bilateral nipple shadows noted. Pleural spaces: No pleural effusion. No pneumothorax. Heart/Mediastinum: Normal heart size. Bones/joints: Unremarkable. No acute displaced rib fracture. IMPRESSION: No acute findings.
--- NOTE | 2021-07-02 01:23 | ECG_ITS ---
APPROVED REPORT Exam: Resting ECG HR:124 bpm ECG Measurements Heart Rate 124 AXES ND 100 P 68 QRSd 60 QRS 85 QT 296 T 50 QTc 425 Conclusion Sinus tachycardia with short ND Otherwise normal ECG Electronically signed by : Chucky Mao MD 07/02/2021 08:56:52
[2021-07-02 01:37] LABS: Basophils # 0.1 K/mm3 (0-0.2); Basophils % 0.4 % (0.1-2.0); Eosinophils # 0.3 K/mm3 (0.0-0.4); Eosinophils % 1.2 % (0.1-12.0); Red Cell Distribution Width 12.6 % (11.5-17.5)
[2021-07-02 01:38] LABS: Alanine Aminotransferase 34 U/L (12-78); Albumin Level 4.6 g/dl (3.5-5.0); Albumin/Globulin Ratio 1.6 (1.1-1.8); Alkaline Phosphatase 86 U/L (38-126); Anion Gap 20.6 mEq/L (5-15); Aspartate Amino Transferase 30 U/L (14-36); Bilirubin,Total 0.6 mg/dl (0.2-1.3); Blood Urea Nitrogen 13 mg/dl (7-17); Calcium 9.2 mg/dl (8.4-10.2); Carbon Dioxide 17 mmol/L (22.0-30.0); Chloride 106 mmol/L (98-107); Creatinine Clearance Estimated 78 mL/min (50-200); Estimated Glomerular Filt Rate 86 ml/min (>60); GFR (African American) 104 ML/MIN (>60); Globulin 2.9 g/dL (1.3-3.2); Glucose 115 mg/dl (74-100); Potassium 3.6 mmoL/L (3.5-5.1); Sodium 140 mmol/L (136-145); Total Protein,Serum 7.5 g/dl (6.3-8.2)
[2021-07-02 01:40] VITALS: BP 146/99; PULSE 130; RESP 30; TEMP 37.2; O2SAT 99; BMI 18.2
[2021-07-02 01:42] LABS: Hematocrit 44.7 % (37.0-47.0); Hemoglobin 15.4 g/dL (12.2-16.2); Lymphocytes % 7.8 % (10-50); Mean Corpuscular HGB Conc 34.4 g/dL (31.8-35.4); Mean Corpuscular Hemoglobin 32.6 pg (27.0-31.2); Mean Corpuscular Volume 94.6 fl (81-99); Mean Platelet Volume 8.4 fl (7.4-10.4); Monocytes # 0.9 K/mm3 (0.1-1.0); Monocytes % 3.4 % (1.7-9.3); Neutrophils # 22.7 K/mm3 (1.8-7.8); Neutrophils % 87.3 % (37.0-80.0); Platelet Count 308 K/mm3 (142-424); Red Blood Count 4.72 M/mm3 (4.20-5.40)
[2021-07-02 01:43] LABS: Adenovirus,PCR Not Detected (NotDetected); Bordetella Pertussis Not Detected (NotDetected); Chlamydophila Pneumoniae, PCR Not Detected (NotDetected); Coronavirus 19, PCR Not Detected (NotDetected); Coronavirus 229E Not Detected (NotDetected); Coronavirus NL63 Not Detected (NotDetected); Coronavirus OC43 Not Detected (NotDetected); Coronovirus HKU1,PCR Not Detected (NotDetected); Human Metapneumovirus Not Detected (NotDetected); Influenza A, PCR Not Detected (NotDetected); Influenza AH1, 2009 Not Detected (NotDetected); Influenza AH1, PCR Not Detected (NotDetected); Influenza AH3,PCR Not Detected (NotDetected); Influenza B, PCR Not Detected (NotDetected); Mycoplasma Pneumoniae, PCR Not Detected (NotDetected); Parainfluenza 1, PCR Not Detected (NotDetected); Parainfluenza 2, PCR Not Detected (NotDetected); Parainfluenza 3, PCR Not Detected (NotDetected); Parainfluenza 4, PCR Not Detected (NotDetected); Respiratory Syncytial Virus Not Detected (NotDetected)
--- NOTE | 2021-07-02 01:43 | HMH.EDGENADL ---
ED Disposition Clinical Impression: Upper respiratory infection, Acute bronchitis Disposition: Home, Self-Care Condition on Discharge: Good Instructions: DI for Acute Bronchitis Additional Instructions: Stop smoking. Medication as directed. Return to the emergency for any new symptoms. Prescriptions: Albuterol Sulfate [Albuterol Sulfate Hfa] 18 gm IH TID 14 Days #1 hfa.aer.ad Transmission Status: Pending to [facility] levoFLOXacin [Levaquin 500mg tab] 500 mg PO DAILY 10 Days #10 tab Transmission Status: Pending to [facility] Benzonatate [Tessalon Perle 100mg Cap*] 100 mg PO TID PRN 10 Days #30 cap PRN Reason: Cough Transmission Status: Pending to [facility] Referrals: Provider,Referral, [Primary Care Provider] - - Critical Care Critical Care Time: No Attestation: On 07/02/21, the high probability of a clinically significant, sudden or life threatening deterioration of the following system(s) required my full and direct attention, intervention and personal management. The time I documented below is in addition to time spent performing reported procedures but includes the following listed in this critical care notation. Medical Decision Making - Medical Records MR Comment: Negative covid 19. Respiratory panel was positive for rhinovirus. She has leukocytosis due to having surgery 3 days ago, utrine ablation. - Tej Inquiry Pt receiving controlled substance: No Tej was queried for this patient: No Vital Signs: 07/02/21 01:40 Temperature 99.0 F Temperature Source Oral Pulse Rate [Right] 130 H Respiratory Rate 30 H Blood Pressure [Right Arm] 146/99 H Blood Pressure Mean [Right Arm] 114 Blood Pressure Source [Right Arm] Automatic Cuff Blood Pressure Position [Right Arm] Supine 02 Sat by Pulse Oximetry 99 Oxygen Delivery Method Room Air - Lab Data Lab Results 07/02/21 01:15: WBC 26.1 H*, RBC 4.72, Hgb 15.4, Hct 44.7, MCV 94.6, MCH 32.6 H, MCHC 34.4, RDW 12.6, Plt Count 308, MPV 8.4, Neut % (Auto) 87.3 H, Lymph % (Auto) 7.8 L, Dewitt % (Auto) 3.4, Eos % (Auto) 1.2, Baso % (Auto) 0.4, Neut # (Auto) 22.7 H, Lymph # (Auto) 2.0, Dewitt # (Auto) 0.9, Eos # (Auto) 0.3, Baso # (Auto) 0.1, Total Counted 100, Neutrophils % (Manual) 83 H, Band Neutrophils % 3.0, Lymphocytes % (Manual) 11, Eosinophils % (Manual) 3, Platelet Estimate Normal, RBC Morphology Normal 07/02/21 01:15: Sodium 140, Potassium 3.6, Chloride 106, Carbon Dioxide 17 L, Anion Gap 20.6 H, BUN 13, Creatinine 0.80, Estimated Creat Clear 78, Estimated GFR 86, Est GFR ( Amer) 104, Glucose 115 H, Calcium 9.2, Total Bilirubin 0.6, AST 30, ALT 34, Alkaline Phosphatase 86, Total Protein 7.5, Albumin 4.6, Globulin 2.9, Albumin/Globulin Ratio 1.6 07/02/21 01:35: Chlamy pneumoniae PCR Not detected, Adenovirus (PCR) Not detected, B. pertussis DNA (PCR) Not detected, Coronavirus OC43 (PCR) Not detected, Coronavirus HKU1 (PCR) Not detected, Coronavirus 229E (PCR) Not detected, SARS-CoV-2 (PCR) Not detected, Coronavirus NL63 (PCR) Not detected, Human Metapneumovir PCR Not detected, Influenza A (H1) PCR Not detected, Influ A (H1N1/09) PCR Not detected, Influenza A (H3) PCR Not detected, Influenza Type A (PCR) Not detected, Influenza Type B (PCR) Not detected, M. pneumoniae (PCR) Not detected, Parainfluenza 1 (PCR) Not detected, Parainfluenza 2 (PCR) Not detected, Parainfluenza 3 (PCR) Not detected, Parainfluenza 4 (PCR) Not detected, RSV (PCR) Not detected, Entero/Rhino (PCR) Detected A 07/02/21 03:45: Urine Color Yellow, Urine Appearance Clear, Urine pH 6.5, Ur Specific Jewett 1.015, Urine Protein Trace, Urine Glucose (UA) Negative, Urine Ketones 1+, Urine Blood Trace-i, Urine Nitrate Negative, Urine Bilirubin Negative, Urine Urobilinogen 1.0, Ur Leukocyte Esterase 1+ A, Urine RBC 3-5, Urine WBC 10-20, Amorphous Sediment Trace, Urine Mucus 4+ Result diagrams: 07/02/21 01:15 07/02/21 01:15 Orders (Tests/Meds): ED MEDICATIONS
[2021-07-02 01:44] LABS: White Blood Count 26.1 K/mm3 (4.8-10.8)
[2021-07-02 01:45] LABS: MANUAL DIFFERENTIAL MANUAL DIFFERENTIAL (MANUAL DIFF)
[2021-07-02 01:57] LABS: Eosinophils % 3 % (0-3); Lymphocytes % 11 % (10-50); Neutrophils % 83 % (42-76); Platelet Estimate Normal; RBC Morphology Normal; Total Cells Counted 100
[2021-07-02 02:30] VITALS: BP 99/49; PULSE 98; O2SAT 95
[2021-07-02 03:00] VITALS: BP 99/54; PULSE 96; O2SAT 97
[2021-07-02 03:04] LABS: Rhinovirus/Enterovirus Detected (NotDetected)
[2021-07-02 03:30] VITALS: BP 98/59; PULSE 95; O2SAT 97
[2021-07-02 03:57] LABS: Microscopic, Urine URINE MICROSCOPIC (MICROSCOPIC)
[2021-07-02 03:58] LABS: Appearance,Urine CLEAR (Clear); Blood, Urine TRACE-I (Negative); Color,Urine YELLOW (Yellow); Glucose,Urine (UA) Negative (Negative); Ketones,Urine 1+ (Negative); Leukocyte Esterase,Urine 1+ (Negative); Nitrate,Urine Negative (Negative); PH,Urine 6.5 (5.0-8.5); Protein,Urine TRACE (Negative); Specific Gravity, Urine 1.015 (1.005-1.030)
[2021-07-02 04:02] LABS: Amorphous Sediment,Urine Trace /lpf; Bilirubin,Urine Negative (Negative); Mucus,Urine 4+ /lpf
[2021-07-02 04:37] VITALS: BP 101/62; PULSE 97; RESP 18; TEMP 37.1; O2SAT 98
== END 2021-07-02 04:43 | disposition home or self-care (01) ==
PROVIDERS: Emergency Provider Internal Medicine
DX: J20.9 Acute bronchitis, unspecified (principal); N39.0 Urinary tract infection, site not specified; Z20.822 Contact with and (suspected) exposure to COVID-19; F17.210 Nicotine dependence, cigarettes, uncomplicated
CPT/HCPCS: 71045; 80053; 81001; 85007; 85025; 87086; 87088; 87186; 87581; 87633; 87798; 93005; 96365; 96366; 96375; 99284; J2405

== ENCOUNTER → 2021-08-07 17:11 | Outpatient (CLI) | payer MEDICAID, SELFPAY ==
[2021-08-10 09:19] LABS: Neisseria gonorrhoeae, NAA Negative (Negative)
== END ==
PROVIDERS: Visit Provider Nurse Practitioner Obstetrics & Gynecology
DX: Z72.51 High risk heterosexual behavior (principal)
CPT/HCPCS: 87491; 87591

== ENCOUNTER 2022-05-28 13:16 | Emergency (ER) | payer MEDICAID, SELFPAY ==
--- NOTE | 2022-05-28 13:50 | PC.NURSE ---
Brought pt into triage room, obtained vitals. Updated pt on POC and that currently there were no beds available in the ED but we would get her back as soon as one became available. PT agreeable with POC at this time. No new needs. 132/70 HR-77 O2 sats-99% on room air
[2022-05-28 14:10] VITALS: BP 110/68; PULSE 67; RESP 19; TEMP 36.8; O2SAT 97; BMI 17.5
[2022-05-28 14:21] LABS: Apearance,Urine Clear (Clear); Bilirubin,Urine Negative (Negative); Blood, Urine Negative (Negative); Color,Urine Yellow (Yellow); Glucose,Urine (UA) Negative (Negative); Ketones,Urine Negative (Negative); Protein,Urine Negative (Negative); UTC Leukocyte Esterase,Urine Negative (Negative); UTC Nitrate,Urine Negative (Negative); UTC Pregnancy Test, Urine Negative (Negative); Urobilinogen,Urine 0.2 EU/dl (0.2)
--- NOTE | 2022-05-28 14:31 | HMH.EDUTC ---
[facility] Disposition Clinical Impression: Patient left without being seen Abdominal pain Qualifiers: Abdominal location: unspecified location Qualified Code(s): R10.9 - Unspecified abdominal pain Disposition: Left Against Medical Advice Condition on Discharge: Good Referrals: Thelma Blake [Primary Care Provider] - Time of Disposition: 14:42 Medical Decision Making - Tej Inquiry Pt receiving controlled substance: No Tej was queried for this patient: No Vital Signs: 05/28/22 14:10 05/28/22 14:38 Temperature 98.3 F 98.3 F Temperature Source Oral Pulse Rate 67 Pulse Rate [Right Brachial] 67 Respiratory Rate 19 19 Blood Pressure 110/68 Blood Pressure [Right Arm] 110/68 Blood Pressure Mean [Right Arm] 82 Blood Pressure Source [Right Arm] Automatic Cuff Blood Pressure Position [Right Arm] Sitting 02 Sat by Pulse Oximetry 97 Oxygen Delivery Method Room Air - Lab Data Lab results reviewed: Yes: I reviewed the patient's lab results. Lab Results 05/28/22 14:07: Urine Color Yellow, Urine Appearance Clear, Urine pH 7.0, Ur Specific [place] 1.030, Urine Protein Negative, Urine Glucose (UA) Negative, Urine Ketones Negative, Urine Blood Negative, Urine Nitrate Negative, Urine Bilirubin Negative, Urine Urobilinogen 0.2, Ur Leukocyte Esterase Negative, Tst Clinic Negative Medical Decision Narrative: Discussed with patient and due to having abdominal pain shooting into her back and pain has continued to get worse Due to having lower abdominal pain patient would be transferred to the ED for further evaluation of treatment and patient agreed Called ED no bed at this time will hold her in the [facility] until bed available Patient walked out of [facility] states that she changed her mind and did not want to wait she would go somewhere else Advised patient that testing could be started in [facility] and finished in ED when bed available and patient refused and signed AMA [facility] HPI - General Stated complaint: lower abd/back pain, nausea Time Seen by Provider: 05/28/22 14:20 Mode of Arrival: Ambulatory Source of Information: Patient Limitations: No Limitations Description of Symptoms (Recalled from Triage Doc. by RN): PATIENT C/O ABDOMINAL PAIN AND LEFT FLANK PAIN THAT STARTED LAST NIGHT HEENT Symptoms (Recalled from RN notes): No Resp Symptoms (Recalled from RN notes): No Skin Symptoms (Recalled from RN notes): No MS Symptoms (Recalled from RN notes): No Functional Status (Recalled from RN notes): WNL - History of Present Illness Provider Complaint: Patient states that she started last night having pain in her lower left abdomen States that pain is shooting into her left lower back States that it has continued to get worse today so she came in - Related Data Home Medications Medication Instructions Recorded Confirmed sumatriptan succinate 100 mg tablet ea PO 07/10/21 08/07/21 Previous Rx's Medication Instructions Recorded Albuterol Sulfate [Albuterol 18 gm IH TID 14 Days #1 hfa.aer.ad 07/02/21 Sulfate Hfa] metronidazole 500 mg tablet 500 mg PO BID 5 Days #10 tab 08/25/21 Allergies Allergy/AdvReac Type Severity Reaction Status Date / Time morphine [MORPHINE] Allergy Unknown Verified 08/07/21 11:18 oxycodone [From PERCOCET] Allergy Unknown Verified 08/07/21 11:18 - Worker's Comp Is this a Worker's Comp case?: No [facility] History - Hepatitis A Screen Attestation statement:: This patient has been screened for Hepatitis A risk factors. I have reviewed the patient's past medical history: Yes Medical History: Reports:: Anxiety, Nephritis Denies:: Cancer, Depression, Diabetes Mellitus Type 1, Diabetes Mellitus Type 2, Hyperlipidemia, Hypertension, Internal Pacemaker, Migraine, MRSA, Seizures Other Medical History: Denies: Blood Transfusion Reaction Other Surgeries: Yes: Cholecystectomy, , Dilation and Curettage, Tubal Ligation, Other. No: Pacemaker Amputation: No Fractures: No Comm
[2022-05-28 14:38] VITALS: BP 110/68; PULSE 67; RESP 19; TEMP 36.8; O2SAT 97
== END 2022-05-28 14:40 | disposition left against medical advice (07) ==
LOC: UTC 14:07
PROVIDERS: Emergency Provider Nurse Practitioner; PCP Family Medicine
DX: R10.9 Unspecified abdominal pain (principal); Z53.29 Procedure and treatment not carried out because of patient's decision for other reasons
CPT/HCPCS: 81003; 81025; 99211; G0463

== ENCOUNTER 2022-06-28 18:59 | Emergency (ER) | payer MEDICAID, SELFPAY ==
--- NOTE | 2022-06-28 19:39 | HMH.EDUTC ---
[facility] Disposition Clinical Impression: Viral syndrome, Exposure to COVID-19 virus Disposition: Home, Self-Care Condition on Discharge: Good Instructions: DI for Viral Syndrome, Preventing the Spread of Coronavirus Discharge Instructions, DI for COVID-19 (Suspected or Confirmed ) Additional Instructions: Drink plenty of fluids. Take tylenol or ibuprofen for pain or fever. Take the medications as directed. Follow up with your regular doctor. GO TO THE ER FOR ANY WORSENING SYMPTOMS Quarantine until you know the results of your covid-19 test. Notify your school or workplace of your results and follow their instructions regarding return to work/school. Prescriptions: Brompheniramine/Pseudoephed/Dm [Bromfed Dm Cough Syrup] 5 ml PO Q6HP PRN #240 ml PRN Reason: Cough Transmission Status: Pending to [facility] Ondansetron [Zofran 4mg ODT] 4 mg PO Q8HP PRN #12 tab PRN Reason: Nausea Transmission Status: Pending to [facility] Benzonatate [Benzonatate 100mg cap] 100 mg PO TIDP PRN #30 cap PRN Reason: Cough Transmission Status: Pending to [facility] Referrals: Thelma Blake [Primary Care Provider] - Forms: Work/School Release Time of Disposition: 19:47 Medical Decision Making - Medical Records Medical records reviewed: No: I reviewed the patient's medical records. - Tej Inquiry Pt receiving controlled substance: No - Lab Data Lab results reviewed: Yes: I reviewed the patient's lab results. [facility] HPI - General Stated complaint: lower back, body aches, vomitting, SIM Time Seen by Provider: 06/28/22 19:39 - History of Present Illness Provider Complaint: She states that she has felt bad since this morning. She has body ache, chills, low grade fever, dry cough and she has felt very bad. She has been exposed to covid-19 by her children having it. - Related Data Home Medications Medication Instructions Recorded Confirmed sumatriptan succinate 100 mg tablet ea PO 07/10/21 08/07/21 Previous Rx's Medication Instructions Recorded Albuterol Sulfate [Albuterol 18 gm IH TID 14 Days #1 hfa.aer.ad 07/02/21 Sulfate Hfa] metronidazole 500 mg tablet 500 mg PO BID 5 Days #10 tab 08/25/21 Benzonatate [Benzonatate 100mg 100 mg PO TIDP PRN #30 cap 06/28/22 cap] Brompheniramine/Pseudoephed/Dm 5 ml PO Q6HP PRN #240 ml 06/28/22 [Bromfed Dm Cough Syrup] Ondansetron [Zofran 4mg ODT] 4 mg PO Q8HP PRN #12 tab 06/28/22 Allergies Allergy/AdvReac Type Severity Reaction Status Date / Time morphine [MORPHINE] Allergy Unknown Verified 08/07/21 11:18 oxycodone [From PERCOCET] Allergy Unknown Verified 08/07/21 11:18 [facility] History - Hepatitis A Screen Attestation statement:: This patient has been screened for Hepatitis A risk factors. I have reviewed the patient's past medical history: Yes Medical History: Reports:: Anxiety, Nephritis Denies:: Cancer, Depression, Diabetes Mellitus Type 1, Diabetes Mellitus Type 2, Hyperlipidemia, Hypertension, Internal Pacemaker, Migraine, MRSA, Seizures Other Medical History: Denies: Blood Transfusion Reaction Other Surgeries: Yes: Cholecystectomy, , Dilation and Curettage, Tubal Ligation, Other. No: Pacemaker Amputation: No Fractures: No Comment: D&E 2012. Tubal. Hysteroscopy Dilation $ Curettage Novasure ablation 06/2021 - Social History Smoking Status: Current every day smoker Tobacco Type: cigarettes # Packs/Day (cigarettes): 1 Alcohol Intake: never Alcohol Intake Frequency:: other Substance Use Type: denies use Occupational Status: other Housing: house Household Members: family - Psychiatric History Pschychiatric History:: Reports:: Anxiety Denies:: Depression Family Hx:: Unable to obtain Comment: Children Alive. Father Alive. Mother Alive. Siblings 2 brothers,1 sister,-healthy, 2 daughters [employer] history: Spontaneous Comment: #3-Miscarriage. #6- Complication
[2022-06-28 19:47] LABS: UTC Strep Screen (Rapid) Negative (Negative)
[2022-06-28 19:50] VITALS: BP 115/56; PULSE 107; RESP 20; TEMP 37.4; O2SAT 100; BMI 17.6
[2022-06-28 20:05] VITALS: BP 115/56; PULSE 107; RESP 20; TEMP 37.4
== END 2022-06-28 20:06 | disposition home or self-care (01) ==
PROVIDERS: Emergency Provider Nurse Practitioner Family; PCP Family Medicine
DX: U07.1 COVID-19 (principal); M54.50 Low back pain, unspecified; M79.10 Myalgia, unspecified site; R51.9 Headache, unspecified; R11.10 Vomiting, unspecified; F41.9 Anxiety disorder, unspecified; F17.210 Nicotine dependence, cigarettes, uncomplicated; Z79.51 Long term (current) use of inhaled steroids; Z79.899 Other long term (current) drug therapy; Z88.0 Allergy status to penicillin; Z88.5 Allergy status to narcotic agent; Z88.6 Allergy status to analgesic agent; Z88.8 Allergy status to other drugs, medicaments and biological substances
CPT/HCPCS: 87880; 99213; C9803; G0463; U0003; U0005

== ENCOUNTER 2022-12-26 20:49 | Emergency (ER) | payer MEDICAID, SELFPAY ==
[2022-12-26] VITALS (9 sets, daily range): BP systolic 88–118; BP diastolic 55–71; PULSE 71–94; RESP 16–21; TEMP 36.6–36.7; O2SAT 95–100; BMI 19.5
[2022-12-26 21:04] LABS: Coronavirus 19, PCR Not Detected (NotDetected); Influenza A, PCR Not Detected (NotDetected); Influenza B, PCR Not Detected (NotDetected)
--- NOTE | 2022-12-26 21:22 | HMH.EDNVD ---
Discharge Plan Disposition Patient Disposition: Home, Self-Care Prescriptions Prescriptions: New ondansetron HCl 4 mg Tablet 4 mg PO Q8H PRN (Reason: Nausea) Qty: 20 0RF Referrals Follow up/Referrals: Thelma Blake [Primary Care Provider] - See instructions Clinical Impressions Clinical Impression: Gastroenteritis Instructions Patient Instructions: DI for Diarrhea and Traveler's Diarrhea -- Adult, DI for Diarrhea and Traveler's Diarrhea -- Child, DI for Nausea -- Adult, DI for Nausea -- Child Discharge ED Provider: Erlin (ED)Adilson Nausea/Vomiting/Diarrhea HPI General Chief complaint: Nausea/Vomiting/Diarrhea Stated complaint: Nausea/Vomiting Time Seen by Provider: 12/26/22 21:23 Mode of Arrival: EMS Source of Information: Patient, Spouse, EMS and Medical Record Limitations: No Limitations Description of Symptoms (Recalled from ER Triage Doc. by RN): 27 F arrives via EMS for constant nausea/vomiting and mid abominal pain. Patient denies fever or chills. Patient reports symptoms started this AM after waking up. She tried to take Zofran, Phenergan, and OTC medications without relief. History of Present Illness HPI Narrative: pt with abd pain with n/v since 1500 - no fever or other c/o MD complaint: nausea and vomiting Onset (ago): hour(s) Associated Abdominal Pain: Yes Location of pain: diffuse Severity: moderate Associated symptoms: denies other symptoms Related Data Previous Rx's Medication Instructions Recorded ondansetron HCl 4 mg tablet 4 mg PO Q8H PRN Nausea #20 tabs 12/27/22 Allergies Allergy/AdvReac Type Severity Reaction Status Date / Time morphine [MORPHINE] Allergy Unknown Verified 06/28/22 19:55 oxycodone [From PERCOCET] Allergy Unknown Verified 06/28/22 19:55 PFSH PFS Disclaimer: The information contained in this section may have been updated after the patient was seen, as this information can be updated by other users. Social History Smoking Status: Current every day smoker tobacco type: cigarettes packs per day: 1 second hand exposure: No alcohol intake: never substance use type: denies use current occupational status: other Travel in the last 8 weeks: None household members: family housing: house current occupational exposures/hazards: No caffeine: Yes ROS Obtained: Yes All systems reviewed & no additional complaints except as documented Physical Exam General General appearance: alert Head Head exam: normocephalic Eye Eye exam: Present PERRL and EOMI ENT ENT exam: Present mucous membranes moist Neck Neck exam: Present trachea midline Respiratory Respiratory exam: Present normal lung sounds bilaterally; Absent respiratory distress Cardiovascular Cardiovascular exam: Present regular rate Abdominal Exam Abdominal exam: Present soft and tenderness; Absent guarding or rebound Extremities Exam Extremities exam: Present full ROM Neurological Exam Neurological exam: Present alert, oriented X3 and CN II-XII intact; Absent motor sensory deficit Psychiatric Psychiatric exam: Present normal affect Skin Skin exam: Absent rash Medical Decision Making Medical Records Medical records reviewed: Yes I reviewed the patient's medical records. Tej Inquiry Pt receiving controlled substance: No Vital Signs: 12/26/22 20:49 12/26/22 21:01 12/26/22 21:30 Temperature 98.1 F Temperature Source Oral Pulse Rate 80 90 Pulse Rate [Left] 71 Respiratory Rate 21 20 16 Blood Pressure 92/56 L 103/61 L Blood Pressure [Right Arm] 118/71 Blood Pressure Mean 68 65 Blood Pressure Mean [Right Arm] 86 Blood Pressure Source Blood Pressure Source [Right Arm] Automatic Cuff Blood Pressure Position Blood Pressure Position [Right Arm] Supine 02 Sat by Pulse Oximetry 99 95 100 Oxygen Delivery Method Room Air 12/26/22 21:57 12/26/22 22:00 12/26/22 22:31 Temperature Temperature Source Pulse Rate 92 H 94 H 76 Pulse Rate [
[2022-12-26 21:35] LABS: Basophils # 0.1 K/mm3 (0-0.2); Basophils % 0.3 % (0.1-2.0); Eosinophils # 0.2 K/mm3 (0.0-0.4); Eosinophils % 1.2 % (0.1-12.0); Lymphocytes # 0.4 K/mm3 (0.7-4.5); Lymphocytes % 2.5 % (10-50); Mean Corpuscular Volume 94.2 fl (81-99); Mean Platelet Volume 8.6 fl (7.4-10.4); Monocytes # 0.5 K/mm3 (0.1-1.0); Monocytes % 2.7 % (1.7-9.3); Neutrophils # 16.1 K/mm3 (1.8-7.8); Neutrophils % 93.2 % (37.0-80.0); Platelet Count 281 K/mm3 (142-424); Red Blood Count 4.99 M/mm3 (4.20-5.40); Red Cell Distribution Width 12.4 % (11.5-17.5); White Blood Count 17.3 K/mm3 (4.8-10.8)
[2022-12-26 21:38] LABS: MANUAL DIFFERENTIAL MANUAL DIFFERENTIAL (MANUAL DIFF)
[2022-12-26 21:39] LABS: HCG Qualitative, Serum Negative (Negative)
--- NOTE | 2022-12-26 21:41 | CT_ITS ---
PROCEDURE INFORMATION: Exam: CT Abdomen And Pelvis With Contrast Exam date and time: 12/26/2022 9:50 PM Age: 27 years old Clinical indication: Nausea and vomiting; Abdominal pain; Generalized; Additional info: Abdominal pain with n/v TECHNIQUE: Imaging protocol: Computed tomography of the abdomen and pelvis with contrast. Radiation optimization: All CT scans at this facility use at least one of these dose optimization techniques: automated exposure control; mA and/or kV adjustment per patient size (includes targeted exams where dose is matched to clinical indication); or iterative reconstruction. Contrast material: ISOVUE; Contrast volume: 75 ml; Contrast route: IV; Other protocol: This patient has received 0 known CTs and 0 known cardiac nuclear medicine studies in the 12 months prior to the current study. COMPARISON: 1. MR ABDOMEN WO CON 01/27/2021 10:[address] ABDOMEN PELVIS W CON 12/16/2020 6:01 AM FINDINGS: Lungs: Lung bases are clear. Liver: Liver demonstrates small area of low attenuation along the fissure for ligamentum teres most compatible with focal fatty deposition. Liver is otherwise unremarkable. Gallbladder and bile ducts: Status post cholecystectomy. Minimal prominence of the intrahepatic biliary ducts likely secondary to cholecystectomy, unchanged. No calcified stones. Pancreas: Pancreas is normal. No ductal dilatation. Spleen: Spleen is normal. Adrenal glands: Adrenal glands are normal. No mass. Kidneys and ureters: Kidneys are normal. No renal stones seen. No hydronephrosis or hydroureter. Stomach and bowel: Colon is nondistended which limits evaluation for wall thickening. There is scattered fluid within the colon. No dilated bowel or evidence of bowel obstruction. Appendix: No evidence of appendicitis. Intraperitoneal space: No free air. No significant fluid collection. Vasculature: No acute abnormality. No abdominal aortic aneurysm. Prominent pelvic veins, [id number], which can be seen with pelvic venous congestion syndrome in the appropriate clinical setting. Lymph nodes: No enlarged lymph nodes. Urinary bladder: Urinary bladder is nondistended. Reproductive: Unremarkable as visualized. Bones/joints: No acute osseous abnormality or suspicious osseous lesion. Soft tissues: Unremarkable. IMPRESSION: 1. Fluid noted within the colon which can be seen with nonspecific diarrheal illness. No bowel obstruction. 2. Prominent pelvic veins which can be seen with pelvic venous congestion syndrome in the appropriate clinical setting. 3. Other chronic and incidental findings as detailed above.
[2022-12-26 21:42] LABS: Alanine Aminotransferase 28 U/L (12-78); Albumin Level 5.2 g/dl (3.5-5.0); Albumin/Globulin Ratio 1.4 (1.1-1.8); Alkaline Phosphatase 76 U/L (38-126); Amylase 74 U/L (30-110); Anion Gap 16.9 mEq/L (5-15); Aspartate Amino Transferase 38 U/L (14-36); Bilirubin,Total 1.8 mg/dl (0.2-1.3); Blood Urea Nitrogen 19 mg/dl (7-17); Calcium 9.6 mg/dl (8.4-10.2); Carbon Dioxide 21 mmol/L (22.0-30.0); Chloride 106 mmol/L (98-107); Creatinine Clearance Estimated 73 mL/min (50-200); Estimated Glomerular Filt Rate 75 ml/min (>60); GFR (African American) 90 ML/MIN (>60); Globulin 3.6 g/dL (1.3-3.2); Glucose 158 mg/dl (74-100); Lipase 38 U/L (23-300); Magnesium 1.9 mg/dl (1.6-2.3); Potassium 4.9 mmoL/L (3.5-5.1); Sodium 139 mmol/L (136-145); Total Protein,Serum 8.8 g/dl (6.3-8.2)
[2022-12-26 21:52] LABS: Microscopic, Urine URINE MICROSCOPIC (MICROSCOPIC)
[2022-12-26 21:56] LABS: Appearance,Urine CLEAR (Clear); Blood, Urine TRACE-I (Negative); Color,Urine YELLOW (Yellow); Glucose,Urine (UA) Negative (Negative); Ketones,Urine 3+ (Negative); Leukocyte Esterase,Urine Negative (Negative); Nitrate,Urine Negative (Negative); Protein,Urine 2+ (Negative); Specific Gravity, Urine 1.025 (1.005-1.030); Urobilinogen,Urine 0.2 EU/dl (0.2)
[2022-12-26 22:07] LABS: Bilirubin,Urine 2+ (Negative)
[2022-12-26 22:08] LABS: Barbiturates Screen,Urine Negative ng/ml (<200); Benzodiazepines Screen,Urine Negative ng/ml (<200)
[2022-12-26 22:09] LABS: Amphetamine/Metha Screen,Urine Negative ng/ml (<1000)
[2022-12-26 22:10] LABS: Cannabinoid Screen,Urine Positive ng/ml (<50); Cocaine Screen,Urine Negative ng/ml (<300)
[2022-12-26 22:11] LABS: Methadone Screen,Urine Negative ng/ml (<300)
[2022-12-26 22:12] LABS: Opiate Screen,Urine Negative ng/ml (<300); Phencyclidine Screen,Urine Negative ng/ml (<25)
[2022-12-26 22:32] LABS: Bacteria,Urine Trace /lpf; RBC,Urine Occasional #/hpf (0-3); WBC,Urine Occasional #/hpf (0-3)
[2022-12-26 22:44] LABS: Lymphocytes % 7 % (10-50); Monocytes % 2 % (2-9); Neutrophils % 91 % (42-76); Total Cells Counted 100
[2022-12-26 22:45] LABS: Platelet Estimate Normal; RBC Morphology Normal
--- NOTE | 2022-12-26 23:57 | PC.NURSE ---
rounded on patient at this time. Updated patient and family member about POC and that MD was reviewing the chart and would be in shortly. Pt was able to sit up in bed. She tolerated PO challenge and was able to drink Gatorade and ginger mist.
== END 2022-12-27 00:12 | disposition home or self-care (01) ==
PROVIDERS: Emergency Provider Emergency Medicine; PCP Family Medicine
DX: K52.9 Noninfective gastroenteritis and colitis, unspecified (principal); F17.210 Nicotine dependence, cigarettes, uncomplicated; Z20.822 Contact with and (suspected) exposure to COVID-19
CPT/HCPCS: 74177; 80053; 80305; 81001; 82150; 83690; 83735; 84703; 85007; 85025; 96361; 96374; 96375; 99285; C9803; J2405; Q9967; U0003; U0005

== ENCOUNTER → 2023-05-27 15:42 | Outpatient (CLI) | payer MEDICAID, SELFPAY ==
--- NOTE | 2023-05-27 15:42 | US_ITS ---
PROCEDURE: US TRANSVAGINAL CLINICAL INDICATION: pelvic pain COMPARISON: US US TRANSVAGINAL from 05/22/2021 FINDINGS: Transvaginal sonographic images of the pelvis were obtained. UTERUS: 7cm x 4cmx 4cm with a combined endometrial thickness of 3.6mm. Post ablation changes noted. section scar visible. There is a fibroid in the posterior uterus measuring 1.6 cm x 1.7 cm x 1.6 cm. LEFT OVARY: [id number] with a volume of 4.5ml.There are several small follicles. RIGHT OVARY: 4cmx [id number] with a volume of 7.7ml. There are several small follicles. Both ovaries are seen and appear normal. Doppler flow to both ovaries are seen. There is no fluid in the cul-de-sac. IMPRESSION: 1. Anteverted normal size uterus. There are post ablation changes. There is a 1.7 cm posterior fibroid. Ultrasound done 1 year ago did not show a fibroid. Endometrium is thin. 2. Both ovaries appear normal and have several small follicles. 3. No fluid in the cul-de-sac. Dictated by: Luis Ferrell MD 05/27/2023 19:37 Luis Ferrell MD in [place] 05/27/2023 19:37
== END ==
PROVIDERS: PCP Family Medicine; Visit Provider Nurse Practitioner Obstetrics & Gynecology
DX: R10.2 Pelvic and perineal pain (principal); R10.30 Lower abdominal pain, unspecified
CPT/HCPCS: 76830

== ENCOUNTER 2023-08-22 23:52 | Emergency (ER) | payer MEDICAID, SELFPAY ==
[2023-08-22 23:55] VITALS: BP 139/87; PULSE 90; RESP 22; TEMP 36.6; O2SAT 99; BMI 19.1
--- NOTE | 2023-08-23 00:03 | HMH.EDGENADL ---
Discharge Plan Disposition Patient Disposition: Home, Self-Care Prescriptions Prescriptions: New lidocaine 5 % adhesive patch,medicated 1 patch topical DAILY PRN (Reason: pain) Qty: 30 0RF Rx Instructions: leave on most painful area for up to 12 hrs No Action buspirone 5 mg tablet 5 mg PO BID Qty: 60 2RF escitalopram oxalate [Lexapro] 10 mg tablet 10 mg PO DAILY Qty: 30 3RF Referrals Follow up/Referrals: Thelma Blake [Primary Care Provider] - See instructions Activity Restrictions/Add. Instructions Additional Instructions/Restrictions: Please take Tylenol and ibuprofen at home as needed for pain. Please use lidocaine patches as needed. Use sling as needed for comfort. No evidence of bony or joint injury on x-rays. Please follow-up with your primary care provider. Please return to the emergency department if you develop any new or worsening symptoms or become concerned for your health. Clinical Impressions Clinical Impression: Traumatic ecchymosis of left shoulder Discharge ED Provider: Keshav Gonsalez General Adult HPI General Chief complaint: Extremity Injury, Upper Stated complaint: accident/left shoulder pain Time Seen by Provider: 08/23/23 00:01 History of Present Illness HPI narrative: 28-year-old female, history of depression, presents with left shoulder pain. She reports that her and her friends were trying to break a 2 x 4 by jumping on it. When it finally broke, it shot up and hit her in the anterior left shoulder/chest. She reports it is severely painful. Pain with palpation, pain with range of motion. She denies that hit her head, denies loss of conscious. She reports some shooting pain and tingling in her left arm. Related Data Previous Rx's Medication Instructions Recorded buspirone 5 mg tablet 5 mg PO BID #60 tabs 04/11/23 escitalopram oxalate 10 mg tablet 10 mg PO DAILY #30 tabs 04/11/23 (Lexapro) lidocaine 5 % topical patch 1 patch topical DAILY PRN pain #30 08/23/23 ea Allergies Allergy/AdvReac Type Severity Reaction Status Date / Time morphine [MORPHINE] Allergy Unknown Verified 05/16/23 14:00 oxycodone [From PERCOCET] Allergy Unknown Verified 05/16/23 14:00 [facility] Disclaimer: The information contained in this section may have been updated after the patient was seen, as this information can be updated by other users. Medical History Leukocytosis SIRS (systemic inflammatory response syndrome) Temporomandibular syndrome Surgical History Delivery by section H/O tubal ligation History of endometrial ablation S/P cholecystectomy Family History Other Cancer Diabetes Social History Smoking Status: Never smoker second hand exposure: No alcohol intake: never substance use type: denies use current occupational status: other Travel in the last 8 weeks: None household members: family housing: house current occupational exposures/hazards: No caffeine: Yes ROS Obtained: Yes All systems reviewed & no additional complaints except as documented Physical Exam General General appearance: alert and anxious Head Head exam: atraumatic and normocephalic Eye Eye exam: Present normal appearance, PERRL and EOMI ENT ENT exam: Present normal oropharynx and normal external ear exam Neck Neck exam: Present normal inspection and full ROM; Absent tenderness Chest Chest inspection: Present normal inspection, symmetric chest wall rise and tenderness (Left upper anterior chest wall tenderness. Mild erythema noted.) Respiratory Respiratory exam: Present normal lung sounds bilaterally; Absent respiratory distress Cardiovascular Cardiovascular exam: Present regular rate and normal rhythm Abdominal Exam Abdominal e
--- NOTE | 2023-08-23 00:07 | XR_ITS ---
PROCEDURE INFORMATION: Exam: XR Left Shoulder Exam date and time: 08/23/2023 12:29 AM Age: 28 years old Clinical indication: Patient HX: States a piece of lumber hit her left shoulder, C/O pain; Additional info: Shoulder pain TECHNIQUE: Imaging protocol: Radiologic exam of the left shoulder. Views: 2 or more views. Total images: 3 COMPARISON: CR XR CHEST PORTABLE 07/02/2021 1:39 AM FINDINGS: Bones/joints: No acute fracture, joint dislocation, or AC joint separation. No concerning bone lesions or calcifications. Joint spaces are well maintained. Subacromial distance is preserved. Soft tissues: Unremarkable soft tissues. IMPRESSION: Negative left shoulder.
--- NOTE | 2023-08-23 00:07 | XR_ITS ---
PROCEDURE INFORMATION: Exam: XR Left Humerus Exam date and time: 08/23/2023 12:29 AM Age: 28 years old Clinical indication: Patient HX: States a piece of lumber hit her left shoulder/upper arm. C/O pain TECHNIQUE: Imaging protocol: Radiologic exam of the left humerus. Views: 2 or more views. Total images: 2 COMPARISON: CR XR CHEST PORTABLE 07/02/2021 1:39 AM FINDINGS: Bones/joints: No acute fracture or joint dislocation. No concerning bone lesions or calcifications. Joint spaces are well maintained. Soft tissues: Unremarkable soft tissues. IMPRESSION: Negative left humerus.
--- NOTE | 2023-08-23 00:07 | XR_ITS ---
PROCEDURE INFORMATION: Exam: XR Chest Exam date and time: 08/23/2023 12:29 AM Age: 28 years old Clinical indication: Left-sided; Patient HX: States a piece of lumber hit her in the left shoulder, C/O pain left side; Additional info: Left upper chest pain TECHNIQUE: Imaging protocol: Radiologic exam of the chest. Views: 1 view. Total images: 1 COMPARISON: CR XR CHEST PORTABLE 07/02/2021 1:39 AM FINDINGS: Lungs: Hyperinflation. No consolidation. No pulmonary vascular congestion or edema. Breast attenuation artifact. Pleural spaces: Unremarkable. No pleural effusion. No pneumothorax. Heart/Mediastinum: Unremarkable. No cardiomegaly. No mediastinal widening or hilar enlargement. Bones/joints: Unremarkable. IMPRESSION: 1. No radiographically acute cardiopulmonary process. 2. Nonspecific hyperinflation from depth of inspiration or air trapping/reactive airway disease.
--- NOTE | 2023-08-23 00:07 | PC.NURSE ---
in room talking to patient at this time.
--- NOTE | 2023-08-23 00:13 | PC.NURSE ---
RAD in room with patient at this time.
[2023-08-23 01:48] VITALS: BP 137/97; PULSE 88; RESP 16; TEMP 36.6; O2SAT 99
== END 2023-08-23 01:50 | disposition home or self-care (01) ==
PROVIDERS: Emergency Provider Emergency Medicine; PCP Family Medicine
DX: S40.012A Contusion of left shoulder, initial encounter (principal); F32.A Depression, unspecified; W20.8XXA Other cause of strike by thrown, projected or falling object, initial encounter
CPT/HCPCS: 71045; 73030; 73060; 96372; 99284

== ENCOUNTER 2024-06-28 12:38 | Emergency (ER) | payer MEDICAID, SELFPAY ==
[2024-06-28 13:00] VITALS: BP 95/62; PULSE 76; RESP 20; TEMP 37.1; O2SAT 99; BMI 19.7
--- NOTE | 2024-06-28 13:14 | EXP.UTC ---
Discharge Plan Disposition Patient Disposition: Home, Self-Care Condition: Good Prescriptions Prescriptions: New amoxicillin 500 mg capsule 500 mg PO BID 10 Days Qty: 20 0RF No Action buspirone 5 mg tablet 5 mg PO DAILY ropinirole 0.5 mg tablet 0.5 mg PO DAILY escitalopram oxalate 10 mg tablet 10 mg PO DAILY Referrals Follow up/Referrals: Thelma Blake [Primary Care Provider] - See instructions Activity Restrictions/Add. Instructions Additional Instructions/Restrictions: *Monitor Temp, Over the counter Motrin or Tylenol as directed/as needed Tylenol every 4 hours and Motrin every 6 hours (as long as your family doctor has told you that you can take it) for fever or pain. and straight to ER if unable to lower temp less than 101.0 after medication given *Warm salt water gargles may help to soothe the throat *Throat Lozenges? *Warm fluids like tea with honey may help to soothe the throat? *Sleep elevated *Humidifier/Vaporizer Your throat swab was sent for culture. Those results are typically sent to your primary care. Be sure to follow up in 2-3 days with your family doctor/primary care physician if no improvement so they can review those result and treat if necessary. If you don?t have a primary care doctor, I recommend you get one but in the mean time, you will have to return to a walk in clinic Follow up IMMEDIATELY for new or worsening symptoms or no Noticeable improvement over the next 48-72 hours. 911 for difficulty breathing or swallowing Clinical Impressions Clinical Impression: Pharyngitis Qualifiers: Pharyngitis/tonsillitis etiology: unspecified etiology Qualified Code(s): J02.9 - Acute pharyngitis, unspecified Instructions Patient Instructions: Sore Throat, DI for Fever (Symptom) -- Adult Print Language Print Language: Khmer Discharge ED Provider: Mel Muñoz [facility] General Stated complaint: sore throat, fever Mode of Arrival: Ambulatory Source of Information: Patient Limitations: No Limitations Time Seen by Provider: 06/28/24 13:14 Description of Symptoms (Recalled from Triage Doc. by RN): PATIENT C/O SORE THROAT, HEADACHE AND FEVER X 4 DAYS HEENT Symptoms (Recalled from RN notes): Yes Resp Symptoms (Recalled from RN notes): No Skin Symptoms (Recalled from RN notes): No MS Symptoms (Recalled from RN notes): No Functional Status (Recalled from RN notes): WNL History of Present Illness Provider Complaint: Patient states that she has been having sore throat, headache, and fever for about 3-4 days States that son recently had strep throat and now she has blisters all on her throat and thinks that she may have it now too Related Data Home Medications ?Medication ?Instructions ?Recorded ?Confirmed buspirone 5 mg tablet 5 mg PO DAILY 06/28/24 06/28/24 escitalopram oxalate 10 mg tablet 10 mg PO DAILY 06/28/24 06/28/24 ropinirole 0.5 mg tablet 0.5 mg PO DAILY 06/28/24 06/28/24 Previous Rx's ?Medication ?Instructions ?Recorded amoxicillin 500 mg capsule 500 mg PO BID 10 days #20 caps 06/28/24 Allergies Allergy/AdvReac Type Severity Reaction Status Date / Time morphine [MORPHINE] Allergy Unknown Verified 05/16/23 14:00 oxycodone [From PERCOCET] Allergy Unknown Verified 05/16/23 14:00 Worker's Comp Is this a Worker's Comp case?: No [facility] Disclaimer: The information contained in this section may have been updated after the patient was seen, as this information can be updated by other users. Medical History Leukocytosis SIRS (systemic inflammatory response syndrome) Temporomandibular syndrome Surgical History Delivery by section H/O tubal ligation History of endometrial ablation S/P cholecystectomy Family History Other Cancer Diabetes Social History Smoking Status: Never smoker second hand exposure: No alcohol intake: never substance use type: denies use current occupational status: other Travel in the last 8 weeks: None household members: family housing: house current occupational exposures/hazards: No caffeine: Yes ROS Obtained: Yes All systems reviewed & no additional complaints except as documented and Yes Systems reviewed as appropriate & no additional complaints except as documented Constitutional Constitutional: Reports system reviewed and no additional complaints, except as documented, Reports as per HPI, Reports fever(s) and Reports headache(s) ENT Ears, Nose, Mouth, and Throat: Reports system reviewed and no additional complaints, except as documented, Reports as per HPI, Reports headache(s) and Reports sore throat Cardiovascular Cardiovascular: Reports system reviewed and no additional complaints, except as documented and Reports as per HPI Respiratory Respiratory: Reports system reviewed and no additional complaints, except as documented and Reports as per HPI Gastrointestinal Gastrointestingal: Reports system reviewed and no additional complaints, except as documented and as per HPI Neurologic Neurologic: Reports headache(s) Physical Exam General General appearance: alert and in no apparent distress Expanded ENT Exam Throat exam: Present tonsillar erythema (with patchy like area noted ) Respiratory Respiratory exam: Present normal lung sounds bilaterally; Absent respiratory distress or wheezes Cardiovascular Cardiovascular exam: Present regular rate, normal rhythm and normal heart sounds Neurological Exam Neurological exam: Present alert, oriented X3 and normal gait Medical Decision Making Tej Inquiry Pt receiving controlled substance: No Tej was queried for this patient: No Vital Signs: 06/28/24 13:00 Temperature 98.8 F Temperature Source Oral Pulse Rate [Left Brachial] 76 Respiratory Rate 20 Blood Pressure [Left Arm] 95/62 L Blood Pressure Mean [Left Arm] 73 Blood Pressure Source [Left Arm] Automatic Cuff Blood Pressure Position [Left Arm] Sitting 02 Sat by Pulse Oximetry 99 Oxygen Delivery Method Room Air Lab Data Lab results reviewed: Yes I reviewed the patient's lab results.
[2024-06-28 13:19] LABS: UTC Strep Screen (Rapid) Negative (Negative)
[2024-06-28 13:22] VITALS: BP 104/68
[2024-06-28 13:23] VITALS: BP 104/68; PULSE 76; RESP 20; TEMP 37.1; O2SAT 99
== END 2024-06-28 13:26 | disposition home or self-care (01) ==
PROVIDERS: Emergency Provider Nurse Practitioner; PCP Family Medicine
DX: J02.9 Acute pharyngitis, unspecified (principal); R50.9 Fever, unspecified; R51.9 Headache, unspecified; Z20.818 Contact with and (suspected) exposure to other bacterial communicable diseases
CPT/HCPCS: 87880; 99212; 99214; G0463

== ENCOUNTER 2025-03-31 09:22 | Outpatient (CLI) | payer MEDICAID, SELFPAY ==
[2025-03-31 09:38] LABS: Basophils # 0.1 K/mm3 (0-0.2); Basophils % 1.1 % (0.1-2.0); Eosinophils # 0.4 Kmm3 (0.0-0.4); Hematocrit 42.5 % (37.0-47.0); Hemoglobin 14.3 g/dL (12.2-16.2); Immature Granulocytes # 0.01 10^3uL; Immature Granulocytes % 0.2 %; Lymphocytes # 1.2 K/mm3 (0.7-4.5); Lymphocytes % 22.2 % (10-50); Mean Corpuscular HGB Conc 33.6 g/dL (31.8-35.4); Mean Corpuscular Hemoglobin 31.2 pg (27.0-31.2); Mean Corpuscular Volume 92.8 fl (81-99); Mean Platelet Volume 9.8 fl (7.4-10.4); Monocytes # 0.5 K/mm3 (0.1-1.0); Monocytes % 9.8 % (1.7-9.3); Neutrophils # 3.2 K/mm3 (1.8-7.8); Neutrophils % 59.7 % (37.0-80.0); Nucleated Red Blood Cells # 0 10^3/uL; Nucleated Red Blood Cells % 0 %; Platelet Count 253 K/mm3 (142-424); Red Blood Count 4.58 M/mm3 (4.20-5.40); Red Cell Distribution Width 12.5 % (11.5-17.5); Red Cell Distribution Width-SD 42.7 fL; White Blood Count 5.3 K/mm3 (4.8-10.8)
[2025-03-31 10:24] LABS: Alanine Aminotransferase 12 U/L (12-78); Albumin Level 4.6 g/dl (3.5-5.0); Albumin/Globulin Ratio 1.8 (1.1-1.8); Alkaline Phosphatase 44 U/L (38-126); Amylase 62 U/L (30-110); Anion Gap 10.4 mEq/L (5-15); Aspartate Amino Transferase 22 U/L (14-36); Bilirubin,Total 0.4 mg/dl (0.2-1.3); Blood Urea Nitrogen 12 mg/dl (7-17); Carbon Dioxide 28 mmol/L (22.0-30.0); Chloride 105 mmol/L (98-107); Estimated Glomerular Filt Rate 84 ml/min (>60); GFR (African American) 102 ML/MIN (>60); Globulin 2.6 g/dL (1.3-3.2); Glucose 108 mg/dl (74-100); Lipase 64 U/L (23-300); Potassium 4.4 mmoL/L (3.5-5.1); Sodium 139 mmol/L (136-145); Total Protein,Serum 7.2 g/dl (6.3-8.2)
[2025-03-31 10:29] LABS: C-Reactive Protein 0.8 mg/L (0-4)
== END 2025-03-31 23:59 | disposition home or self-care (01) ==
LOC: LAB 09:24
PROVIDERS: Visit Provider Internal Medicine Gastroenterology
DX: R10.13 Epigastric pain (principal); K74.69 Other cirrhosis of liver; B19.20 Unspecified viral hepatitis C without hepatic coma
CPT/HCPCS: 36415; 80053; 82150; 83690; 85025; 86140

== ENCOUNTER → 2025-06-03 12:46 | Day surgery (SDC) | payer MEDICAID, SELFPAY ==
[2025-06-01 14:08] VITALS: BMI 20.2
--- NOTE | 2025-06-03 11:40 | EXP.HP ---
History of Present Illness *Admission Date: 06/03/25 *Reason for visit:: Upper abdominal pain *History of present illness: Mrs. Purvis is a 30-year-old female who is here for diagnostic EGD. The patient reports daily upper abdominal pain especially in the epigastrium and left upper quadrant. She does feel bloating. She has nausea and early satiety. Her symptoms are worsened postprandially. The pain can radiate into the back. She reports no gassiness but does get some belching. She reports no weight loss but cannot gain weight. She does have irregular bowel function with alternating mixed diarrhea and constipation. She will occasionally have regular bowel function. She does report complete evacuation but does report smaller caliber stools and excessive wiping. She reports no heartburn, reflux or dysphagia. She reports no rectal bleeding but does note mucus in her stools at times. She has had symptoms for several years. She did have cholecystectomy but this did not help with her symptoms. She was seen intermittently in the ED and has had marked leukocytosis at times when she goes to the ED. Her amylase and lipase were previously normal. She does state that her brother had pancreatitis at a young age. She does have Crohn's disease on the paternal side of her family. She did have a colonoscopy with nv in June 2020. This was normal to the terminal ileum. Her CAT scan in September 2019 was normal. She also had a CAT scan of the abdomen and pelvis in December 2022 and there was some fluid noted within the colon which was nonspecific. [facility] Disclaimer: The information contained in this section may have been updated after the patient was seen, as this information can be updated by other users. Medical History Cat bite of left lower leg Leukocytosis SIRS (systemic inflammatory response syndrome) Temporomandibular syndrome Surgical History S/P cholecystectomy Delivery by section History of endometrial ablation H/O tubal ligation Family History Other Cancer Diabetes Social History Smoking Status: Current every day smoker tobacco type: cigarettes packs per day: 1 and e-cigarettes second hand exposure: No alcohol intake: never substance use type: denies use current occupational status: disabled Travel in the last 8 weeks?: None household members: family housing: house current occupational exposures/hazards: No caffeine: Yes Have you lived/traveled outside [place] in past 30 days?: No Contact w/someone who lives/traveled outside US past 30 days?: No Exposure to someone with infectious disease in past 14 days?: No Do you have a fever (greater than 100.4 F or 38 C)?: No Have you tested positive for COVID-19?: No Exposed to someone with COVID-19 in past 14 days?: No Do you have a sore throat?: No Do you have a cough?: No Do you have any weakness?: No Do you have any diarrhea?: No Are you experiencing any unusual bleeding?: No Do you have any muscle aches/pain?: No Do you have any abdominal pain?: No Are you experiencing loss of taste or smell?: No Other Medical History Have you received the Flu Vaccine for this season: No Have you received the Pneumonia Vaccine: No Review of Systems Review of Systems Review of systems (narrative): Negative *Cardiovascular Comments: Negative *Gastrointestinal Comments: Negative *Genitourinary Comments: Negative *Musculoskeletal Comments: Negative *Neurologic Comments: Negative Meds Home Medications and Allergies Home Medications ?Medication ?Instructions ?Recorded ?Confirmed ?Type buspirone 10 mg capsule 10 mg PO BID 06/03/25 06/03/25 History New Prescriptions to Start Prescriptions: Allergies Allergy/AdvReac Type Severity Reaction Status Date / Time morphine (MORPHINE) Allergy Unknown Numbness Verified 06/03/25 13:01 oxycodone (From PERCOCET) Allergy Unknown Numbness Verified 06/03/25 13:01 Exam Data for Last 24 hours I & O for Last 24 hours: Intake & Output 05/31/25 06/01/25 06/02/25 06/03/25 23:59 23:59 23:59 23:59 Weight 114 lb *Routine HEENT Exam Head: Present normocephalic Eye: Present EOMI and PERRL ENT: Present mucous membranes moist *Routine Neck Exam Neck: Present supple *Routine Respiratory Exam Respiratory: Present CTA bilaterally *Routine Cardiovascular Exam Cardiovascular: Present RRR *Routine Abdominal Exam Abdominal: Present soft and normoactive bowel sounds; Absent tenderness *Routine Rectal Exam Rectal:: deferred *Routine Genitalia Exam Genitalia:: deferred *Routine Extremities Exam Extremities: Absent cyanosis, clubbing or edema *Routine Skin Exam Skin: Present warm; Absent rash *Routine Neurological Exam Neurological: Present alert and oriented X3 Assessment and Plan *Assessment and plan (1) Dyspepsia: Status: Acute Category: Medical Code(s): R10.13 - Epigastric pain (2) Early satiety: Status: Acute Category: Medical Code(s): R68.81 - Early satiety (3) Nausea: Status: Acute Category: Medical Code(s): R11.0 - Nausea (4) Bloating: Status: Acute Category: Medical Code(s): R14.0 - Abdominal distension (gaseous) (5) Epigastric pain: Status: Acute Category: Medical Code(s): R10.13 - Epigastric pain Plan A/P: 1. Dyspepsia with epigastric pain, nausea, early satiety and bloating is the preprocedural diagnosis. The patient will be anesthetized/sedated using MAC sedation. The patient has been seen and examined. Cardiac and lung assessment prior to the examination is stable. Proceed with planned diagnostic EGD.
--- NOTE | 2025-06-03 11:43 | P.PCN_ITS ---
[facility] Procedure Note Date: 06/03/25 Time: 13:59 Procedure Note:: Upper Endoscopy Procedure Report: Esophagogastroduodenoscopy with cold biopsies Endoscopost: Benny Chong II, MD Referring Physician: Thelma Blake MD [address] [place] [id number] Date of Procedure: June 03, 2025 Equipment: Olympus GIF-1100 standard upper endoscope Sedation: MAC sedation Indications: Mrs. Purvis is a 30-year-old female who is here for diagnostic EGD. The patient reports daily upper abdominal pain especially in the epigastrium and left upper quadrant. She does feel bloating. She has nausea and early satiety. Her symptoms are worsened postprandially. The pain can radiate into the back. She reports no gassiness but does get some belching. She reports no weight loss but cannot gain weight. She does have irregular bowel function with alternating mixed diarrhea and constipation. She will occasionally have regular bowel function. She does report complete evacuation but does report smaller caliber stools and excessive wiping. She reports no heartburn, reflux or dysphagia. She reports no rectal bleeding but does note mucus in her stools at times. She has had symptoms for several years. She did have cholecystectomy but this did not help with her symptoms. She was seen intermittently in the ED and has had marked leukocytosis at times when she goes to the ED. Her amylase and lipase were previously normal. She does state that her brother had pancreatitis at a young age. She does have Crohn's disease on the paternal side of her family. She did have a colonoscopy with or in June 2020. This was normal to the terminal ileum. Her CAT scan in September 2019 was normal. She also had a CAT scan of the abdomen and pelvis in December 2022 and there was some fluid noted within the colon which was nonspecific. The patient's former celiac serologic testing from June 2020 was normal. Procedure: Prior to the procedure, a history and physical exam was performed, and patient's medications and allergies were reviewed. The risks, benefits and alternatives of the sedation and procedure were discussed with the patient. All questions were answered and informed consent was obtained. The patient was brought to the procedure room. Patient identification and proposed procedure were verified by the physician and the nurse. The patient was placed in a left lateral decubitus position and the scope was passed under direct vision. Throughout the procedure, the patient's blood pressure, pulse, and oxygen saturations were monitored continuously. The upper GI endoscopy was accomplished without difficulty. The patient tolerated the procedure well. Findings: The scope was passed directly into the upper esophagus and advanced to the fourth portion of duodenum and proximal jejunum. A cold biopsy was taken from the proximal jejunum for the disaccharidase assay. The proximal jejunum, post bulbar duodenum, ampulla and duodenal bulb were normal with normal mucosa and conniventes. The scope was withdrawn through a normal duodenal bulb and pylorus into the stomach. There was linear reactive gastropathy of the antrum. The body and fundus of the stomach were normal. Cold biopsies were taken from the antrum and lesser curvature. Upon retroflexion there was no hiatal hernia. The scope was then withdrawn into the esophagus. There was no evidence of reflux esophagitis or Whitaker's. The remainder of the esophageal mucosa was normal. Impression: 1. Mild linear reactive gastropathy of antrum Plan: I will follow-up the biopsies and disaccharidase assay. 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 We will discuss treatment options today. I will inquire whether she started the fiber bowel regimen (combined MiraLAX plus Metamucil), Iberogast and buspirone.
[2025-06-03] MEDS: LACTATED RINGERS 1000ML 1,000 ML 50 ML IV (13:00)
[2025-06-03 13:02] VITALS: BP 114/68; PULSE 70; RESP 18; TEMP 36.5; O2SAT 99
--- NOTE | 2025-06-03 13:34 | P.PNANES_ITS ---
[facility] Disclaimer: The information contained in this section may have been updated after the patient was seen, as this information can be updated by other users. Medical History Cat bite of left lower leg Leukocytosis SIRS (systemic inflammatory response syndrome) Temporomandibular syndrome Surgical History S/P cholecystectomy Delivery by section History of endometrial ablation H/O tubal ligation Family History Other Cancer Diabetes Social History Smoking Status: Current every day smoker tobacco type: cigarettes packs per day: 1 and e-cigarettes second hand exposure: No alcohol intake: never substance use type: denies use current occupational status: disabled Travel in the last 8 weeks?: None household members: family housing: house current occupational exposures/hazards: No caffeine: Yes Have you lived/traveled outside [place] in past 30 days?: No Contact w/someone who lives/traveled outside [place] past 30 days?: No Exposure to someone with infectious disease in past 14 days?: No Do you have a fever (greater than 100.4 F or 38 C)?: No Have you tested positive for COVID-19?: No Exposed to someone with COVID-19 in past 14 days?: No Do you have a sore throat?: No Do you have a cough?: No Do you have any weakness?: No Do you have any diarrhea?: No Are you experiencing any unusual bleeding?: No Do you have any muscle aches/pain?: No Do you have any abdominal pain?: No Are you experiencing loss of taste or smell?: No [facility] Anesthesia Checklist Patient Identification Patient Identification: Arm Band Structural Data Admitted From: Home Planned Operative Procedure/s: EGD Consent for Planned Operative Procedure(s) Verified: Yes Verified Documents: Surgical Consent and History and Physical NPO Status Verified Time NPO: 00:00 Additional verifications Anesthesia Reactions: No Hx Blood Transfusions: Yes (2010) Blood Transfusion Reaction: No Airway Assessment Mallampati Score:: Class II C-Spine Mobility Assessed: Yes TMJ Mobility Assessed: Yes Dentition: Good Dentition Neurological Assessment Level of Consciousness: Awake, Alert and Appropriate Anesthesia Plan Anesthesia Risk discussed: Yes Anesthesia Plan: Verified ASA Class: II Anesthesia Type: MAC
[2025-06-03 13:47] LABS: HCG Qualitative, Serum Negative (Negative)
[2025-06-03 14:00] VITALS: BP 100/61; PULSE 65; RESP 17; TEMP 36.3; O2SAT 99
[2025-06-03 14:10] VITALS: BP 98/64; PULSE 77; RESP 17; O2SAT 100
[2025-06-03 14:20] VITALS: BP 122/69; PULSE 74; RESP 17; O2SAT 100
[2025-06-03 14:30] VITALS: BP 117/71; PULSE 65; RESP 17; TEMP 36.3; O2SAT 100
[2025-06-08 18:13] LABS: Interpretation Notes (.); Lactase 27.84 (>/= 14.0); Maltase 228.73 (>/= 110.0); Palatinase 12.68 (>/= 8.5); Reference Notes (.); Sucrase 50.71 (>/= 25.0)
== END | disposition home or self-care (01) ==
PROVIDERS: PCP Family Medicine; Visit Provider Internal Medicine Gastroenterology
PROC: 0DJ08ZZ Inspection of Upper Intestinal Tract, Via Natural or Artificial Opening Endoscopic (ICD-10-PCS; CPT 43239; principal; 2025-06-03 14:00)
DX: K31.89 Other diseases of stomach and duodenum (principal); F17.210 Nicotine dependence, cigarettes, uncomplicated; Z88.5 Allergy status to narcotic agent; Z88.6 Allergy status to analgesic agent
CPT/HCPCS: 43239; 82657; 84703; J2003; J2704; J7120